=== PATIENT | male | born 1965 | race African-American/Black ===

== ENCOUNTER 2017-01-03 05:54 | Emergency (ER) | payer MEDICAID ==
[~2017-01-03] VITALS: Ht 175.3 cm; Wt 113.0 kg
[~2017-01-03 05:54] MED LIST: ALPR2TAB2 PO; AMIT10TA6 PO; ASPI81TA2 PO; ATOR20TA PO; CLOP75TA2 PO; HYDR-519 PO; Lisinopril PO; PHEN100C4 PO; QUET25TA PO
[2017-01-03] MEDS ORDERED: ACETAMINOPHEN 500MG TABLET PO ONE (08:00)
[2017-01-03] MEDS: FUROSEMIDE 40MG TABLET PO ONE ×2 (08:07→08:37)
[2017-01-03 08:16] LABS: BASOPHILS % 0.8 % (0.0-2.0); HEMATOCRIT. 40.6 % (42.0-52.0); HEMOGLOBIN. 13.4 g/dL (14.0-18.0); LYMPHOCYTES % 11.6 % (20.0-50.0); MEAN CORPUSCULAR HEMOGLOBIN 31.3 pg (28.0-32.0); MEAN CORPUSCULAR VOLUME 94.6 fL (80.0-94.0); MEAN PLATELET VOLUME 7.2 fl (7.4-10.4); MONOCYTES % 8.3 % (2.0-8.0); NEUTROPHILS % 78.3 % (40.0-76.0); PLATELET 422 x1000/uL (130-400); RED BLOOD CELL COUNT 4.29 mill/uL (4.7-6.1); RED CELL DISTRIBUTION WIDTH 14.9 % (11.6-14.6); WHITE BLOOD COUNT 15.5 x1000/uL (4.5-11.0)
[2017-01-03] MEDS ORDERED: ALBUTEROL (0.083%) 2.5MG/3ML NEB HHN STA (08:28)
[2017-01-03] MEDS ORDERED: IPRATROPIUM BROMIDE (0.02%) 0.5MG/2.5ML NEB HHN STA (08:28)
[2017-01-03 08:30] LABS: CLARITY URINE CLEAR (CLEAR); COLOR URINE DARK YELLOW (YELLOW); GLUCOSE URINE NEGATIVE (NEGATIVE); KETONES URINE NEGATIVE (NEGATIVE); LEUKOCYTE ESTERASE URINE NEGATIVE (NEGATIVE); NITRITE URINE NEGATIVE (NEGATIVE); OCCULT BLOOD URINE NEGATIVE (NEGATIVE); PROTEIN URINE NEGATIVE (NEGATIVE); SPECIFIC GRAVITY URINE 1.028 (1.005-1.030); UROBILINOGEN URINE 0.2 E.U./dL (0.2-1.0)
[2017-01-03 08:31] LABS: INR 1.2; PARTIAL THROMBOPLASTIN TIME 31.8 sec (24.0-34.0); PROTHROMBIN TIME 12.2 sec
[2017-01-03 08:36] LABS: ALANINE AMINOTRANSFERASE 84 IU/L (13-61); ALBUMIN 3.3 g/dL (3.4-5.0); ANION GAP 10; CALCIUM 8.8 mg/dL (8.5-10.1); CARBON DIOXIDE 31 mEq/L (21-32); CHLORIDE 103 mEq/L (98-107); ETHANOL BLOOD < 10 mg/dL; INDEX HEMOLYSI 1 (1-3); INDEX ICTERIC 1 (1-4); INDEX LIPEMIC 1 (1-3); NT PRO B-TYPE NATRIURETIC PEP 56 pg/mL (5-125); TROPONIN I < 0.02 ng/mL (0.00-0.04); UREA NITROGEN BLOOD 9 mg/dL (7-21); eGFR > 60 mL/min (>60)
[2017-01-03] MEDS ORDERED: ALBUTEROL (0.5%) 2.5MG/0.5ML NEB HHN ONE (08:46)
[2017-01-03 08:49] LABS: *AMPHETAMINES SCREEN URINE NEGATIVE (NEGATIVE); *BARBITURATES SCREEN URINE NEGATIVE (NEGATIVE); *BENZODIAZEPINES SCREEN URINE PRESUMTIVE POSITIVE (NEGATIVE); *COCAINE SCREEN URINE PRESUMTIVE POSITIVE (NEGATIVE); CANNABINOID URINE SCREEN PRESUMTIVE POSITIVE (NEGATIVE); ECSTASY MDMA SCREEN URINE NEGATIVE (NEGATIVE); METHADONE URINE SCREEN NEGATIVE (NEGATIVE); OPIATES URINE SCREEN PRESUMTIVE POSITIVE (NEGATIVE); PHENCYCLIDINE URINE SCREEN NEGATIVE (NEGATIVE)
[2017-01-03] MEDS ORDERED: KETOROLAC 60MG/2ML VIAL IM ONE (16:15)
[2017-01-04 11:30] VITALS: BP 112/68
== END 2017-01-04 12:45 | disposition home or self-care (01) ==
LOC: ER 07:05
DX: J44.1 Chronic obstructive pulmonary disease with (acute) exacerbation (principal); F32.9 Major depressive disorder, single episode, unspecified; R45.851 Suicidal ideations; R60.0 Localized edema; R10.31 Right lower quadrant pain; J44.9 Chronic obstructive pulmonary disease, unspecified; F17.210 Nicotine dependence, cigarettes, uncomplicated; F14.10 Cocaine abuse, uncomplicated; F12.10 Cannabis abuse, uncomplicated; F11.10 Opioid abuse, uncomplicated; F19.10 Other psychoactive substance abuse, uncomplicated; I50.9 Heart failure, unspecified; M19.90 Unspecified osteoarthritis, unspecified site; M79.605 Pain in left leg; M79.604 Pain in right leg; Z59.0 Homelessness
CPT/HCPCS: 29505; 36415; 71010; 73562; 74176; 80053; 80305; 81003; 83880; 84484; 85025; 85610; 85730; 93005; 93970; 94640; 99285; G0482; J7611; Z7610

== ENCOUNTER 2017-02-03 23:37 | Emergency (ER) | payer MEDICAID ==
[~2017-02-03] VITALS: Ht 175.3 cm; Wt 116.0 kg
[2017-02-04 00:25] LABS: BASOPHILS % 0.4 % (0.0-2.0); EOSINOPHILS % 2.5 % (0.0-5.0); HEMATOCRIT. 37.6 % (42.0-52.0); HEMOGLOBIN. 12.6 g/dL (14.0-18.0); LYMPHOCYTES % 26.9 % (20.0-50.0); MEAN CORPUSCULAR HEMOGLOBIN 31.2 pg (28.0-32.0); MEAN CORPUSCULAR HGB CONC 33.6 g/dL (31.0-37.0); MEAN CORPUSCULAR VOLUME 92.8 fL (80.0-94.0); MONOCYTES % 8.6 % (2.0-8.0); NEUTROPHILS % 61.6 % (40.0-76.0); PLATELET 476 x1000/uL (130-400); RED BLOOD CELL COUNT 4.05 mill/uL (4.7-6.1); RED CELL DISTRIBUTION WIDTH 14.1 % (11.6-14.6)
[2017-02-04 00:32] LABS: INR 1.2; PROTHROMBIN TIME 12.2 sec
[2017-02-04 00:40] LABS: ALANINE AMINOTRANSFERASE 27 IU/L (13-61); ALBUMIN 3.2 g/dL (3.4-5.0); ANION GAP 14; CALCIUM 8.5 mg/dL (8.5-10.1); CARBON DIOXIDE 26 mEq/L (21-32); CHLORIDE 109 mEq/L (98-107); ETHANOL BLOOD 107 mg/dL; INDEX HEMOLYSI 1 (1-3); INDEX ICTERIC 1 (1-4); INDEX LIPEMIC 1 (1-3); NT PRO B-TYPE NATRIURETIC PEP 218 pg/mL (5-125); TROPONIN I < 0.02 ng/mL (0.00-0.04); UREA NITROGEN BLOOD 6 mg/dL (7-21); eGFR > 60 mL/min (>60)
[2017-02-04 01:05] LABS: *AMPHETAMINES SCREEN URINE NEGATIVE (NEGATIVE); *BARBITURATES SCREEN URINE NEGATIVE (NEGATIVE); *BENZODIAZEPINES SCREEN URINE NEGATIVE (NEGATIVE); *COCAINE SCREEN URINE PRESUMTIVE POSITIVE (NEGATIVE); CANNABINOID URINE SCREEN PRESUMTIVE POSITIVE (NEGATIVE); ECSTASY MDMA SCREEN URINE NEGATIVE (NEGATIVE); METHADONE URINE SCREEN NEGATIVE (NEGATIVE); OPIATES URINE SCREEN NEGATIVE (NEGATIVE); PHENCYCLIDINE URINE SCREEN NEGATIVE (NEGATIVE)
[2017-02-04] MEDS ORDERED: ACETAMINOPHEN 325MG TABLET PO ONE (08:00)
[2017-02-04] MEDS ORDERED: QUETIAPINE FUMARATE 50MG TABLET PO SCH (18:30)
[2017-02-04 19:30] VITALS: BP 120/66
== END 2017-02-04 22:05 | disposition home or self-care (01) ==
LOC: ER 23:38
DX: T40.5X1A Poisoning by cocaine, accidental (unintentional), initial encounter (principal); R07.9 Chest pain, unspecified; F17.200 Nicotine dependence, unspecified, uncomplicated; I10 Essential (primary) hypertension; Z86.73 Personal history of transient ischemic attack (TIA), and cerebral infarction without residual deficits; Z79.82 Long term (current) use of aspirin; Y92.89 Other specified places as the place of occurrence of the external cause
CPT/HCPCS: 36415; 70450; 71010; 80053; 80305; 83880; 84484; 85025; 85610; 93005; 99285; G0482; Z7610

== ENCOUNTER 2017-07-16 06:12 | Inpatient (IN) | payer MEDICAID ==
[~2017-07-16] VITALS: Ht 170.2 cm; Wt 140.2 kg
[~2017-07-16 06:12] MED LIST changes: +ASPI-1160 PO; -ASPI81TA2 PO; +CLOP75TA16 PO; -CLOP75TA2 PO
[2017-07-16] MEDS ORDERED: FUROSEMIDE 40MG/4ML VIAL IVP ONE (07:00)
[2017-07-16] MEDS ORDERED: NITROGLYCERIN OINT 1GM/INCH UDPKT TD ONE (07:00)
[2017-07-16 07:28] LABS: BASOPHILS % 0.7 % (0.0-2.0); EOSINOPHILS % 1.7 % (0.0-5.0); HEMATOCRIT. 36.2 % (42.0-52.0); LYMPHOCYTES % 17.6 % (20.0-50.0); MEAN CORPUSCULAR HEMOGLOBIN 29.7 pg (28.0-32.0); MEAN CORPUSCULAR VOLUME 89.6 fL (80.0-94.0); MEAN PLATELET VOLUME 7.3 fl (7.4-10.4); MONOCYTES % 13.2 % (2.0-8.0); NEUTROPHILS % 66.8 % (40.0-76.0); PLATELET 453 x1000/uL (130-400); RED BLOOD CELL COUNT 4.03 mill/uL (4.7-6.1); RED CELL DISTRIBUTION WIDTH 14.9 % (11.6-14.6)
[2017-07-16 07:30] LABS: INR 1.3; PROTHROMBIN TIME 13.3 sec (9.4-11.6)
[2017-07-16] MEDS ORDERED: LORAZEPAM 1MG TABLET PO ONE (07:30)
[2017-07-16 07:40] LABS: CARBON DIOXIDE 24 mEq/L (21-32); CHLORIDE 107 mEq/L (98-107); ETHANOL BLOOD < 10 mg/dL; TROPONIN I < 0.02 ng/mL (0.00-0.04)
[2017-07-16] MEDS ORDERED: ONDANSETRON HCL 4MG/2ML VIAL IV ONE (08:15)
[2017-07-16] MEDS ORDERED: MORPHINE SULFATE 4 MG/ML CPJ (NOT FOR IM USE) IV ONE (08:15)
[2017-07-16 09:00] LABS: CLARITY URINE CLEAR (CLEAR); COLOR URINE YELLOW (YELLOW); GLUCOSE URINE NEGATIVE (NEGATIVE); KETONES URINE 1+ (NEGATIVE); LEUKOCYTE ESTERASE URINE NEGATIVE (NEGATIVE); NITRITE URINE NEGATIVE (NEGATIVE); OCCULT BLOOD URINE NEGATIVE (NEGATIVE); PROTEIN URINE TRACE (NEGATIVE); SPECIFIC GRAVITY URINE 1.029 (1.005-1.030); UROBILINOGEN URINE 0.2 E.U./dL (0.2-1.0)
[2017-07-16 09:25] LABS: *AMPHETAMINES SCREEN URINE NEGATIVE (NEGATIVE); *BARBITURATES SCREEN URINE NEGATIVE (NEGATIVE); *BENZODIAZEPINES SCREEN URINE NEGATIVE (NEGATIVE); *COCAINE SCREEN URINE PRESUMTIVE POSITIVE (NEGATIVE); CANNABINOID URINE SCREEN PRESUMTIVE POSITIVE (NEGATIVE); METHADONE URINE SCREEN NEGATIVE (NEGATIVE); OPIATES URINE SCREEN NEGATIVE (NEGATIVE); PHENCYCLIDINE URINE SCREEN NEGATIVE (NEGATIVE)
[2017-07-16] MEDS ORDERED: SODIUM CHLORIDE 0.9% 10ML VIAL ONE (11:08)
[2017-07-16] MEDS ORDERED: IOHEXOL-350 100 ML BOTTLE ONE (11:08)
[2017-07-16 11:15] VITALS: BP 122/92
[2017-07-16 11:51] VITALS: BP 122/92
[2017-07-16 12:30] VITALS: BP 122/72
[2017-07-16] MEDS ORDERED: IPRATROPIUM/ALBUTEROL 0.5-3(2.5)MG/3ML NEB INH PRN (13:00)
[2017-07-16] MEDS ORDERED: DIPHENHYDRAMINE 50MG/ML VIAL IV PRN (13:00)
[2017-07-16] MEDS ORDERED: ACETAMINOPHEN 325MG TABLET PO PRN (13:00)
[2017-07-16] MEDS ORDERED: DOCUSATE SODIUM 100MG CAPSULE PO PRN (13:00)
[2017-07-16] MEDS ORDERED: ONDANSETRON HCL 4MG/2ML VIAL IV PRN (13:00)
[2017-07-16] MEDS: ENOXAPARIN 40MG/0.4ML SYR SUBCUT SCH ×2 (13:00→21:00)
[2017-07-16] MEDS ORDERED: GUAIFENESIN 200MG/10ML SUGAR FREE UDC PO PRN (13:00)
[2017-07-16] MEDS ORDERED: ALPRAZOLAM 0.25 MG TABLET PO PRN (13:00)
[2017-07-16] MEDS: ASPIRIN 81MG EC TABLET PO SCH (13:17)
[2017-07-16] MEDS: HYDROCODONE/ACETAMINOPHEN 10/325MG TABLET PO PRN (13:24)
[2017-07-16 16:00] VITALS: BP 110/69
[2017-07-16 16:21] LABS: CREATINE KINASE 729 IU/L (39-308); TROPONIN I < 0.02 ng/mL (0.00-0.04)
[2017-07-16 20:00] VITALS: BP 131/87
[2017-07-16] MEDS ORDERED: ALPRAZOLAM 0.5 MG TABLET PO PRN (20:00)
[2017-07-16] MEDS: MORPHINE SULFATE 4 MG/ML CPJ (NOT FOR IM USE) IV PRN (20:09)
[2017-07-16] MEDS: ATORVASTATIN CALCIUM 40MG TABLET PO SCH (21:54)
[2017-07-16] MEDS: AMITRIPTYLINE 10MG TABLET PO SCH (21:54)
[2017-07-16 23:37] LABS: CREATINE KINASE 655 IU/L (39-308); TROPONIN I < 0.02 ng/mL (0.00-0.04)
[2017-07-17] VITALS: BP 123/66
[2017-07-17 04:00] VITALS: BP 111/46
[2017-07-17 08:00] VITALS: BP 103/49
[2017-07-17] MEDS: ENOXAPARIN 40MG/0.4ML SYR SUBCUT SCH ×2 (08:57→21:00)
[2017-07-17] MEDS: CLOPIDOGREL 75MG TABLET PO SCH (08:58)
[2017-07-17] MEDS: QUETIAPINE FUMARATE 50MG TABLET PO SCH (08:58)
[2017-07-17] MEDS: ASPIRIN 81MG EC TABLET PO SCH (08:58)
[2017-07-17] MEDS: MORPHINE SULFATE 4 MG/ML CPJ (NOT FOR IM USE) IV PRN (09:00)
[2017-07-17] MEDS ORDERED: ASPIRIN 81MG TABLET PO SCH (09:00)
[2017-07-17] MEDS: PHENYTOIN SODIUM EXTENDED 100MG CAPSULE PO SCH (09:00)
[2017-07-17 11:40] LABS: BASOPHILS % 0.9 % (0.0-2.0); EOSINOPHILS % 2.9 % (0.0-5.0); HEMATOCRIT. 35.3 % (42.0-52.0); HEMOGLOBIN. 11.8 g/dL (14.0-18.0); LYMPHOCYTES % 16.7 % (20.0-50.0); MEAN CORPUSCULAR VOLUME 89.8 fL (80.0-94.0); MONOCYTES % 10.6 % (2.0-8.0); NEUTROPHILS % 68.9 % (40.0-76.0); PLATELET 369 x1000/uL (130-400); RED BLOOD CELL COUNT 3.93 mill/uL (4.7-6.1); RED CELL DISTRIBUTION WIDTH 14.2 % (11.6-14.6)
[2017-07-17 12:02] LABS: CARBON DIOXIDE 30 mEq/L (21-32); CHLORIDE 103 mEq/L (98-107); HDL CHOLESTEROL 29 mg/dL (40-59); LDL CHOLESTEROL 91 mg/dL (5-100); T4 FREE 0.78 ng/dL (0.76-1.46)
[2017-07-17 16:00] VITALS: BP 128/80
[2017-07-17 20:00] VITALS: BP 145/63
[2017-07-17] MEDS: ATORVASTATIN CALCIUM 40MG TABLET PO SCH (21:00)
[2017-07-17] MEDS: AMITRIPTYLINE 10MG TABLET PO SCH (21:00)
[2017-07-18] VITALS: BP 149/83
[2017-07-18 04:00] VITALS: BP 126/88
[2017-07-18 08:00] VITALS: BP 104/79
[2017-07-18] MEDS: ENOXAPARIN 40MG/0.4ML SYR SUBCUT SCH ×2 (09:00→21:00)
[2017-07-18] MEDS: ASPIRIN 81MG EC TABLET PO SCH ×2 (09:00→09:11)
[2017-07-18] MEDS: QUETIAPINE FUMARATE 50MG TABLET PO SCH ×3 (09:00→21:25)
[2017-07-18] MEDS: PHENYTOIN SODIUM EXTENDED 100MG CAPSULE PO SCH (09:00)
[2017-07-18] MEDS: CLOPIDOGREL 75MG TABLET PO SCH ×2 (09:00→09:11)
[2017-07-18 12:00] VITALS: BP 141/94
[2017-07-18] MEDS: ALPRAZOLAM 0.5 MG TABLET PO PRN (14:18)
[2017-07-18] MEDS: HYDROCODONE/ACETAMINOPHEN 10/325MG TABLET PO PRN (14:19)
[2017-07-18 16:00] VITALS: BP 138/87
[2017-07-18] MEDS: MUPIROCIN 2% CREAM 15GM TOP SCH ×2 (16:00→21:25)
[2017-07-18 20:00] VITALS: BP 139/92
[2017-07-18] MEDS: AMITRIPTYLINE 10MG TABLET PO SCH (21:25)
[2017-07-18] MEDS: ATORVASTATIN CALCIUM 40MG TABLET PO SCH (21:25)
[2017-07-19] VITALS: BP 120/63
[2017-07-19 04:00] VITALS: BP 136/82
[2017-07-19] MEDS: MUPIROCIN 2% CREAM 15GM TOP SCH ×3 (06:00→20:45)
[2017-07-19 08:00] VITALS: BP 99/64
[2017-07-19] MEDS: ENOXAPARIN 40MG/0.4ML SYR SUBCUT SCH ×2 (09:00→20:42)
[2017-07-19] MEDS: PHENYTOIN SODIUM EXTENDED 100MG CAPSULE PO SCH (09:00)
[2017-07-19] MEDS: ASPIRIN 81MG EC TABLET PO SCH (09:16)
[2017-07-19] MEDS: CLOPIDOGREL 75MG TABLET PO SCH (09:16)
[2017-07-19] MEDS: ALPRAZOLAM 0.5 MG TABLET PO PRN (09:21)
[2017-07-19 12:00] VITALS: BP 101/68
[2017-07-19 16:00] VITALS: BP 124/80
[2017-07-19] MEDS: HYDROCODONE/ACETAMINOPHEN 10/325MG TABLET PO PRN (17:49)
[2017-07-19 20:00] VITALS: BP 131/75
[2017-07-19] MEDS: QUETIAPINE FUMARATE 50MG TABLET PO SCH (20:42)
[2017-07-19] MEDS: AMITRIPTYLINE 10MG TABLET PO SCH (20:42)
[2017-07-19] MEDS: ATORVASTATIN CALCIUM 40MG TABLET PO SCH (20:42)
[2017-07-20] VITALS: BP 116/77
[2017-07-20 04:00] VITALS: BP 124/69
[2017-07-20] MEDS: MUPIROCIN 2% CREAM 15GM TOP SCH ×3 (06:00→22:11)
[2017-07-20] MEDS: ENOXAPARIN 40MG/0.4ML SYR SUBCUT SCH ×2 (07:36→21:00)
[2017-07-20 08:00] VITALS: BP 128/73
[2017-07-20] MEDS: ASPIRIN 81MG EC TABLET PO SCH (08:43)
[2017-07-20] MEDS: CLOPIDOGREL 75MG TABLET PO SCH (08:43)
[2017-07-20] MEDS: PHENYTOIN SODIUM EXTENDED 100MG CAPSULE PO SCH (08:46)
[2017-07-20 12:00] VITALS: BP 134/84
[2017-07-20] MEDS: HYDROCODONE/ACETAMINOPHEN 10/325MG TABLET PO PRN ×2 (12:47→22:15)
[2017-07-20 16:00] VITALS: BP 120/71
[2017-07-20 20:00] VITALS: BP 130/88
[2017-07-20] MEDS: ATORVASTATIN CALCIUM 40MG TABLET PO SCH (22:11)
[2017-07-20] MEDS: AMITRIPTYLINE 10MG TABLET PO SCH (22:11)
[2017-07-20] MEDS: QUETIAPINE FUMARATE 50MG TABLET PO SCH (22:11)
[2017-07-21] VITALS: BP 111/74
[2017-07-21 04:00] VITALS: BP 103/60
[2017-07-21 06:03] LABS: HEMATOCRIT 35.5 % (42.0-52.0); HEMOGLOBIN 11.9 g/dL (14.0-18.0); MEAN CORPUSCULAR HEMOGLOBIN 29.9 pg (28.0-32.0); MEAN CORPUSCULAR VOLUME 89.2 fL (80.0-94.0); PLATELET 387 x1000/uL (130-400); RED BLOOD CELL COUNT 3.98 mill/uL (4.7-6.1); RED CELL DISTRIBUTION WIDTH 14.4 % (11.6-14.6)
[2017-07-21] MEDS: MUPIROCIN 2% CREAM 15GM TOP SCH ×3 (07:13→21:08)
[2017-07-21] MEDS: PHENYTOIN SODIUM EXTENDED 100MG CAPSULE PO SCH (08:09)
[2017-07-21 08:10] LABS: CARBON DIOXIDE 28 mEq/L (21-32); CHLORIDE 104 mEq/L (98-107)
[2017-07-21] MEDS: ASPIRIN 81MG EC TABLET PO SCH (08:24)
[2017-07-21] MEDS: CLOPIDOGREL 75MG TABLET PO SCH (08:24)
[2017-07-21] MEDS: ENOXAPARIN 40MG/0.4ML SYR SUBCUT SCH ×4 (08:24→21:09)
[2017-07-21 12:00] VITALS: BP 120/78
[2017-07-21 16:00] VITALS: BP 116/73
[2017-07-21 20:00] VITALS: BP 115/65
[2017-07-21] MEDS: AMITRIPTYLINE 10MG TABLET PO SCH (21:09)
[2017-07-21] MEDS: QUETIAPINE FUMARATE 50MG TABLET PO SCH (21:09)
[2017-07-21] MEDS: ATORVASTATIN CALCIUM 40MG TABLET PO SCH (21:09)
[2017-07-22] VITALS: BP 119/63
[2017-07-22 04:00] VITALS: BP 118/68
[2017-07-22] MEDS: MUPIROCIN 2% CREAM 15GM TOP SCH ×3 (06:00→20:52)
[2017-07-22 08:00] VITALS: BP 91/52
[2017-07-22] MEDS: PHENYTOIN SODIUM EXTENDED 100MG CAPSULE PO SCH (08:46)
[2017-07-22] MEDS: CLOPIDOGREL 75MG TABLET PO SCH (08:47)
[2017-07-22] MEDS: ASPIRIN 81MG EC TABLET PO SCH (08:47)
[2017-07-22 12:00] VITALS: BP 106/58
[2017-07-22 16:00] VITALS: BP 104/72
[2017-07-22 20:00] VITALS: BP 122/65
[2017-07-22] MEDS: AMITRIPTYLINE 10MG TABLET PO SCH (20:50)
[2017-07-22] MEDS: ATORVASTATIN CALCIUM 40MG TABLET PO SCH (20:50)
[2017-07-22] MEDS: QUETIAPINE FUMARATE 50MG TABLET PO SCH (20:50)
[2017-07-22] MEDS: ENOXAPARIN 40MG/0.4ML SYR SUBCUT SCH (20:53)
[2017-07-23] VITALS: BP 146/118
[2017-07-23 04:00] VITALS: BP 141/71
[2017-07-23] MEDS: MUPIROCIN 2% CREAM 15GM TOP SCH ×3 (05:31→20:27)
[2017-07-23 08:00] VITALS: BP 118/70
[2017-07-23] MEDS: PHENYTOIN SODIUM EXTENDED 100MG CAPSULE PO SCH (09:00)
[2017-07-23] MEDS: ENOXAPARIN 40MG/0.4ML SYR SUBCUT SCH ×2 (09:00→20:31)
[2017-07-23] MEDS: CLOPIDOGREL 75MG TABLET PO SCH (09:50)
[2017-07-23] MEDS: ASPIRIN 81MG EC TABLET PO SCH (09:50)
[2017-07-23] MEDS: HYDROCODONE/ACETAMINOPHEN 10/325MG TABLET PO PRN (09:52)
[2017-07-23 12:00] VITALS: BP 117/73
[2017-07-23 16:00] VITALS: BP 115/73
[2017-07-23 20:00] VITALS: BP 149/82
[2017-07-23] MEDS: QUETIAPINE FUMARATE 50MG TABLET PO SCH (20:25)
[2017-07-23] MEDS: ATORVASTATIN CALCIUM 40MG TABLET PO SCH (20:25)
[2017-07-23] MEDS: AMITRIPTYLINE 10MG TABLET PO SCH (20:25)
[2017-07-24] VITALS: BP 109/66
[2017-07-24 04:00] VITALS: BP 111/68
[2017-07-24 06:15] LABS: HEMATOCRIT 35.8 % (42.0-52.0); HEMOGLOBIN 11.8 g/dL (14.0-18.0); MEAN CORPUSCULAR HEMOGLOBIN 29.5 pg (28.0-32.0); MEAN CORPUSCULAR VOLUME 89.6 fL (80.0-94.0); PLATELET 387 x1000/uL (130-400); RED CELL DISTRIBUTION WIDTH 14.1 % (11.6-14.6)
[2017-07-24 06:33] LABS: CARBON DIOXIDE 28 mEq/L (21-32); CHLORIDE 105 mEq/L (98-107)
[2017-07-24] MEDS: MUPIROCIN 2% CREAM 15GM TOP SCH (06:57)
[2017-07-24] MEDS: HYDROCODONE/ACETAMINOPHEN 10/325MG TABLET PO PRN (07:01)
[2017-07-24 08:00] VITALS: BP 106/58
[2017-07-24] MEDS: ENOXAPARIN 40MG/0.4ML SYR SUBCUT SCH (08:27)
[2017-07-24] MEDS: CLOPIDOGREL 75MG TABLET PO SCH (08:27)
[2017-07-24] MEDS: ASPIRIN 81MG EC TABLET PO SCH (08:27)
[2017-07-24] MEDS: PHENYTOIN SODIUM EXTENDED 100MG CAPSULE PO SCH (08:27)
[2017-07-24 10:23] VITALS: BP 106/58
== END 2017-07-24 13:03 | disposition home or self-care (01) | DRG 194 ==
LOC: ER 06:12 → EDBEDREQ 07:41 → EDBEDREQSVC 07:52 → EDBEDREQ 09:31 → ENRESERV 10:09 → 7WST 11:31
PROVIDERS: ADMIT Internal Medicine; ATTEND Internal Medicine
PROC: 02HV33Z Insertion of Infusion Device into Superior Vena Cava, Percutaneous Approach (ICD-10-PCS; principal; 2017-07-16)
PROC: B548ZZA Ultrasonography of Superior Vena Cava, Guidance (ICD-10-PCS; 2017-07-16)
PROC: 5A09357 Assistance with Respiratory Ventilation, Less than 24 Consecutive Hours, Continuous Positive Airway Pressure (ICD-10-PCS; 2017-07-18)
DX: I11.0 Hypertensive heart disease with heart failure (principal); I63.9 Cerebral infarction, unspecified; J96.00 Acute respiratory failure, unspecified whether with hypoxia or hypercapnia; I49.5 Sick sinus syndrome; Z68.42 Body mass index [BMI] 45.0-49.9, adult; I69.354 Hemiplegia and hemiparesis following cerebral infarction affecting left non-dominant side; R65.10 Systemic inflammatory response syndrome (SIRS) of non-infectious origin without acute organ dysfunction; I50.43 Acute on chronic combined systolic (congestive) and diastolic (congestive) heart failure; M48.02 Spinal stenosis, cervical region; G83.24 Monoplegia of upper limb affecting left nondominant side; R07.89 Other chest pain; E66.9 Obesity, unspecified; F14.10 Cocaine abuse, uncomplicated; E78.00 Pure hypercholesterolemia, unspecified; F40.240 Claustrophobia; I44.30 Unspecified atrioventricular block; F31.9 Bipolar disorder, unspecified; G40.909 Epilepsy, unspecified, not intractable, without status epilepticus; G47.33 Obstructive sleep apnea (adult) (pediatric); E78.5 Hyperlipidemia, unspecified; F17.200 Nicotine dependence, unspecified, uncomplicated; F12.10 Cannabis abuse, uncomplicated; F41.9 Anxiety disorder, unspecified; F43.10 Post-traumatic stress disorder, unspecified; Z90.49 Acquired absence of other specified parts of digestive tract; Z79.02 Long term (current) use of antithrombotics/antiplatelets; Z79.899 Other long term (current) drug therapy; Z82.49 Family history of ischemic heart disease and other diseases of the circulatory system; Z91.19 Patient's noncompliance with other medical treatment and regimen; Z71.51 Drug abuse counseling and surveillance of drug abuser; Z71.41 Alcohol abuse counseling and surveillance of alcoholic
CPT/HCPCS: 36415; 36569; 70450; 70496; 71010; 76937; 80048; 80053; 80061; 80305; 81001; 82550; 83880; 84439; 84443; 84484; 85025; 85027; 85610; 93005; 93970; 94640; 94660; 96374; 96375; 97112; 97116; 97163; 97167; 97530; 97535; 99291; A4216; C1725; G0482; J1650; J1940; J2270; J2405; J7030; J7620; L1830; Q9967

== ENCOUNTER 2018-11-19 00:56 | Inpatient (IN) | payer MEDICAID ==
[~2018-11-19] VITALS: Ht 175.3 cm; Wt 115.7 kg
[~2018-11-19 00:56] MED LIST changes: -AMIT10TA6 PO; -ATOR20TA PO; -CLOP75TA16 PO; +FLUO40CA49 PO; -HYDR-519 PO; -Lisinopril PO; -PHEN100C4 PO
[2018-11-19] MEDS ORDERED: ONDANSETRON HCL 4MG/2ML INJ IV STA (03:02)
[2018-11-19] MEDS ORDERED: MORPHINE SULFATE 10 MG/ML CPJ IV ONE (03:15)
[2018-11-19] MEDS ORDERED: MIDAZOLAM HCL 2 MG/2 ML VIAL IV ONE (03:30)
[2018-11-19 04:31] LABS: BASOPHILS % 0.5 % (0.0-2.0); EOSINOPHILS % 3.1 % (0.0-5.0); HEMATOCRIT. 36.5 % (42.0-52.0); HEMOGLOBIN. 11.8 g/dL (14.0-18.0); LYMPHOCYTES % 21.9 % (20.0-50.0); MEAN CORPUSCULAR HEMOGLOBIN 28.7 pg (28.0-32.0); MEAN CORPUSCULAR VOLUME 88.3 fL (80.0-94.0); MEAN PLATELET VOLUME 7.3 fl (7.4-10.4); MONOCYTES % 14.2 % (2.0-8.0); NEUTROPHILS % 60.3 % (40.0-76.0); PLATELET 461 x1000/uL (130-400); RED BLOOD CELL COUNT 4.14 mill/uL (4.7-6.1)
[2018-11-19 04:43] LABS: CHLORIDE 105 mEq/L (98-107)
[2018-11-19] MEDS ORDERED: DOCUSATE SODIUM 100MG CAPSULE PO PRN (07:30)
[2018-11-19] MEDS ORDERED: CLONIDINE 0.1MG TABLET PO PRN (07:30)
[2018-11-19] MEDS ORDERED: MAGNESIUM/ALUMINUM HYDROXIDE/SIMETHICONE 30ML UDC PO PRN (07:30)
[2018-11-19] MEDS ORDERED: HYDRALAZINE 20MG/ML VIAL IV PRN (07:30)
[2018-11-19] MEDS ORDERED: GUAIFENESIN 200MG/10ML SUGAR FREE UDC PO PRN (07:30)
[2018-11-19] MEDS ORDERED: DIPHENHYDRAMINE 50MG/ML VIAL IV PRN (07:30)
[2018-11-19] MEDS ORDERED: IPRATROPIUM/ALBUTEROL 0.5-3(2.5)MG/3ML NEB INH PRN (07:30)
[2018-11-19] MEDS: LORAZEPAM 2MG/ML CPJ IV PRN ×2 (08:37→21:37)
[2018-11-19] MEDS: MORPHINE SULFATE 4 MG/ML CPJ (NOT FOR IM USE) IV PRN ×3 (13:07→23:19)
[2018-11-19] MEDS: ONDANSETRON HCL 4MG/2ML INJ IV PRN ×2 (13:08→18:48)
[2018-11-19 20:00] VITALS: BP 128/69
[2018-11-19 21:47] VITALS: BP 130/91
[2018-11-19] MEDS: SODIUM CHLORIDE 0.9% INJ 3ML FLUSH IVF SCH (22:00)
[2018-11-19 22:06] LABS: CREATINE KINASE 340 IU/L (39-308)
[2018-11-19 22:07] LABS: CREATINE KINASE MB FRACTION 2.9 ng/mL (0.5-3.6)
[2018-11-19] MEDS: ENOXAPARIN 30MG/0.3ML SYR SUBCUT SCH (22:30)
[2018-11-19] MEDS: AMLODIPINE 2.5MG TABLET PO SCH (23:11)
[2018-11-19] MEDS: POTASSIUM CHLORIDE 20MEQ TABLET SR PO SCH (23:11)
[2018-11-19] MEDS: ASPIRIN 81MG EC TABLET PO SCH (23:12)
[2018-11-20] MEDS: MORPHINE SULFATE 4 MG/ML CPJ (NOT FOR IM USE) IV PRN ×6 (02:37→23:06)
[2018-11-20 04:00] VITALS: BP 130/57
[2018-11-20] MEDS: SODIUM CHLORIDE 0.9% INJ 3ML FLUSH IVF SCH ×3 (06:07→20:52)
[2018-11-20 08:00] VITALS: BP 116/62
[2018-11-20] MEDS: ASPIRIN 81MG EC TABLET PO SCH (09:04)
[2018-11-20] MEDS: POTASSIUM CHLORIDE 20MEQ TABLET SR PO SCH ×2 (09:04→17:21)
[2018-11-20] MEDS: AMLODIPINE 2.5MG TABLET PO SCH ×2 (09:05→20:46)
[2018-11-20] MEDS: ENOXAPARIN 30MG/0.3ML SYR SUBCUT SCH ×2 (09:06→20:47)
[2018-11-20 10:06] LABS: BASOPHILS % 0.4 % (0.0-2.0); CHLORIDE 110 mEq/L (98-107); EOSINOPHILS % 4.7 % (0.0-5.0); HEMATOCRIT. 36.3 % (42.0-52.0); HEMOGLOBIN. 11.7 g/dL (14.0-18.0); LYMPHOCYTES % 21.8 % (20.0-50.0); MEAN CORPUSCULAR HEMOGLOBIN 28.7 pg (28.0-32.0); MEAN CORPUSCULAR VOLUME 89.3 fL (80.0-94.0); MEAN PLATELET VOLUME 7.5 fl (7.4-10.4); MONOCYTES % 11.3 % (2.0-8.0); NEUTROPHILS % 61.8 % (40.0-76.0); PLATELET 409 x1000/uL (130-400); RED BLOOD CELL COUNT 4.07 mill/uL (4.7-6.1); RED CELL DISTRIBUTION WIDTH 16.4 % (11.6-14.6)
[2018-11-20 10:19] LABS: T4 FREE 0.97 ng/dL (0.76-1.46)
[2018-11-20 10:20] LABS: LDL CHOLESTEROL 126 mg/dL (5-100)
[2018-11-20 10:21] LABS: CREATINE KINASE 270 IU/L (39-308); CREATINE KINASE MB FRACTION 2.7 ng/mL (0.5-3.6)
[2018-11-20 10:22] LABS: HDL CHOLESTEROL 27 mg/dL (40-59)
[2018-11-20 12:00] VITALS: BP 111/79
[2018-11-20 20:00] VITALS: BP_SYST 124; BP_SYST 130; BP_DIAS 62; BP_DIAS 85
[2018-11-20 20:16] LABS: CLARITY URINE CLEAR (CLEAR); COLOR URINE YELLOW (YELLOW); KETONES URINE NEGATIVE (NEGATIVE); LEUKOCYTE ESTERASE URINE NEGATIVE (NEGATIVE); NITRITE URINE NEGATIVE (NEGATIVE); OCCULT BLOOD URINE NEGATIVE (NEGATIVE); PROTEIN URINE NEGATIVE (NEGATIVE); UROBILINOGEN URINE 0.2 E.U./dL (0.2-1.0)
[2018-11-20 20:47] LABS: OPIATES URINE SCREEN PRESUMTIVE POSITIVE (NEGATIVE)
[2018-11-20 20:48] LABS: *AMPHETAMINES SCREEN URINE NEGATIVE (NEGATIVE); *BARBITURATES SCREEN URINE NEGATIVE (NEGATIVE); *BENZODIAZEPINES SCREEN URINE PRESUMTIVE POSITIVE (NEGATIVE); *COCAINE SCREEN URINE PRESUMTIVE POSITIVE (NEGATIVE); CANNABINOID URINE SCREEN NEGATIVE (NEGATIVE); PHENCYCLIDINE URINE SCREEN NEGATIVE (NEGATIVE)
[2018-11-20 20:50] LABS: METHADONE URINE SCREEN NEGATIVE (NEGATIVE)
[2018-11-20] MEDS: LORAZEPAM 2MG/ML CPJ IV PRN (20:51)
[2018-11-21] VITALS: BP 147/73
[2018-11-21] MEDS: MORPHINE SULFATE 4 MG/ML CPJ (NOT FOR IM USE) IV PRN ×4 (03:33→20:05)
[2018-11-21 04:00] VITALS: BP 143/73
[2018-11-21] MEDS: SODIUM CHLORIDE 0.9% INJ 3ML FLUSH IVF SCH ×3 (05:51→21:24)
[2018-11-21 06:36] LABS: BASOPHILS % 0.6 % (0.0-2.0); HEMOGLOBIN. 11.7 g/dL (14.0-18.0); LYMPHOCYTES % 26.5 % (20.0-50.0); MEAN CORPUSCULAR HEMOGLOBIN 28.8 pg (28.0-32.0); MEAN CORPUSCULAR VOLUME 88.8 fL (80.0-94.0); MEAN PLATELET VOLUME 7.5 fl (7.4-10.4); NEUTROPHILS % 54.9 % (40.0-76.0); PLATELET 419 x1000/uL (130-400); RED BLOOD CELL COUNT 4.05 mill/uL (4.7-6.1); RED CELL DISTRIBUTION WIDTH 15.9 % (11.6-14.6)
[2018-11-21 07:08] LABS: CHLORIDE 108 mEq/L (98-107)
[2018-11-21 08:00] VITALS: BP 132/73
[2018-11-21] MEDS: POTASSIUM CHLORIDE 20MEQ TABLET SR PO SCH ×2 (08:45→19:08)
[2018-11-21] MEDS: ASPIRIN 81MG EC TABLET PO SCH (08:45)
[2018-11-21] MEDS: AMLODIPINE 2.5MG TABLET PO SCH (08:46)
[2018-11-21] MEDS: ENOXAPARIN 30MG/0.3ML SYR SUBCUT SCH ×3 (09:00→21:24)
[2018-11-21 12:00] VITALS: BP 138/97
[2018-11-21 16:00] VITALS: BP 143/72
[2018-11-21 20:00] VITALS: BP_SYST 116; BP_SYST 125; BP_DIAS 77; BP_DIAS 83
[2018-11-21] MEDS: AMLODIPINE 5MG TABLET PO SCH ×2 (20:06→21:00)
[2018-11-21] MEDS: LORAZEPAM 2MG/ML CPJ IV PRN (21:23)
[2018-11-22] VITALS: BP 137/68
[2018-11-22] MEDS: MORPHINE SULFATE 4 MG/ML CPJ (NOT FOR IM USE) IV PRN ×4 (00:48→19:53)
[2018-11-22 04:00] VITALS: BP 129/73
[2018-11-22] MEDS: SODIUM CHLORIDE 0.9% INJ 3ML FLUSH IVF SCH ×3 (07:07→21:21)
[2018-11-22 08:00] VITALS: BP 132/78
[2018-11-22] MEDS: POTASSIUM CHLORIDE 20MEQ TABLET SR PO SCH ×2 (09:19→19:51)
[2018-11-22] MEDS: ASPIRIN 81MG EC TABLET PO SCH (09:19)
[2018-11-22] MEDS: AMLODIPINE 5MG TABLET PO SCH ×2 (09:20→21:21)
[2018-11-22] MEDS: ENOXAPARIN 30MG/0.3ML SYR SUBCUT SCH ×3 (09:22→21:21)
[2018-11-22 12:00] VITALS: BP 127/73
[2018-11-22] MEDS: LORAZEPAM 2MG/ML CPJ IV PRN ×2 (12:46→21:32)
[2018-11-22 16:00] VITALS: BP 148/78
[2018-11-22 20:00] VITALS: BP_SYST 139; BP_SYST 162; BP_DIAS 81; BP_DIAS 93
[2018-11-23] VITALS: BP 148/82
[2018-11-23] MEDS: MORPHINE SULFATE 4 MG/ML CPJ (NOT FOR IM USE) IV PRN ×6 (00:12→21:09)
[2018-11-23 04:00] VITALS: BP 124/73
[2018-11-23] MEDS: SODIUM CHLORIDE 0.9% INJ 3ML FLUSH IVF SCH ×3 (06:57→21:17)
[2018-11-23] MEDS: POTASSIUM CHLORIDE 20MEQ TABLET SR PO SCH ×2 (08:29→16:55)
[2018-11-23] MEDS: ASPIRIN 81MG EC TABLET PO SCH (08:29)
[2018-11-23 08:30] VITALS: BP 138/82
[2018-11-23] MEDS: AMLODIPINE 5MG TABLET PO SCH ×2 (08:30→21:08)
[2018-11-23] MEDS: ENOXAPARIN 30MG/0.3ML SYR SUBCUT SCH ×3 (08:31→21:08)
[2018-11-23 12:00] VITALS: BP 110/60
[2018-11-23 16:00] VITALS: BP 117/73
[2018-11-23 20:00] VITALS: BP_SYST 112; BP_SYST 125; BP_DIAS 51; BP_DIAS 64
[2018-11-23] MEDS: LORAZEPAM 2MG/ML CPJ IV PRN (23:13)
[2018-11-24] VITALS: BP 119/60
[2018-11-24] MEDS: MORPHINE SULFATE 4 MG/ML CPJ (NOT FOR IM USE) IV PRN ×2 (01:22→05:33)
[2018-11-24 04:00] VITALS: BP 106/68
[2018-11-24] MEDS: SODIUM CHLORIDE 0.9% INJ 3ML FLUSH IVF SCH ×3 (06:02→21:48)
[2018-11-24 08:00] VITALS: BP 130/60
[2018-11-24] MEDS: ENOXAPARIN 30MG/0.3ML SYR SUBCUT SCH ×3 (09:00→20:56)
[2018-11-24] MEDS: AMLODIPINE 5MG TABLET PO SCH ×2 (09:02→20:52)
[2018-11-24] MEDS: POTASSIUM CHLORIDE 20MEQ TABLET SR PO SCH ×2 (09:02→17:00)
[2018-11-24] MEDS: ASPIRIN 81MG EC TABLET PO SCH (09:02)
[2018-11-24 12:00] VITALS: BP 127/70
[2018-11-24] MEDS ORDERED: IBUPROFEN 600MG TABLET PO PRN (12:15)
[2018-11-24 16:34] VITALS: BP 120/75
[2018-11-24 20:30] VITALS: BP 124/76
[2018-11-25] VITALS: BP 117/76
[2018-11-25 04:00] VITALS: BP 110/74
[2018-11-25] MEDS: SODIUM CHLORIDE 0.9% INJ 3ML FLUSH IVF SCH ×3 (06:26→21:18)
[2018-11-25 08:00] VITALS: BP 139/70
[2018-11-25] MEDS: ASPIRIN 81MG EC TABLET PO SCH (08:42)
[2018-11-25] MEDS: AMLODIPINE 5MG TABLET PO SCH ×2 (08:42→21:23)
[2018-11-25] MEDS: POTASSIUM CHLORIDE 20MEQ TABLET SR PO SCH ×2 (08:45→17:00)
[2018-11-25] MEDS: ENOXAPARIN 30MG/0.3ML SYR SUBCUT SCH ×3 (08:45→21:19)
[2018-11-25 12:00] VITALS: BP 115/75
[2018-11-25 16:00] VITALS: BP 115/81
[2018-11-25 20:00] VITALS: BP_SYST 116; BP_SYST 123; BP_DIAS 60; BP_DIAS 67
[2018-11-25] MEDS: CLONAZEPAM 0.5MG TABLET PO SCH (21:19)
[2018-11-26] VITALS: BP 106/65
[2018-11-26 04:00] VITALS: BP 124/70
[2018-11-26] MEDS: TRAMADOL 50MG TABLET PO PRN ×2 (04:54→09:53)
[2018-11-26] MEDS: SODIUM CHLORIDE 0.9% INJ 3ML FLUSH IVF SCH ×2 (04:56→21:00)
[2018-11-26] MEDS: CLONAZEPAM 0.5MG TABLET PO SCH ×3 (05:01→21:00)
[2018-11-26 08:00] VITALS: BP_SYST 106; BP_SYST 133; BP_SYST 141; BP_DIAS 58; BP_DIAS 64
[2018-11-26] MEDS: ENOXAPARIN 30MG/0.3ML SYR SUBCUT SCH ×2 (09:00→21:00)
[2018-11-26] MEDS: POTASSIUM CHLORIDE 20MEQ TABLET SR PO SCH ×3 (09:00→16:13)
[2018-11-26] MEDS: AMLODIPINE 5MG TABLET PO SCH ×2 (09:00→20:56)
[2018-11-26] MEDS: ASPIRIN 81MG EC TABLET PO SCH (09:52)
[2018-11-26 12:00] VITALS: BP 136/61
[2018-11-26 16:00] VITALS: BP 134/57
[2018-11-26 20:00] VITALS: BP_SYST 124; BP_SYST 129; BP_DIAS 60; BP_DIAS 63
[2018-11-27] VITALS: BP 126/68
[2018-11-27 04:00] VITALS: BP 120/70
[2018-11-27] MEDS: SODIUM CHLORIDE 0.9% INJ 3ML FLUSH IVF SCH ×2 (05:31→22:27)
[2018-11-27] MEDS: CLONAZEPAM 0.5MG TABLET PO SCH ×3 (06:00→22:27)
[2018-11-27] MEDS ORDERED: MORPHINE SULFATE 4 MG/ML CPJ (NOT FOR IM USE) IV NR ×2 (06:08→19:00)
[2018-11-27 08:00] VITALS: BP_SYST 102; BP_SYST 103; BP_DIAS 67; BP_DIAS 73
[2018-11-27] MEDS: ENOXAPARIN 30MG/0.3ML SYR SUBCUT SCH ×2 (09:00→20:53)
[2018-11-27] MEDS: ASPIRIN 81MG EC TABLET PO SCH (09:00)
[2018-11-27] MEDS: POTASSIUM CHLORIDE 20MEQ TABLET SR PO SCH ×2 (09:00→17:00)
[2018-11-27] MEDS: AMLODIPINE 5MG TABLET PO SCH ×2 (09:00→20:53)
[2018-11-27 12:00] VITALS: BP 130/73
[2018-11-27 16:00] VITALS: BP 113/73
[2018-11-27 20:00] VITALS: BP_SYST 130; BP_SYST 132; BP_DIAS 62; BP_DIAS 63
[2018-11-28] VITALS: BP 129/76
[2018-11-28 04:00] VITALS: BP 113/41
[2018-11-28] MEDS: SODIUM CHLORIDE 0.9% INJ 3ML FLUSH IVF SCH ×2 (06:00→14:00)
[2018-11-28] MEDS: CLONAZEPAM 0.5MG TABLET PO SCH ×2 (06:48→14:14)
[2018-11-28 08:00] VITALS: BP 105/76
[2018-11-28] MEDS: ENOXAPARIN 30MG/0.3ML SYR SUBCUT SCH (09:00)
[2018-11-28] MEDS: POTASSIUM CHLORIDE 20MEQ TABLET SR PO SCH ×2 (09:00→17:00)
[2018-11-28] MEDS: AMLODIPINE 5MG TABLET PO SCH (10:08)
[2018-11-28] MEDS: ASPIRIN 81MG EC TABLET PO SCH (10:08)
[2018-11-28 12:00] VITALS: BP 122/98
[2018-11-28] MEDS: TRAMADOL 50MG TABLET PO PRN (14:21)
[2018-11-28 16:00] VITALS: BP 128/77
[2018-11-28 17:48] VITALS: BP 128/77
== END 2018-11-28 18:55 | DRG 48 ==
LOC: ER 00:56 → 5WST 05:21 → EDBEDREQ 05:42 → ENRESERV 19:35
PROVIDERS: ADMIT Internal Medicine; ATTEND Internal Medicine
PROC: 4B09XSZ Measurement of Respiratory Pacemaker, External Approach (ICD-10-PCS; principal; 2018-11-19)
DX: G90.8 Other disorders of autonomic nervous system (principal); E66.01 Morbid (severe) obesity due to excess calories; F20.9 Schizophrenia, unspecified; I48.91 Unspecified atrial fibrillation; I49.5 Sick sinus syndrome; D72.829 Elevated white blood cell count, unspecified; E11.9 Type 2 diabetes mellitus without complications; G40.909 Epilepsy, unspecified, not intractable, without status epilepticus; I69.354 Hemiplegia and hemiparesis following cerebral infarction affecting left non-dominant side; E78.00 Pure hypercholesterolemia, unspecified; E78.5 Hyperlipidemia, unspecified; I10 Essential (primary) hypertension; E87.6 Hypokalemia; F31.9 Bipolar disorder, unspecified; G47.33 Obstructive sleep apnea (adult) (pediatric); J45.909 Unspecified asthma, uncomplicated; F14.10 Cocaine abuse, uncomplicated; F41.9 Anxiety disorder, unspecified; F17.210 Nicotine dependence, cigarettes, uncomplicated; H54.62 Unqualified visual loss, left eye, normal vision right eye; Z53.20 Procedure and treatment not carried out because of patient's decision for unspecified reasons; Z68.37 Body mass index [BMI] 37.0-37.9, adult; Z79.82 Long term (current) use of aspirin; Z79.899 Other long term (current) drug therapy; Z88.6 Allergy status to analgesic agent; Z91.19 Patient's noncompliance with other medical treatment and regimen; Z95.0 Presence of cardiac pacemaker; Z88.9 Allergy status to unspecified drugs, medicaments and biological substances; Z59.0 Homelessness; Z79.4 Long term (current) use of insulin
CPT/HCPCS: 36415; 71045; 80061; 80305; 82550; 82553; 83735; 83880; 84439; 84443; 84484; 85379; 93005; 93306; 93970; 94640; 96374; 96375; 96376; 97112; 97163; 97530; 99285; J0360; J1200; J1650; J2060; J2250; J2270; J2405; J7620

== ENCOUNTER 2019-01-25 10:48 | Inpatient (IN) | payer MEDICAID ==
[~2019-01-25] VITALS: Ht 175.3 cm; Wt 111.1 kg
[2019-01-25] MEDS ORDERED: MORPHINE SULFATE 4 MG/ML CPJ (NOT FOR IM USE) IV STA (11:14)
[2019-01-25] MEDS ORDERED: ONDANSETRON HCL 4MG/2ML INJ IV STA (11:14)
[2019-01-25] MEDS ORDERED: SODIUM CHLORIDE 0.9% 1,000 ML IV ONE (11:14)
[2019-01-25 11:37] LABS: BASOPHILS % 0.8 % (0.0-2.0); HEMATOCRIT. 36.2 % (42.0-52.0); HEMOGLOBIN. 11.9 g/dL (14.0-18.0); LYMPHOCYTES % 27.6 % (20.0-50.0); MEAN CORPUSCULAR HEMOGLOBIN 28.9 pg (28.0-32.0); MEAN CORPUSCULAR VOLUME 88.2 fL (80.0-94.0); NEUTROPHILS % 56.6 % (40.0-76.0); PLATELET 457 x1000/uL (130-400); RED BLOOD CELL COUNT 4.11 mill/uL (4.7-6.1); RED CELL DISTRIBUTION WIDTH 15.8 % (11.6-14.6)
[2019-01-25 11:43] LABS: CHLORIDE 109 mEq/L (98-107)
[2019-01-25 11:44] LABS: INR 1.1; PROTHROMBIN TIME 11.6 sec (9.6-11.0)
[2019-01-25] MEDS ORDERED: HYDROCODONE/ACETAMINOPHEN 5/325MG TABLET PO ONE (12:45)
[2019-01-25] MEDS ORDERED: CEFTRIAXONE 1 G PREMIX 50 ML IV ONE (14:00)
[2019-01-25] MEDS ORDERED: SULFAMETHOXAZOLE/TRIMETHOPRIM 800/160MG TABLET PO ONE (14:00)
[2019-01-25] MEDS ORDERED: LIDOCAINE HCL 1% 20ML VIAL (Pyxis) INJ ONE (14:25)
[2019-01-25] MEDS ORDERED: SODIUM BICARBONATE 4% (2.4MEQ) 5ML VIAL IV ONE (14:25)
[2019-01-25] MEDS ORDERED: ACETAMINOPHEN 325MG TABLET PO PRN (14:45)
[2019-01-25] MEDS ORDERED: MORPHINE SULFATE 4 MG/ML CPJ (NOT FOR IM USE) IV NR (15:45)
[2019-01-25] MEDS ORDERED: MORPHINE SULFATE 4 MG/ML CPJ (NOT FOR IM USE) IV ONE (15:45)
[2019-01-25 16:00] VITALS: BP 140/87
[2019-01-25 16:54] VITALS: BP 125/80
[2019-01-25 20:00] VITALS: BP 121/66
[2019-01-25] MEDS: QUETIAPINE FUMARATE 50MG TABLET PO SCH (20:30)
[2019-01-25] MEDS ORDERED: CLONIDINE 0.1MG TABLET PO PRN (21:15)
[2019-01-25] MEDS ORDERED: IPRATROPIUM/ALBUTEROL 0.5-3(2.5)MG/3ML NEB INH PRN (21:15)
[2019-01-25] MEDS ORDERED: TRAMADOL 50MG TABLET PO PRN ×2 (21:15→22:00)
[2019-01-25] MEDS ORDERED: ONDANSETRON HCL 4MG/2ML INJ IV PRN (21:15)
[2019-01-25] MEDS ORDERED: DOCUSATE SODIUM 100MG CAPSULE PO PRN (21:15)
[2019-01-25] MEDS ORDERED: LORAZEPAM 0.5MG TABLET PO PRN (21:15)
[2019-01-25] MEDS ORDERED: ZOLPIDEM TARTRATE 5MG TABLET PO PRN (22:00)
[2019-01-26] VITALS: BP 122/74
[2019-01-26 04:00] VITALS: BP 125/74
[2019-01-26 06:17] LABS: BASOPHILS % 0.9 % (0.0-2.0); EOSINOPHILS % 4.5 % (0.0-5.0); HEMOGLOBIN. 11.3 g/dL (14.0-18.0); LYMPHOCYTES % 27.2 % (20.0-50.0); MEAN CORPUSCULAR HEMOGLOBIN 29.1 pg (28.0-32.0); MEAN CORPUSCULAR VOLUME 87.6 fL (80.0-94.0); MEAN PLATELET VOLUME 7.2 fl (7.4-10.4); MONOCYTES % 10.8 % (2.0-8.0); NEUTROPHILS % 56.6 % (40.0-76.0); PLATELET 433 x1000/uL (130-400); RED BLOOD CELL COUNT 3.88 mill/uL (4.7-6.1)
[2019-01-26 06:44] LABS: CHLORIDE 106 mEq/L (98-107)
[2019-01-26] MEDS: MORPHINE SULFATE 4 MG/ML CPJ (NOT FOR IM USE) IV PRN ×4 (07:54→21:12)
[2019-01-26 08:00] VITALS: BP 120/75
[2019-01-26] MEDS: FLUOXETINE HCL 20MG CAPSULE PO SCH (08:54)
[2019-01-26] MEDS: ASPIRIN 81MG EC TABLET PO SCH (08:54)
[2019-01-26] MEDS: QUETIAPINE FUMARATE 50MG TABLET PO SCH (08:58)
[2019-01-26 12:00] VITALS: BP 105/63
[2019-01-26 16:00] VITALS: BP 113/51
[2019-01-26 20:00] VITALS: BP 132/75
[2019-01-27] VITALS: BP 103/61
[2019-01-27] MEDS: MORPHINE SULFATE 4 MG/ML CPJ (NOT FOR IM USE) IV PRN ×5 (00:37→20:47)
[2019-01-27 04:00] VITALS: BP 113/56
[2019-01-27 08:00] VITALS: BP 98/57
[2019-01-27] MEDS: FLUOXETINE HCL 20MG CAPSULE PO SCH (08:51)
[2019-01-27] MEDS: QUETIAPINE FUMARATE 50MG TABLET PO SCH (08:51)
[2019-01-27] MEDS: ASPIRIN 81MG EC TABLET PO SCH (08:51)
[2019-01-27] MEDS: LEVOFLOXACIN 500MG PREMIX 100 ML IV SCH (09:10)
[2019-01-27 12:00] VITALS: BP 115/74
[2019-01-27 15:09] LABS: BASOPHILS % 0.7 % (0.0-2.0); EOSINOPHILS % 4.7 % (0.0-5.0); HEMATOCRIT. 34.5 % (42.0-52.0); HEMOGLOBIN. 11.6 g/dL (14.0-18.0); LYMPHOCYTES % 23.8 % (20.0-50.0); MEAN CORPUSCULAR HEMOGLOBIN 29.3 pg (28.0-32.0); MEAN CORPUSCULAR VOLUME 87.2 fL (80.0-94.0); MEAN PLATELET VOLUME 7.2 fl (7.4-10.4); MONOCYTES % 9.9 % (2.0-8.0); NEUTROPHILS % 60.9 % (40.0-76.0); PLATELET 412 x1000/uL (130-400); RED BLOOD CELL COUNT 3.95 mill/uL (4.7-6.1)
[2019-01-27 15:14] LABS: CHLORIDE 108 mEq/L (98-107)
[2019-01-27 16:00] VITALS: BP 121/58
[2019-01-27 20:00] VITALS: BP 126/60
[2019-01-28] VITALS: BP 108/72
[2019-01-28] MEDS: MORPHINE SULFATE 4 MG/ML CPJ (NOT FOR IM USE) IV PRN ×5 (00:58→19:54)
[2019-01-28 04:00] VITALS: BP 135/75
[2019-01-28 07:26] LABS: CHLORIDE 108 mEq/L (98-107)
[2019-01-28 08:00] VITALS: BP 119/74
[2019-01-28 08:06] LABS: BASOPHILS % 0.4 % (0.0-2.0); EOSINOPHILS % 5.9 % (0.0-5.0); HEMOGLOBIN. 12.2 g/dL (14.0-18.0); LYMPHOCYTES % 26.7 % (20.0-50.0); MEAN CORPUSCULAR HEMOGLOBIN 28.8 pg (28.0-32.0); MEAN CORPUSCULAR VOLUME 87.3 fL (80.0-94.0); MEAN PLATELET VOLUME 7.2 fl (7.4-10.4); MONOCYTES % 10.4 % (2.0-8.0); NEUTROPHILS % 56.6 % (40.0-76.0); PLATELET 417 x1000/uL (130-400); RED BLOOD CELL COUNT 4.24 mill/uL (4.7-6.1); RED CELL DISTRIBUTION WIDTH 16.2 % (11.6-14.6)
[2019-01-28] MEDS: QUETIAPINE FUMARATE 50MG TABLET PO SCH (08:26)
[2019-01-28] MEDS: FLUOXETINE HCL 20MG CAPSULE PO SCH (08:26)
[2019-01-28] MEDS: ASPIRIN 81MG EC TABLET PO SCH (08:26)
[2019-01-28] MEDS: LEVOFLOXACIN 500MG PREMIX 100 ML IV SCH (08:27)
[2019-01-28 12:00] VITALS: BP 100/37
[2019-01-28 16:00] VITALS: BP 129/80
[2019-01-28 20:00] VITALS: BP 105/68
[2019-01-29] VITALS: BP 121/73
[2019-01-29] MEDS: MORPHINE SULFATE 4 MG/ML CPJ (NOT FOR IM USE) IV PRN ×4 (02:04→21:12)
[2019-01-29 04:00] VITALS: BP 118/78
[2019-01-29 06:05] LABS: BASOPHILS % 0.9 % (0.0-2.0); HEMATOCRIT. 36.3 % (42.0-52.0); LYMPHOCYTES % 24.8 % (20.0-50.0); MEAN CORPUSCULAR HEMOGLOBIN 29.1 pg (28.0-32.0); MEAN CORPUSCULAR VOLUME 87.9 fL (80.0-94.0); MEAN PLATELET VOLUME 7.4 fl (7.4-10.4); MONOCYTES % 10.2 % (2.0-8.0); NEUTROPHILS % 58.1 % (40.0-76.0); PLATELET 353 x1000/uL (130-400); RED BLOOD CELL COUNT 4.13 mill/uL (4.7-6.1); RED CELL DISTRIBUTION WIDTH 15.5 % (11.6-14.6)
[2019-01-29 07:23] LABS: CHLORIDE 104 mEq/L (98-107)
[2019-01-29] MEDS: FLUOXETINE HCL 20MG CAPSULE PO SCH (08:00)
[2019-01-29] MEDS: ASPIRIN 81MG EC TABLET PO SCH (08:00)
[2019-01-29] MEDS: QUETIAPINE FUMARATE 50MG TABLET PO SCH (08:00)
[2019-01-29] MEDS: LEVOFLOXACIN 500MG PREMIX 100 ML IV SCH (08:01)
[2019-01-29 08:25] VITALS: BP 114/71
[2019-01-29 11:40] VITALS: BP 98/57
[2019-01-29 16:04] VITALS: BP 113/72
[2019-01-29 20:00] VITALS: BP 132/67
[2019-01-30] VITALS: BP 112/71
[2019-01-30] MEDS: MORPHINE SULFATE 4 MG/ML CPJ (NOT FOR IM USE) IV PRN ×4 (02:43→20:03)
[2019-01-30 04:00] VITALS: BP 116/73
[2019-01-30 07:56] VITALS: BP 132/78
[2019-01-30] MEDS: ASPIRIN 81MG EC TABLET PO SCH (08:13)
[2019-01-30] MEDS: QUETIAPINE FUMARATE 50MG TABLET PO SCH (08:13)
[2019-01-30] MEDS: FLUOXETINE HCL 20MG CAPSULE PO SCH (08:13)
[2019-01-30] MEDS: LEVOFLOXACIN 500MG TABLET PO SCH (11:08)
[2019-01-30 11:50] VITALS: BP 105/75
[2019-01-30 15:47] VITALS: BP 107/70
[2019-01-30 20:00] VITALS: BP 104/72
[2019-01-31] VITALS: BP 108/53
[2019-01-31] MEDS: MORPHINE SULFATE 4 MG/ML CPJ (NOT FOR IM USE) IV PRN ×4 (00:35→14:45)
[2019-01-31 04:00] VITALS: BP 134/71
[2019-01-31 08:00] VITALS: BP 120/71
[2019-01-31] MEDS ORDERED: TRAMADOL 50MG TABLET PO PRN (10:15)
[2019-01-31 10:29] LABS: BASOPHILS % 1.1 % (0.0-2.0); HEMOGLOBIN. 13.2 g/dL (14.0-18.0); LYMPHOCYTES % 21.1 % (20.0-50.0); MEAN CORPUSCULAR VOLUME 88.1 fL (80.0-94.0); MEAN PLATELET VOLUME 7.5 fl (7.4-10.4); MONOCYTES % 8.6 % (2.0-8.0); NEUTROPHILS % 63.2 % (40.0-76.0); PLATELET 414 x1000/uL (130-400); RED BLOOD CELL COUNT 4.54 mill/uL (4.7-6.1); RED CELL DISTRIBUTION WIDTH 15.9 % (11.6-14.6)
[2019-01-31] MEDS: LEVOFLOXACIN 500MG TABLET PO SCH (10:35)
[2019-01-31] MEDS: QUETIAPINE FUMARATE 50MG TABLET PO SCH (10:36)
[2019-01-31] MEDS: FLUOXETINE HCL 20MG CAPSULE PO SCH (10:36)
[2019-01-31] MEDS: ASPIRIN 81MG EC TABLET PO SCH (10:36)
[2019-01-31 10:41] LABS: CHLORIDE 105 mEq/L (98-107)
[2019-01-31 11:56] VITALS: BP 110/70
[2019-01-31 12:00] VITALS: BP 106/67
[2019-01-31 16:00] VITALS: BP 115/74
[2019-01-31] MEDS ORDERED: ATORVASTATIN CALCIUM 20MG TABLET PO SCH (21:00)
== END 2019-01-31 19:10 | DRG 383 ==
LOC: ER 10:48 → 6EST 14:04 → ENRESERV 14:20
PROVIDERS: ADMIT Internal Medicine; ATTEND Internal Medicine
PROC: 02HV33Z Insertion of Infusion Device into Superior Vena Cava, Percutaneous Approach (ICD-10-PCS; principal; 2019-01-25)
PROC: B5181ZA Fluoroscopy of Superior Vena Cava using Low Osmolar Contrast, Guidance (ICD-10-PCS; 2019-01-25)
PROC: B548ZZA Ultrasonography of Superior Vena Cava, Guidance (ICD-10-PCS; 2019-01-25)
DX: L05.01 Pilonidal cyst with abscess (principal); F20.9 Schizophrenia, unspecified; I11.9 Hypertensive heart disease without heart failure; I69.354 Hemiplegia and hemiparesis following cerebral infarction affecting left non-dominant side; E66.09 Other obesity due to excess calories; G47.33 Obstructive sleep apnea (adult) (pediatric); D64.9 Anemia, unspecified; F32.9 Major depressive disorder, single episode, unspecified; F41.9 Anxiety disorder, unspecified; E87.6 Hypokalemia; F19.10 Other psychoactive substance abuse, uncomplicated; D47.3 Essential (hemorrhagic) thrombocythemia; R74.8 Abnormal levels of other serum enzymes; I25.10 Atherosclerotic heart disease of native coronary artery without angina pectoris; J45.909 Unspecified asthma, uncomplicated; Z68.36 Body mass index [BMI] 36.0-36.9, adult; Z95.0 Presence of cardiac pacemaker; Z59.0 Homelessness; Z91.19 Patient's noncompliance with other medical treatment and regimen; Z79.82 Long term (current) use of aspirin; Z79.899 Other long term (current) drug therapy; Z88.8 Allergy status to other drugs, medicaments and biological substances
CPT/HCPCS: 36415; 36569; 36573; 80048; 84134; 84484; 93005; 96365; 96375; 97116; 97162; 97530; 99285; C1725; J1956; J2270; J3490; J7030

== ENCOUNTER 2019-02-18 11:53 | Inpatient (IN) | payer MEDICAID ==
[~2019-02-18] VITALS: Ht 175.3 cm; Wt 145.6 kg
[2019-02-18] MEDS ORDERED: ONDANSETRON HCL 4MG/2ML INJ IV STA (12:46)
[2019-02-18] MEDS ORDERED: MORPHINE SULFATE 4 MG/ML CPJ (NOT FOR IM USE) IV STA (12:46)
[2019-02-18 12:57] LABS: BASOPHILS % 0.8 % (0.0-2.0); CHLORIDE 109 mEq/L (98-107); EOSINOPHILS % 3.8 % (0.0-5.0); HEMATOCRIT. 40.3 % (42.0-52.0); HEMOGLOBIN. 13.4 g/dL (14.0-18.0); LYMPHOCYTES % 21.1 % (20.0-50.0); MEAN CORPUSCULAR HEMOGLOBIN 29.3 pg (28.0-32.0); MEAN CORPUSCULAR VOLUME 88.2 fL (80.0-94.0); MEAN PLATELET VOLUME 7.2 fl (7.4-10.4); MONOCYTES % 10.4 % (2.0-8.0); NEUTROPHILS % 63.9 % (40.0-76.0); PLATELET 524 x1000/uL (130-400); RED BLOOD CELL COUNT 4.57 mill/uL (4.7-6.1); RED CELL DISTRIBUTION WIDTH 15.8 % (11.6-14.6)
[2019-02-18 12:58] LABS: INR 1.1; PROTHROMBIN TIME 11.2 sec (9.6-11.0)
[2019-02-18 13:02] LABS: ETHANOL BLOOD < 10 mg/dL
[2019-02-18 13:05] LABS: LDL CHOLESTEROL 83 mg/dL (5-100)
[2019-02-18] MEDS ORDERED: ASPIRIN 325MG TABLET PO ONE (13:15)
[2019-02-18] MEDS ORDERED: FUROSEMIDE 40MG/4ML VIAL IVP NR (14:45)
[2019-02-18] MEDS ORDERED: ACETAMINOPHEN 325MG TABLET PO PRN (14:45)
[2019-02-18] MEDS ORDERED: CLONIDINE 0.1MG TABLET PO PRN (14:45)
[2019-02-18 14:56] LABS: CLARITY URINE CLEAR (CLEAR); COLOR URINE YELLOW (YELLOW); KETONES URINE TRACE (NEGATIVE); LEUKOCYTE ESTERASE URINE NEGATIVE (NEGATIVE); NITRITE URINE NEGATIVE (NEGATIVE); OCCULT BLOOD URINE NEGATIVE (NEGATIVE); PROTEIN URINE NEGATIVE (NEGATIVE); SPECIFIC GRAVITY URINE 1.022 (1.005-1.030); UROBILINOGEN URINE 0.2 E.U./dL (0.2-1.0)
[2019-02-18 15:11] LABS: *BENZODIAZEPINES SCREEN URINE NEGATIVE (NEGATIVE)
[2019-02-18 15:12] LABS: *AMPHETAMINES SCREEN URINE NEGATIVE (NEGATIVE); *COCAINE SCREEN URINE NEGATIVE (NEGATIVE); CANNABINOID URINE SCREEN NEGATIVE (NEGATIVE); METHADONE URINE SCREEN NEGATIVE (NEGATIVE); OPIATES URINE SCREEN PRESUMTIVE POSITIVE (NEGATIVE); PHENCYCLIDINE URINE SCREEN NEGATIVE (NEGATIVE)
[2019-02-18 15:13] LABS: *BARBITURATES SCREEN URINE NEGATIVE (NEGATIVE)
[2019-02-18] MEDS: MORPHINE SULFATE 4 MG/ML CPJ (NOT FOR IM USE) IV PRN ×2 (15:25→20:35)
[2019-02-18 18:38] VITALS: BP 115/72
[2019-02-18 19:00] VITALS: BP 120/60
[2019-02-18 20:02] VITALS: BP 121/61
[2019-02-18] MEDS: ONDANSETRON HCL 4MG/2ML INJ IV PRN (20:35)
[2019-02-18] MEDS: ATORVASTATIN CALCIUM 40MG TABLET PO SCH (20:36)
[2019-02-18] MEDS: ENOXAPARIN 40MG/0.4ML SYR SUBCUT SCH (21:00)
[2019-02-18] MEDS: QUETIAPINE FUMARATE 50MG TABLET PO SCH (22:55)
[2019-02-19 00:08] VITALS: BP 123/54
[2019-02-19] MEDS: MORPHINE SULFATE 4 MG/ML CPJ (NOT FOR IM USE) IV PRN ×5 (00:25→20:17)
[2019-02-19 04:00] VITALS: BP 111/45
[2019-02-19] MEDS: ONDANSETRON HCL 4MG/2ML INJ IV PRN (04:35)
[2019-02-19 07:49] LABS: BASOPHILS % 0.4 % (0.0-2.0); EOSINOPHILS % 4.1 % (0.0-5.0); HEMATOCRIT. 36.2 % (42.0-52.0); HEMOGLOBIN. 11.8 g/dL (14.0-18.0); MEAN CORPUSCULAR HEMOGLOBIN 28.6 pg (28.0-32.0); MEAN PLATELET VOLUME 7.2 fl (7.4-10.4); MONOCYTES % 8.5 % (2.0-8.0); PLATELET 434 x1000/uL (130-400); RED BLOOD CELL COUNT 4.12 mill/uL (4.7-6.1); RED CELL DISTRIBUTION WIDTH 15.9 % (11.6-14.6)
[2019-02-19 07:55] LABS: CHLORIDE 105 mEq/L (98-107)
[2019-02-19] MEDS: ENOXAPARIN 40MG/0.4ML SYR SUBCUT SCH ×2 (09:00→20:17)
[2019-02-19 09:17] LABS: T4 FREE 0.92 ng/dL (0.76-1.46)
[2019-02-19] MEDS: CLOPIDOGREL 75MG TABLET PO SCH (09:24)
[2019-02-19 09:40] LABS: FOLIC ACID (FOLATE) SERUM 12.2 ng/mL (>5.38)
[2019-02-19 12:00] VITALS: BP 95/45
[2019-02-19] MEDS ORDERED: MORPHINE SULFATE 4 MG/ML CPJ (NOT FOR IM USE) IV NR (12:45)
[2019-02-19] MEDS: DIPHENHYDRAMINE 50MG/ML VIAL IV PRN (13:08)
[2019-02-19 16:00] VITALS: BP 107/60
[2019-02-19 20:00] VITALS: BP 104/51
[2019-02-19] MEDS: ATORVASTATIN CALCIUM 40MG TABLET PO SCH (20:17)
[2019-02-19] MEDS: QUETIAPINE FUMARATE 50MG TABLET PO SCH (21:13)
[2019-02-19] MEDS: HYDROCODONE/ACETAMINOPHEN 5/325MG TABLET PO PRN (22:13)
[2019-02-20] VITALS (9 sets, daily range): BP systolic 87–115; BP diastolic 35–72
[2019-02-20] MEDS: MORPHINE SULFATE 4 MG/ML CPJ (NOT FOR IM USE) IV PRN ×6 (02:04→23:22)
[2019-02-20] MEDS: HYDROCODONE/ACETAMINOPHEN 5/325MG TABLET PO PRN (05:00)
[2019-02-20] MEDS: CLOPIDOGREL 75MG TABLET PO SCH (08:48)
[2019-02-20] MEDS: ENOXAPARIN 40MG/0.4ML SYR SUBCUT SCH ×3 (08:49→20:36)
[2019-02-20] MEDS ORDERED: IOHEXOL-350 100 ML BOTTLE ONE (11:45)
[2019-02-20] MEDS ORDERED: DIPHENHYDRAMINE 50MG/ML VIAL IV PRN (11:45)
[2019-02-20] MEDS: DIPHENHYDRAMINE 50MG/ML VIAL IV PRN (12:00)
[2019-02-20] MEDS ORDERED: SUMATRIPTAN SUCCINATE 6MG/0.5ML VIAL SUBCUT NR (14:00)
[2019-02-20] MEDS: QUETIAPINE FUMARATE 50MG TABLET PO SCH (20:36)
[2019-02-20] MEDS: ATORVASTATIN CALCIUM 40MG TABLET PO SCH (20:36)
[2019-02-21] VITALS: BP 118/61
[2019-02-21] MEDS: MORPHINE SULFATE 4 MG/ML CPJ (NOT FOR IM USE) IV PRN ×3 (03:47→22:32)
[2019-02-21 04:00] VITALS: BP 114/49
[2019-02-21] MEDS: METHYLPREDNISOLONE SOD SUCC 125 MG/2 ML VIAL IV SCH ×3 (05:50→21:35)
[2019-02-21 08:00] VITALS: BP 130/70
[2019-02-21] MEDS: CLOPIDOGREL 75MG TABLET PO SCH (08:29)
[2019-02-21] MEDS: ENOXAPARIN 40MG/0.4ML SYR SUBCUT SCH ×2 (08:30→20:50)
[2019-02-21 12:00] VITALS: BP 108/64
[2019-02-21 16:00] VITALS: BP 177/79
[2019-02-21 20:00] VITALS: BP 121/50
[2019-02-21] MEDS: ATORVASTATIN CALCIUM 40MG TABLET PO SCH (20:50)
[2019-02-21] MEDS: QUETIAPINE FUMARATE 50MG TABLET PO SCH (20:50)
[2019-02-22] MEDS: MORPHINE SULFATE 4 MG/ML CPJ (NOT FOR IM USE) IV PRN ×6 (02:49→23:11)
[2019-02-22] MEDS: METHYLPREDNISOLONE SOD SUCC 125 MG/2 ML VIAL IV SCH ×3 (06:25→21:01)
[2019-02-22 08:00] VITALS: BP 98/65
[2019-02-22] MEDS: CLOPIDOGREL 75MG TABLET PO SCH (08:56)
[2019-02-22] MEDS: ENOXAPARIN 40MG/0.4ML SYR SUBCUT SCH ×2 (09:39→21:00)
[2019-02-22 10:11] LABS: MEAN CORPUSCULAR HEMOGLOBIN 28.8 pg (28.0-32.0); MEAN CORPUSCULAR VOLUME 88.6 fL (80.0-94.0); MEAN PLATELET VOLUME 7.5 fl (7.4-10.4); PLATELET 583 x1000/uL (130-400); RED BLOOD CELL COUNT 4.52 mill/uL (4.7-6.1); RED CELL DISTRIBUTION WIDTH 15.3 % (11.6-14.6)
[2019-02-22 10:23] LABS: CHLORIDE 104 mEq/L (98-107)
[2019-02-22 12:00] VITALS: BP 109/54
[2019-02-22 12:53] LABS: PLATELET ESTIMATE INCREASED
[2019-02-22 16:00] VITALS: BP 129/68
[2019-02-22 20:09] VITALS: BP 128/84
[2019-02-22] MEDS: ATORVASTATIN CALCIUM 40MG TABLET PO SCH (20:59)
[2019-02-22] MEDS: QUETIAPINE FUMARATE 50MG TABLET PO SCH (20:59)
[2019-02-23] VITALS (7 sets, daily range): BP systolic 101–138; BP diastolic 61–81
[2019-02-23] MEDS: MORPHINE SULFATE 4 MG/ML CPJ (NOT FOR IM USE) IV PRN ×4 (03:15→18:23)
[2019-02-23] MEDS ORDERED: METHYLPREDNISOLONE SOD SUCC 125 MG/2 ML VIAL IV SCH (09:00)
[2019-02-23] MEDS: ENOXAPARIN 40MG/0.4ML SYR SUBCUT SCH ×3 (09:00→21:00)
[2019-02-23] MEDS: CLOPIDOGREL 75MG TABLET PO SCH (09:28)
[2019-02-23] MEDS: DIAZEPAM 5 MG TABLET PO SCH ×2 (11:16→17:42)
[2019-02-23] MEDS: METHYLPREDNISOLONE SOD SUCC 40 MG/ML VIAL IV SCH (17:42)
[2019-02-23] MEDS: QUETIAPINE FUMARATE 50MG TABLET PO SCH (21:46)
[2019-02-23] MEDS: ATORVASTATIN CALCIUM 40MG TABLET PO SCH (21:46)
[2019-02-24 00:06] VITALS: BP 127/72
[2019-02-24] MEDS: MORPHINE SULFATE 4 MG/ML CPJ (NOT FOR IM USE) IV PRN ×5 (00:45→21:27)
[2019-02-24 08:00] VITALS: BP 120/73
[2019-02-24] MEDS: CLOPIDOGREL 75MG TABLET PO SCH (09:04)
[2019-02-24] MEDS: ENOXAPARIN 40MG/0.4ML SYR SUBCUT SCH ×2 (09:04→20:50)
[2019-02-24] MEDS: DIAZEPAM 5 MG TABLET PO SCH ×2 (09:04→15:52)
[2019-02-24] MEDS: METHYLPREDNISOLONE SOD SUCC 40 MG/ML VIAL IV SCH (09:04)
[2019-02-24] MEDS: LACTULOSE 20G/30ML UDC PO SCH ×3 (10:33→15:51)
[2019-02-24 12:00] VITALS: BP 154/84
[2019-02-24 13:50] VITALS: BP 143/69
[2019-02-24] MEDS: DOCUSATE SODIUM 100MG CAPSULE PO SCH (15:52)
[2019-02-24 16:00] VITALS: BP 119/69
[2019-02-24] MEDS ORDERED: MORPHINE SULFATE 2 MG/ML CPJ (NOT FOR IM USE) IV PRN (16:15)
[2019-02-24 20:00] VITALS: BP 144/81
[2019-02-24] MEDS: QUETIAPINE FUMARATE 50MG TABLET PO SCH (20:46)
[2019-02-24] MEDS: ATORVASTATIN CALCIUM 40MG TABLET PO SCH (20:46)
[2019-02-24] MEDS ORDERED: POLYETHYLENE GLYCOL 3350 (17GM) 1 DOSE PACK PO SCH (21:00)
[2019-02-25] VITALS: BP 110/66
[2019-02-25] MEDS: MORPHINE SULFATE 4 MG/ML CPJ (NOT FOR IM USE) IV PRN ×4 (02:51→17:33)
[2019-02-25 04:00] VITALS: BP 118/65
[2019-02-25 08:00] VITALS: BP 109/67
[2019-02-25] MEDS: ENOXAPARIN 40MG/0.4ML SYR SUBCUT SCH (09:00)
[2019-02-25] MEDS: CLOPIDOGREL 75MG TABLET PO SCH (09:15)
[2019-02-25] MEDS: DOCUSATE SODIUM 100MG CAPSULE PO SCH ×2 (09:16→16:54)
[2019-02-25] MEDS: DIAZEPAM 5 MG TABLET PO SCH ×2 (09:16→16:54)
[2019-02-25 12:00] VITALS: BP 142/70
[2019-02-25 12:29] LABS: CHLORIDE 109 mEq/L (98-107)
[2019-02-25 12:36] LABS: PHOSPHORUS 2.8 mg/dL (2.5-4.9)
[2019-02-25 12:46] LABS: BASOPHILS % 0.2 % (0.0-2.0); EOSINOPHILS % 0.9 % (0.0-5.0); HEMATOCRIT. 41.6 % (42.0-52.0); HEMOGLOBIN. 13.8 g/dL (14.0-18.0); LYMPHOCYTES % 24.2 % (20.0-50.0); MEAN CORPUSCULAR HEMOGLOBIN 29.3 pg (28.0-32.0); MEAN CORPUSCULAR VOLUME 88.7 fL (80.0-94.0); MEAN PLATELET VOLUME 7.6 fl (7.4-10.4); MONOCYTES % 11.1 % (2.0-8.0); NEUTROPHILS % 63.6 % (40.0-76.0); PLATELET 484 x1000/uL (130-400); RED BLOOD CELL COUNT 4.69 mill/uL (4.7-6.1); RED CELL DISTRIBUTION WIDTH 15.6 % (11.6-14.6)
[2019-02-25 16:00] VITALS: BP 101/74
[2019-02-25 17:42] VITALS: BP 107/74
== END 2019-02-25 18:50 | DRG 45 ==
LOC: ER 12:17 → 6WST 13:56 → EDBEDREQSVC 14:05 → EDBEDREQ 14:05 → ENRESERV 15:41 → 6EST 02-24 13:32
PROVIDERS: ADMIT Internal Medicine Nephrology; ATTEND Internal Medicine Nephrology
DX: I63.9 Cerebral infarction, unspecified (principal); E87.8 Other disorders of electrolyte and fluid balance, not elsewhere classified; E44.1 Mild protein-calorie malnutrition; M48.02 Spinal stenosis, cervical region; E66.01 Morbid (severe) obesity due to excess calories; I49.5 Sick sinus syndrome; I65.21 Occlusion and stenosis of right carotid artery; I11.0 Hypertensive heart disease with heart failure; I50.9 Heart failure, unspecified; E78.00 Pure hypercholesterolemia, unspecified; F31.9 Bipolar disorder, unspecified; F41.9 Anxiety disorder, unspecified; G40.909 Epilepsy, unspecified, not intractable, without status epilepticus; G47.33 Obstructive sleep apnea (adult) (pediatric); I25.10 Atherosclerotic heart disease of native coronary artery without angina pectoris; I69.354 Hemiplegia and hemiparesis following cerebral infarction affecting left non-dominant side; Z95.0 Presence of cardiac pacemaker; M48.061 Spinal stenosis, lumbar region without neurogenic claudication; M48.07 Spinal stenosis, lumbosacral region; J44.1 Chronic obstructive pulmonary disease with (acute) exacerbation; M47.816 Spondylosis without myelopathy or radiculopathy, lumbar region; L05.91 Pilonidal cyst without abscess; M51.36 Other intervertebral disc degeneration, lumbar region; Z82.49 Family history of ischemic heart disease and other diseases of the circulatory system; Z88.5 Allergy status to narcotic agent; Z68.42 Body mass index [BMI] 45.0-49.9, adult
CPT/HCPCS: 36415; 70498; 71045; 72131; 80048; 80061; 80305; 80320; 82465; 82607; 82746; 82962; 83036; 83721; 83735; 84100; 84134; 84439; 84443; 84481; 84484; 92610; 93005; 93880; 96365; 96375; 97116; 97162; 97166; 97530; 99285; J1200; J1650; J1940; J2270; J2405; J2920; J2930; J3030; Q9967; G0480

== ENCOUNTER 2019-03-16 05:51 | Inpatient (IN) | payer MEDICAID ==
[~2019-03-16] VITALS: Ht 175.3 cm; Wt 148.8 kg
[2019-03-16] MEDS ORDERED: ONDANSETRON HCL 4MG/2ML INJ IV STA (06:46)
[2019-03-16] MEDS ORDERED: MORPHINE SULFATE 4 MG/ML CPJ (NOT FOR IM USE) IV STA (06:46)
[2019-03-16] MEDS ORDERED: ASPIRIN 81MG TABLET PO ONE (07:00)
[2019-03-16] MEDS ORDERED: NITROGLYCERIN OINT 1GM/INCH UDPKT TD ONE (07:00)
[2019-03-16 07:28] LABS: BASOPHILS % 0.3 % (0.0-2.0); CHLORIDE 106 mEq/L (98-107); EOSINOPHILS % 3.5 % (0.0-5.0); HEMATOCRIT. 37.4 % (42.0-52.0); HEMOGLOBIN. 12.4 g/dL (14.0-18.0); LYMPHOCYTES % 16.3 % (20.0-50.0); MEAN CORPUSCULAR HEMOGLOBIN 29.6 pg (28.0-32.0); MEAN CORPUSCULAR VOLUME 88.9 fL (80.0-94.0); MEAN PLATELET VOLUME 7.5 fl (7.4-10.4); MONOCYTES % 11.3 % (2.0-8.0); NEUTROPHILS % 68.6 % (40.0-76.0); PLATELET 448 x1000/uL (130-400); RED CELL DISTRIBUTION WIDTH 15.5 % (11.6-14.6)
[2019-03-16 08:17] LABS: *AMPHETAMINES SCREEN URINE NEGATIVE (NEGATIVE); *BARBITURATES SCREEN URINE NEGATIVE (NEGATIVE)
[2019-03-16 08:18] LABS: *BENZODIAZEPINES SCREEN URINE PRESUMTIVE POSITIVE (NEGATIVE); *COCAINE SCREEN URINE PRESUMTIVE POSITIVE (NEGATIVE); METHADONE URINE SCREEN NEGATIVE (NEGATIVE); OPIATES URINE SCREEN PRESUMTIVE POSITIVE (NEGATIVE); PHENCYCLIDINE URINE SCREEN NEGATIVE (NEGATIVE)
[2019-03-16 08:25] LABS: CANNABINOID URINE SCREEN PRESUMTIVE POSITIVE (NEGATIVE)
[2019-03-16 08:56] LABS: INR 1.1; PARTIAL THROMBOPLASTIN TIME 35.8 sec (23.4-31.0); PROTHROMBIN TIME 11.8 sec (9.6-11.0)
[2019-03-16] MEDS ORDERED: ACETAMINOPHEN 325MG TABLET PO PRN (09:30)
[2019-03-16] MEDS ORDERED: ONDANSETRON HCL 4MG/2ML INJ IV PRN (09:30)
[2019-03-16] MEDS: MORPHINE SULFATE 2 MG/ML CPJ (NOT FOR IM USE) IV PRN ×4 (09:50→22:58)
[2019-03-16 11:00] VITALS: BP 114/76
[2019-03-16 11:40] VITALS: BP 114/76
[2019-03-16 12:00] VITALS: BP 114/76
[2019-03-16] MEDS: METOPROLOL TARTRATE 25MG TABLET PO SCH ×3 (13:00→21:21)
[2019-03-16 16:00] VITALS: BP 98/49
[2019-03-16 16:16] VITALS: BP 98/49
[2019-03-16] MEDS: METFORMIN HCL 500MG TABLET PO SCH (16:44)
[2019-03-16 20:00] VITALS: BP 133/82
[2019-03-16] MEDS ORDERED: ZOLPIDEM TARTRATE 5MG TABLET PO PRN (21:00)
[2019-03-17] VITALS: BP 111/51
[2019-03-17] MEDS ORDERED: IPRATROPIUM/ALBUTEROL 0.5-3(2.5)MG/3ML NEB HHN PRN
[2019-03-17 04:00] VITALS: BP 107/68
[2019-03-17] MEDS: METFORMIN HCL 500MG TABLET PO SCH ×2 (07:15→17:15)
[2019-03-17 08:00] VITALS: BP 112/36
[2019-03-17] MEDS: MORPHINE SULFATE 2 MG/ML CPJ (NOT FOR IM USE) IV PRN ×3 (08:38→20:42)
[2019-03-17] MEDS: FLUOXETINE HCL 20MG CAPSULE PO SCH ×2 (08:44→10:48)
[2019-03-17] MEDS: ASPIRIN 81MG TABLET PO SCH ×2 (08:44→10:47)
[2019-03-17] MEDS: METOPROLOL TARTRATE 25MG TABLET PO SCH ×2 (08:44→20:41)
[2019-03-17] MEDS: ALPRAZOLAM 0.5 MG TABLET PO SCH ×3 (08:44→21:00)
[2019-03-17] MEDS: QUETIAPINE FUMARATE 50MG TABLET PO SCH (08:44)
[2019-03-17] MEDS: ENOXAPARIN 30MG/0.3ML SYR SUBCUT SCH ×2 (08:45→21:00)
[2019-03-17] MEDS: GUAIFENESIN-DM 200MG-20MG/10ML UDC PO PRN ×2 (10:41→17:40)
[2019-03-17 12:00] VITALS: BP 142/82
[2019-03-17 16:00] VITALS: BP_SYST 126; BP_SYST 138; BP_DIAS 63; BP_DIAS 85
[2019-03-17 20:00] VITALS: BP 122/60
[2019-03-17 22:01] LABS: BASOPHILS % 0.4 % (0.0-2.0); EOSINOPHILS % 4.7 % (0.0-5.0); HEMATOCRIT. 33.9 % (42.0-52.0); HEMOGLOBIN. 11.5 g/dL (14.0-18.0); LYMPHOCYTES % 13.5 % (20.0-50.0); MEAN CORPUSCULAR HEMOGLOBIN 30.2 pg (28.0-32.0); MEAN CORPUSCULAR VOLUME 89.5 fL (80.0-94.0); MEAN PLATELET VOLUME 7.8 fl (7.4-10.4); MONOCYTES % 8.9 % (2.0-8.0); NEUTROPHILS % 72.5 % (40.0-76.0); PLATELET 419 x1000/uL (130-400); RED BLOOD CELL COUNT 3.79 mill/uL (4.7-6.1); RED CELL DISTRIBUTION WIDTH 15.5 % (11.6-14.6)
[2019-03-17 22:02] LABS: CHLORIDE 110 mEq/L (98-107)
[2019-03-18] VITALS (7 sets, daily range): BP systolic 102–140; BP diastolic 50–79
[2019-03-18] MEDS: MORPHINE SULFATE 2 MG/ML CPJ (NOT FOR IM USE) IV PRN ×3 (02:50→19:09)
[2019-03-18] MEDS: GUAIFENESIN-DM 200MG-20MG/10ML UDC PO PRN ×2 (06:17→08:34)
[2019-03-18] MEDS: METFORMIN HCL 500MG TABLET PO SCH ×2 (07:15→17:15)
[2019-03-18] MEDS: ASPIRIN 81MG TABLET PO SCH (08:39)
[2019-03-18] MEDS: FLUOXETINE HCL 20MG CAPSULE PO SCH (08:40)
[2019-03-18] MEDS: METOPROLOL TARTRATE 25MG TABLET PO SCH ×2 (08:40→20:32)
[2019-03-18] MEDS: ENOXAPARIN 30MG/0.3ML SYR SUBCUT SCH (08:41)
[2019-03-18] MEDS: ALPRAZOLAM 0.5 MG TABLET PO SCH ×2 (09:00→20:32)
[2019-03-18] MEDS: QUETIAPINE FUMARATE 50MG TABLET PO SCH (09:00)
[2019-03-18] MEDS ORDERED: BUPIVACAINE HCL/PF 0.5% (5MG/ML) 10ML ONE (13:30)
[2019-03-18] MEDS ORDERED: LIDOCAINE HCL 1% 20ML VIAL (Pyxis) INJ ONE (13:30)
[2019-03-18] MEDS: ENOXAPARIN 40MG/0.4ML SYR SUBCUT SCH (20:49)
[2019-03-19] VITALS: BP 124/73
[2019-03-19] MEDS: MORPHINE SULFATE 2 MG/ML CPJ (NOT FOR IM USE) IV PRN ×3 (01:13→20:31)
[2019-03-19] MEDS: GUAIFENESIN-DM 200MG-20MG/10ML UDC PO PRN (02:43)
[2019-03-19 04:00] VITALS: BP 113/63
[2019-03-19 06:52] LABS: BASOPHILS % 0.4 % (0.0-2.0); EOSINOPHILS % 8.3 % (0.0-5.0); HEMATOCRIT. 35.4 % (42.0-52.0); HEMOGLOBIN. 11.6 g/dL (14.0-18.0); LYMPHOCYTES % 22.7 % (20.0-50.0); MEAN CORPUSCULAR HEMOGLOBIN 29.4 pg (28.0-32.0); MEAN CORPUSCULAR VOLUME 89.8 fL (80.0-94.0); MEAN PLATELET VOLUME 7.7 fl (7.4-10.4); MONOCYTES % 11.9 % (2.0-8.0); NEUTROPHILS % 56.7 % (40.0-76.0); PLATELET 433 x1000/uL (130-400); RED BLOOD CELL COUNT 3.94 mill/uL (4.7-6.1); RED CELL DISTRIBUTION WIDTH 15.5 % (11.6-14.6)
[2019-03-19 06:54] LABS: CHLORIDE 110 mEq/L (98-107)
[2019-03-19] MEDS: METFORMIN HCL 500MG TABLET PO SCH ×2 (07:15→17:15)
[2019-03-19 08:00] VITALS: BP 110/59
[2019-03-19] MEDS: ENOXAPARIN 40MG/0.4ML SYR SUBCUT SCH ×2 (09:00→20:32)
[2019-03-19] MEDS: QUETIAPINE FUMARATE 50MG TABLET PO SCH ×2 (09:00→09:24)
[2019-03-19] MEDS: ASPIRIN 81MG TABLET PO SCH (09:24)
[2019-03-19] MEDS: METOPROLOL TARTRATE 25MG TABLET PO SCH ×2 (09:24→22:09)
[2019-03-19] MEDS: ALPRAZOLAM 0.5 MG TABLET PO SCH ×2 (09:24→21:00)
[2019-03-19] MEDS: FLUOXETINE HCL 20MG CAPSULE PO SCH (09:24)
[2019-03-19 12:00] VITALS: BP 113/69
[2019-03-19] MEDS ORDERED: LIDOCAINE HCL/PF 1% 2ML VIAL ONE (13:42)
[2019-03-19] MEDS ORDERED: METHYLPREDNISOLONE SOD SUCC 125 MG/2 ML VIAL IV NR (14:00)
[2019-03-19] MEDS ORDERED: IPRATROPIUM/ALBUTEROL 0.5-3(2.5)MG/3ML NEB HHN PRN (14:00)
[2019-03-19 14:06] LABS: BG BASE EXCESS 0.2 mmol/L (-2.0-2.0); BG CARBOXYHEMOGLOBIN 0.6 % (0.5-1.5); BG DEOXYHEMOGLOBIN 5.2 % (0.0-5.0); BG FRACTION INSPIRED OXYGEN 21; BG HCO3 ACT 25.8 mmol/L (22.0-26.0); BG METHEMOGLOBIN 0.2 % (0.0-1.5); BG OXYGEN SATURATION 94.8 % (92.0-98.5); BG PCO2 45.8 mmHg (35.0-45.0); BG PH 7.369 (7.350-7.450); BG PO2 77.7 mmHg (75.0-100.0); BG SAMPLE SITE RIGHT RADIAL; BG TOTAL HEMOGLOBIN 13.2 g/dL (12.0-18.0); BG VENT MODE ROOM AIR
[2019-03-19] MEDS: BUDESONIDE 0.5MG/2ML NEB HHN SCH ×2 (15:43→20:45)
[2019-03-19] MEDS: IPRATROPIUM/ALBUTEROL 0.5-3(2.5)MG/3ML NEB HHN SCH ×2 (15:43→20:46)
[2019-03-19 16:00] VITALS: BP 115/70
[2019-03-19] MEDS: PREDNISONE 20MG TABLET PO SCH (17:00)
[2019-03-19 17:08] LABS: BG BASE EXCESS -0.1 mmol/L (-2.0-2.0); BG BILEVEL POS AIRWAY PRESSURE 15/5; BG CARBOXYHEMOGLOBIN 0.3 % (0.5-1.5); BG DEOXYHEMOGLOBIN 2.3 % (0.0-5.0); BG FRACTION INSPIRED OXYGEN 50; BG HCO3 ACT 25.6 mmol/L (22.0-26.0); BG METHEMOGLOBIN 0.4 % (0.0-1.5); BG OXYGEN SATURATION 97.7 % (92.0-98.5); BG PCO2 45.7 mmHg (35.0-45.0); BG PH 7.366 (7.350-7.450); BG SAMPLE SITE RIGHT BRACHIAL; BG TOTAL HEMOGLOBIN 13.3 g/dL (12.0-18.0); BG VENT MODE MASK - BIPAP
[2019-03-19 20:00] VITALS: BP 119/66
[2019-03-20] VITALS: BP 98/58
[2019-03-20] MEDS: IPRATROPIUM/ALBUTEROL 0.5-3(2.5)MG/3ML NEB HHN SCH ×5 (00:27→22:14)
[2019-03-20 04:00] VITALS: BP 125/72
[2019-03-20] MEDS: MORPHINE SULFATE 2 MG/ML CPJ (NOT FOR IM USE) IV PRN ×3 (04:43→20:34)
[2019-03-20 06:32] LABS: HEMATOCRIT. 36.2 % (42.0-52.0); MEAN CORPUSCULAR HEMOGLOBIN 29.6 pg (28.0-32.0); MEAN CORPUSCULAR VOLUME 89.6 fL (80.0-94.0); MEAN PLATELET VOLUME 7.7 fl (7.4-10.4); PLATELET 569 x1000/uL (130-400); RED BLOOD CELL COUNT 4.04 mill/uL (4.7-6.1); RED CELL DISTRIBUTION WIDTH 15.3 % (11.6-14.6)
[2019-03-20] MEDS: METFORMIN HCL 500MG TABLET PO SCH ×2 (06:44→17:15)
[2019-03-20 08:00] VITALS: BP 154/130
[2019-03-20 08:00] LABS: CHLORIDE 110 mEq/L (98-107)
[2019-03-20] MEDS: BUDESONIDE 0.5MG/2ML NEB HHN SCH ×2 (08:15→22:14)
[2019-03-20] MEDS: ENOXAPARIN 40MG/0.4ML SYR SUBCUT SCH ×2 (09:00→20:33)
[2019-03-20] MEDS: ALPRAZOLAM 0.5 MG TABLET PO SCH ×2 (09:00→20:34)
[2019-03-20] MEDS: FLUOXETINE HCL 20MG CAPSULE PO SCH (09:08)
[2019-03-20] MEDS: ASPIRIN 81MG TABLET PO SCH (09:08)
[2019-03-20] MEDS: PREDNISONE 20MG TABLET PO SCH ×2 (09:08→17:27)
[2019-03-20] MEDS: METOPROLOL TARTRATE 25MG TABLET PO SCH ×2 (09:08→20:35)
[2019-03-20] MEDS: QUETIAPINE FUMARATE 50MG TABLET PO SCH (09:08)
[2019-03-20 10:23] LABS: PLATELET ESTIMATE INCREASED
[2019-03-20 12:00] VITALS: BP 113/69
[2019-03-20 16:00] VITALS: BP 117/67
[2019-03-20 20:00] VITALS: BP 122/78
[2019-03-21] VITALS: BP 125/47
[2019-03-21] MEDS: MORPHINE SULFATE 2 MG/ML CPJ (NOT FOR IM USE) IV PRN ×4 (03:00→20:40)
[2019-03-21] MEDS: IPRATROPIUM/ALBUTEROL 0.5-3(2.5)MG/3ML NEB HHN SCH ×5 (03:38→21:40)
[2019-03-21 04:00] VITALS: BP 126/62
[2019-03-21 06:10] LABS: BASOPHILS % 0.2 % (0.0-2.0); HEMATOCRIT. 37.1 % (42.0-52.0); HEMOGLOBIN. 11.9 g/dL (14.0-18.0); LYMPHOCYTES % 8.6 % (20.0-50.0); MEAN CORPUSCULAR HEMOGLOBIN 28.9 pg (28.0-32.0); MEAN CORPUSCULAR VOLUME 90.2 fL (80.0-94.0); MEAN PLATELET VOLUME 7.9 fl (7.4-10.4); MONOCYTES % 8.1 % (2.0-8.0); NEUTROPHILS % 83.1 % (40.0-76.0); PLATELET 571 x1000/uL (130-400); RED BLOOD CELL COUNT 4.11 mill/uL (4.7-6.1); RED CELL DISTRIBUTION WIDTH 15.6 % (11.6-14.6)
[2019-03-21 06:33] LABS: CHLORIDE 109 mEq/L (98-107)
[2019-03-21] MEDS: METFORMIN HCL 500MG TABLET PO SCH ×2 (06:33→17:15)
[2019-03-21 08:00] VITALS: BP 133/80
[2019-03-21] MEDS: ASPIRIN 81MG TABLET PO SCH (08:25)
[2019-03-21] MEDS: METOPROLOL TARTRATE 25MG TABLET PO SCH (08:26)
[2019-03-21] MEDS: PREDNISONE 20MG TABLET PO SCH ×2 (08:26→17:34)
[2019-03-21] MEDS: ALPRAZOLAM 0.5 MG TABLET PO SCH ×2 (08:26→20:58)
[2019-03-21] MEDS: QUETIAPINE FUMARATE 50MG TABLET PO SCH (08:30)
[2019-03-21] MEDS: FLUOXETINE HCL 20MG CAPSULE PO SCH (08:30)
[2019-03-21] MEDS: ENOXAPARIN 40MG/0.4ML SYR SUBCUT SCH ×2 (08:30→20:59)
[2019-03-21] MEDS: BUDESONIDE 0.5MG/2ML NEB HHN SCH ×2 (09:59→21:40)
[2019-03-21] MEDS ORDERED: BENZONATATE 100MG CAPSULE PO PRN (10:00)
[2019-03-21] MEDS: LISINOPRIL 5MG TABLET PO SCH (10:45)
[2019-03-21 12:00] VITALS: BP 145/77
[2019-03-21] MEDS ORDERED: LIDOCAINE HCL/EPINEPHRINE 1%-EPI 1:100,000 30 ML VIAL INFIL SCH (12:00)
[2019-03-21 16:00] VITALS: BP 120/74
[2019-03-21 20:00] VITALS: BP 119/74
[2019-03-22] VITALS: BP 111/81
[2019-03-22] MEDS: GUAIFENESIN-DM 200MG-20MG/10ML UDC PO PRN (01:04)
[2019-03-22] MEDS: MORPHINE SULFATE 2 MG/ML CPJ (NOT FOR IM USE) IV PRN ×5 (01:06→22:21)
[2019-03-22] MEDS: IPRATROPIUM/ALBUTEROL 0.5-3(2.5)MG/3ML NEB HHN SCH ×6 (01:46→21:17)
[2019-03-22 04:00] VITALS: BP 142/85
[2019-03-22] MEDS: METFORMIN HCL 500MG TABLET PO SCH ×2 (06:27→17:15)
[2019-03-22] MEDS ORDERED: LIDOCAINE HCL/EPINEPHRINE 1%-EPI 1:100,000 20 ML VIAL INFIL NR (07:00)
[2019-03-22 08:00] VITALS: BP 133/87
[2019-03-22] MEDS: ENOXAPARIN 40MG/0.4ML SYR SUBCUT SCH ×2 (09:00→21:04)
[2019-03-22] MEDS: QUETIAPINE FUMARATE 50MG TABLET PO SCH (09:00)
[2019-03-22] MEDS: AMLODIPINE 5MG TABLET PO SCH ×2 (09:00→21:04)
[2019-03-22] MEDS: FLUOXETINE HCL 20MG CAPSULE PO SCH (09:08)
[2019-03-22] MEDS: ASPIRIN 81MG TABLET PO SCH (09:08)
[2019-03-22] MEDS: ALPRAZOLAM 0.5 MG TABLET PO SCH (09:09)
[2019-03-22] MEDS: PREDNISONE 20MG TABLET PO SCH (09:09)
[2019-03-22] MEDS: LISINOPRIL 5MG TABLET PO SCH (09:10)
[2019-03-22] MEDS: BUDESONIDE 0.5MG/2ML NEB HHN SCH ×2 (09:26→21:17)
[2019-03-22 12:00] VITALS: BP 125/64
[2019-03-22 16:00] VITALS: BP 102/50
[2019-03-22 16:07] LABS: CHLORIDE 107 mEq/L (98-107)
[2019-03-22 16:15] LABS: BASOPHILS % 0.1 % (0.0-2.0); EOSINOPHILS % 0.1 % (0.0-5.0); HEMOGLOBIN. 11.7 g/dL (14.0-18.0); LYMPHOCYTES % 7.2 % (20.0-50.0); MEAN CORPUSCULAR HEMOGLOBIN 29.2 pg (28.0-32.0); MEAN CORPUSCULAR VOLUME 89.9 fL (80.0-94.0); MEAN PLATELET VOLUME 7.9 fl (7.4-10.4); MONOCYTES % 6.5 % (2.0-8.0); NEUTROPHILS % 86.1 % (40.0-76.0); PLATELET 549 x1000/uL (130-400); RED CELL DISTRIBUTION WIDTH 15.9 % (11.6-14.6)
[2019-03-22 16:19] LABS: T4 FREE 0.77 ng/dL (0.76-1.46)
[2019-03-22 20:00] VITALS: BP 122/58
[2019-03-23] VITALS (7 sets, daily range): BP systolic 108–140; BP diastolic 60–85
[2019-03-23] MEDS: MORPHINE SULFATE 2 MG/ML CPJ (NOT FOR IM USE) IV PRN ×4 (02:26→15:53)
[2019-03-23] MEDS: IPRATROPIUM/ALBUTEROL 0.5-3(2.5)MG/3ML NEB HHN SCH ×6 (04:00→21:30)
[2019-03-23] MEDS: METFORMIN HCL 500MG TABLET PO SCH ×2 (06:16→17:15)
[2019-03-23] MEDS ORDERED: PREDNISONE 20MG TABLET PO SCH (07:15)
[2019-03-23 07:16] LABS: BASOPHILS % 0.6 % (0.0-2.0); EOSINOPHILS % 0.5 % (0.0-5.0); HEMATOCRIT. 37.5 % (42.0-52.0); HEMOGLOBIN. 12.2 g/dL (14.0-18.0); LYMPHOCYTES % 19.4 % (20.0-50.0); MEAN CORPUSCULAR HEMOGLOBIN 29.2 pg (28.0-32.0); MEAN PLATELET VOLUME 7.7 fl (7.4-10.4); MONOCYTES % 8.9 % (2.0-8.0); NEUTROPHILS % 70.6 % (40.0-76.0); PLATELET 554 x1000/uL (130-400); RED BLOOD CELL COUNT 4.17 mill/uL (4.7-6.1); RED CELL DISTRIBUTION WIDTH 15.9 % (11.6-14.6)
[2019-03-23] MEDS: BUDESONIDE 0.5MG/2ML NEB HHN SCH ×2 (08:19→21:30)
[2019-03-23] MEDS: ASPIRIN 81MG TABLET PO SCH (08:33)
[2019-03-23] MEDS: FLUOXETINE HCL 20MG CAPSULE PO SCH (08:34)
[2019-03-23] MEDS: ENOXAPARIN 40MG/0.4ML SYR SUBCUT SCH ×2 (08:35→20:55)
[2019-03-23 08:39] LABS: CHLORIDE 109 mEq/L (98-107)
[2019-03-23] MEDS: LISINOPRIL 5MG TABLET PO SCH (08:49)
[2019-03-23] MEDS: AMLODIPINE 5MG TABLET PO SCH ×2 (08:49→20:55)
[2019-03-23] MEDS: QUETIAPINE FUMARATE 50MG TABLET PO SCH (08:59)
[2019-03-23] MEDS ORDERED: METF500T PO (15:49)
[2019-03-23] MEDS ORDERED: LISI-186 PO (15:49)
[2019-03-23] MEDS ORDERED: IPRA3AMP9 HHN (15:49)
[2019-03-23] MEDS ORDERED: P20 PO (15:49)
[2019-03-23] MEDS ORDERED: AMLO5TAB88 PO (15:49)
[2019-03-23] MEDS ORDERED: SULF1TAB48 MT (15:49)
[2019-03-24] VITALS: BP 121/76
== END 2019-03-24 02:30 | DRG 816 ==
LOC: ER 05:51 → 5WST 08:51 → ENRESERV 11:06
PROVIDERS: ADMIT Internal Medicine; ATTEND Internal Medicine
PROC: 5A09357 Assistance with Respiratory Ventilation, Less than 24 Consecutive Hours, Continuous Positive Airway Pressure (ICD-10-PCS; principal; 2019-03-19)
PROC: 5A09357 Assistance with Respiratory Ventilation, Less than 24 Consecutive Hours, Continuous Positive Airway Pressure (ICD-10-PCS; 2019-03-20)
PROC: 5A09357 Assistance with Respiratory Ventilation, Less than 24 Consecutive Hours, Continuous Positive Airway Pressure (ICD-10-PCS; 2019-03-21)
PROC: 5A09357 Assistance with Respiratory Ventilation, Less than 24 Consecutive Hours, Continuous Positive Airway Pressure (ICD-10-PCS; 2019-03-22)
DX: T40.5X4A Poisoning by cocaine, undetermined, initial encounter (principal); J96.20 Acute and chronic respiratory failure, unspecified whether with hypoxia or hypercapnia; I47.2 Ventricular tachycardia; E44.1 Mild protein-calorie malnutrition; E11.9 Type 2 diabetes mellitus without complications; D64.9 Anemia, unspecified; I50.9 Heart failure, unspecified; I11.0 Hypertensive heart disease with heart failure; I49.5 Sick sinus syndrome; F12.10 Cannabis abuse, uncomplicated; L05.01 Pilonidal cyst with abscess; R07.89 Other chest pain; F32.9 Major depressive disorder, single episode, unspecified; G40.909 Epilepsy, unspecified, not intractable, without status epilepticus; F14.10 Cocaine abuse, uncomplicated; F41.9 Anxiety disorder, unspecified; M47.816 Spondylosis without myelopathy or radiculopathy, lumbar region; E66.2 Morbid (severe) obesity with alveolar hypoventilation; M51.36 Other intervertebral disc degeneration, lumbar region; J68.0 Bronchitis and pneumonitis due to chemicals, gases, fumes and vapors; Z53.9 Procedure and treatment not carried out, unspecified reason; K62.89 Other specified diseases of anus and rectum; I69.354 Hemiplegia and hemiparesis following cerebral infarction affecting left non-dominant side; Z95.0 Presence of cardiac pacemaker; Z68.42 Body mass index [BMI] 45.0-49.9, adult; Z88.5 Allergy status to narcotic agent; Z71.3 Dietary counseling and surveillance; Y92.89 Other specified places as the place of occurrence of the external cause; Z79.84 Long term (current) use of oral hypoglycemic drugs
CPT/HCPCS: 36415; 36600; 71045; 78580; 80048; 80305; 82375; 82805; 83735; 83880; 84145; 84439; 84443; 84481; 84484; 85379; 93005; 93970; 94640; 94660; 97162; 99285; J1650; J2270; J2405; J2930; J3490; J7512; J7620; J7626

== ENCOUNTER 2019-03-26 14:01 | Inpatient (IN) | payer MEDICAID ==
[~2019-03-26] VITALS: Ht 175.3 cm; Wt 117.9 kg
[~2019-03-26 14:01] MED LIST changes: +AMLO5TAB88 PO; +IPRA3AMP9 HHN; +LISI-186 PO; +METF500T PO; +P20 PO; +SULF1TAB48 MT
[2019-03-26] MEDS ORDERED: MORPHINE SULFATE 4 MG/ML CPJ (NOT FOR IM USE) IV ONE ×2 (16:30→18:45)
[2019-03-26 16:53] LABS: CLARITY URINE CLEAR (CLEAR); COLOR URINE YELLOW (YELLOW); KETONES URINE NEGATIVE (NEGATIVE); LEUKOCYTE ESTERASE URINE NEGATIVE (NEGATIVE); NITRITE URINE NEGATIVE (NEGATIVE); OCCULT BLOOD URINE NEGATIVE (NEGATIVE); PROTEIN URINE NEGATIVE (NEGATIVE); SPECIFIC GRAVITY URINE 1.023 (1.005-1.030); UROBILINOGEN URINE 0.2 E.U./dL (0.2-1.0)
[2019-03-26 17:17] LABS: CHLORIDE 107 mEq/L (98-107)
[2019-03-26 17:19] LABS: BASOPHILS % 0.3 % (0.0-2.0); EOSINOPHILS % 0.7 % (0.0-5.0); HEMATOCRIT. 39.2 % (42.0-52.0); HEMOGLOBIN. 12.9 g/dL (14.0-18.0); INR 1.1; LYMPHOCYTES % 7.7 % (20.0-50.0); MEAN CORPUSCULAR HEMOGLOBIN 29.3 pg (28.0-32.0); MEAN CORPUSCULAR VOLUME 89.3 fL (80.0-94.0); MEAN PLATELET VOLUME 7.7 fl (7.4-10.4); MONOCYTES % 6.5 % (2.0-8.0); NEUTROPHILS % 84.8 % (40.0-76.0); PLATELET 514 x1000/uL (130-400); PROTHROMBIN TIME 11.5 sec (9.6-11.0); RED BLOOD CELL COUNT 4.39 mill/uL (4.7-6.1); RED CELL DISTRIBUTION WIDTH 15.8 % (11.6-14.6)
[2019-03-26] MEDS ORDERED: CLINDAMYCIN 600 MG in DEXTROSE 5% WATER 50 ML IV ONE (17:45)
[2019-03-26 20:44] VITALS: BP 125/77
[2019-03-26] MEDS: MORPHINE SULFATE 2 MG/ML CPJ (NOT FOR IM USE) IV PRN (22:56)
[2019-03-26 23:39] LABS: *AMPHETAMINES SCREEN URINE NEGATIVE (NEGATIVE); *BARBITURATES SCREEN URINE NEGATIVE (NEGATIVE); *BENZODIAZEPINES SCREEN URINE PRESUMTIVE POSITIVE (NEGATIVE); *COCAINE SCREEN URINE NEGATIVE (NEGATIVE)
[2019-03-26 23:40] LABS: CANNABINOID URINE SCREEN NEGATIVE (NEGATIVE); METHADONE URINE SCREEN NEGATIVE (NEGATIVE); OPIATES URINE SCREEN PRESUMTIVE POSITIVE (NEGATIVE); PHENCYCLIDINE URINE SCREEN NEGATIVE (NEGATIVE)
[2019-03-26] MEDS: PIPERACILLIN/TAZ 3.375G PREMIX 50 ML IV SCH (23:53)
[2019-03-27] VITALS: BP 118/75
[2019-03-27] MEDS: MORPHINE SULFATE 2 MG/ML CPJ (NOT FOR IM USE) IV PRN ×5 (03:18→19:09)
[2019-03-27 04:00] VITALS: BP 109/59
[2019-03-27] MEDS: PIPERACILLIN/TAZ 3.375G PREMIX 50 ML IV SCH ×3 (05:21→17:50)
[2019-03-27 08:00] VITALS: BP 113/81
[2019-03-27 12:00] VITALS: BP 89/62
[2019-03-27] MEDS ORDERED: IPRATROPIUM/ALBUTEROL 0.5-3(2.5)MG/3ML NEB HHN PRN (12:00)
[2019-03-27 16:00] VITALS: BP 121/63
[2019-03-27] MEDS: IPRATROPIUM/ALBUTEROL 0.5-3(2.5)MG/3ML NEB HHN SCH ×2 (16:40→20:38)
[2019-03-27] MEDS: BUDESONIDE 0.5MG/2ML NEB HHN SCH (16:41)
[2019-03-27] MEDS ORDERED: VANCOMYCIN 2,000 MG in DEXT 5% WATER 500 ML IV SCH (18:30)
[2019-03-27 20:00] VITALS: BP 113/74
[2019-03-27] MEDS: ENOXAPARIN 40MG/0.4ML SYR SUBCUT SCH (21:00)
[2019-03-28] VITALS: BP 129/87
[2019-03-28] MEDS: IPRATROPIUM/ALBUTEROL 0.5-3(2.5)MG/3ML NEB HHN SCH ×4 (01:10→20:56)
[2019-03-28] MEDS: PIPERACILLIN/TAZ 3.375G PREMIX 50 ML IV SCH ×5 (01:54→23:18)
[2019-03-28] MEDS: MORPHINE SULFATE 2 MG/ML CPJ (NOT FOR IM USE) IV PRN ×6 (01:54→20:34)
[2019-03-28] MEDS: VANCOMYCIN 1 G PREMIX 200 ML IV SCH ×3 (03:41→20:46)
[2019-03-28 04:00] VITALS: BP 108/52
[2019-03-28 08:00] VITALS: BP 131/68
[2019-03-28] MEDS: BUDESONIDE 0.5MG/2ML NEB HHN SCH ×2 (08:57→20:56)
[2019-03-28] MEDS: SODIUM CHLORIDE 0.45% 1,000 ML IV SCH ×2 (08:59→19:00)
[2019-03-28] MEDS: ENOXAPARIN 40MG/0.4ML SYR SUBCUT SCH ×2 (09:00→21:00)
[2019-03-28 12:00] VITALS: BP 122/78
[2019-03-28] MEDS ORDERED: LIDOCAINE HCL 1% 20ML VIAL (Pyxis) INJ ONE (15:16)
[2019-03-28] MEDS ORDERED: BUPIVACAINE HCL/PF 0.5% (5MG/ML) 10ML ONE (15:17)
[2019-03-28] MEDS ORDERED: BACITRACIN 50,000 UNITS/VIAL ONE (15:17)
[2019-03-28 16:00] VITALS: BP 135/62
[2019-03-28] MEDS ORDERED: MIDAZOLAM HCL 2 MG/2 ML VIAL ONE ×2 (16:35→16:46)
[2019-03-28] MEDS ORDERED: FENTANYL CITRATE/PF 50MCG/ML 2ML VIAL ONE ×2 (16:35→16:46)
[2019-03-28] MEDS ORDERED: PROPOFOL 200MG/20ML VIAL IV ONE (16:35)
[2019-03-28] MEDS ORDERED: ONDANSETRON HCL 4MG/2ML INJ ONE (16:46)
[2019-03-28] MEDS ORDERED: DEXAMETHASONE 4MG/ML 1ML VIAL ONE (16:46)
[2019-03-28] MEDS ORDERED: LABETALOL 5MG/ML SYR 20 MG/4 ML SYRINGE IV PRN (17:30)
[2019-03-28] MEDS ORDERED: ONDANSETRON HCL 4MG/2ML INJ IV PRN (17:30)
[2019-03-28] MEDS ORDERED: MEPERIDINE HCL/PF 25MG/ML CPJ IV PRN (17:30)
[2019-03-28] MEDS: HYDROMORPHONE HCL/PF 2MG/ML CPJ IV PRN ×2 (17:41→18:13)
[2019-03-28 20:00] VITALS: BP 115/69
[2019-03-29] VITALS (7 sets, daily range): BP systolic 103–122; BP diastolic 47–73
[2019-03-29] MEDS: MORPHINE SULFATE 2 MG/ML CPJ (NOT FOR IM USE) IV PRN ×5 (00:37→17:29)
[2019-03-29] MEDS: IPRATROPIUM/ALBUTEROL 0.5-3(2.5)MG/3ML NEB HHN SCH ×3 (01:30→14:34)
[2019-03-29] MEDS: VANCOMYCIN 1 G PREMIX 200 ML IV SCH ×3 (03:30→18:31)
[2019-03-29 06:25] LABS: CHLORIDE 104 mEq/L (98-107)
[2019-03-29] MEDS: PIPERACILLIN/TAZ 3.375G PREMIX 50 ML IV SCH ×3 (06:49→17:30)
[2019-03-29] MEDS ORDERED: LIDOCAINE HCL 1% 20ML VIAL (Pyxis) INJ ONE (07:38)
[2019-03-29] MEDS ORDERED: SODIUM BICARBONATE 4% (2.4MEQ) 5ML VIAL IV ONE (07:38)
[2019-03-29] MEDS: ENOXAPARIN 40MG/0.4ML SYR SUBCUT SCH (09:31)
[2019-03-29 10:17] LABS: BASOPHILS % 1.3 % (0.0-2.0); EOSINOPHILS % 2.5 % (0.0-5.0); HEMOGLOBIN. 12.5 g/dL (14.0-18.0); MEAN CORPUSCULAR HEMOGLOBIN 29.3 pg (28.0-32.0); MEAN CORPUSCULAR VOLUME 89.1 fL (80.0-94.0); MEAN PLATELET VOLUME 7.5 fl (7.4-10.4); MONOCYTES % 7.1 % (2.0-8.0); NEUTROPHILS % 75.1 % (40.0-76.0); PLATELET 421 x1000/uL (130-400); RED BLOOD CELL COUNT 4.27 mill/uL (4.7-6.1)
[2019-03-29] MEDS: BUDESONIDE 0.5MG/2ML NEB HHN SCH (14:34)
[2019-03-29] MEDS ORDERED: VANC250C12 IV (16:01)
[2019-03-29] MEDS ORDERED: HYDR-3281 MT (16:02)
== END 2019-03-29 20:10 | DRG 720 ==
LOC: ER 14:01 → 6EST 18:41 → EDBEDREQSVC 18:47 → EDBEDREQ 18:47 → ENRESERV 19:47
PROVIDERS: ADMIT Family Medicine; ATTEND Family Medicine
PROC: 5A09357 Assistance with Respiratory Ventilation, Less than 24 Consecutive Hours, Continuous Positive Airway Pressure (ICD-10-PCS; 2019-03-27)
PROC: 0H98XZZ Drainage of Buttock Skin, External Approach (ICD-10-PCS; principal; 2019-03-28)
PROC: 5A09357 Assistance with Respiratory Ventilation, Less than 24 Consecutive Hours, Continuous Positive Airway Pressure (ICD-10-PCS; 2019-03-28)
PROC: 02HV33Z Insertion of Infusion Device into Superior Vena Cava, Percutaneous Approach (ICD-10-PCS; 2019-03-29)
PROC: B548ZZA Ultrasonography of Superior Vena Cava, Guidance (ICD-10-PCS; 2019-03-29)
PROC: B548ZZA Ultrasonography of Superior Vena Cava, Guidance (ICD-10-PCS; 2019-03-29)
DX: A41.9 Sepsis, unspecified organism (principal); J96.00 Acute respiratory failure, unspecified whether with hypoxia or hypercapnia; E66.01 Morbid (severe) obesity due to excess calories; I50.9 Heart failure, unspecified; I11.0 Hypertensive heart disease with heart failure; E11.9 Type 2 diabetes mellitus without complications; L05.01 Pilonidal cyst with abscess; E78.5 Hyperlipidemia, unspecified; J98.01 Acute bronchospasm; I49.5 Sick sinus syndrome; L05.91 Pilonidal cyst without abscess; I69.354 Hemiplegia and hemiparesis following cerebral infarction affecting left non-dominant side; F41.9 Anxiety disorder, unspecified; G47.33 Obstructive sleep apnea (adult) (pediatric); Z68.38 Body mass index [BMI] 38.0-38.9, adult; F32.9 Major depressive disorder, single episode, unspecified; Z95.0 Presence of cardiac pacemaker; Z88.5 Allergy status to narcotic agent
CPT/HCPCS: 36415; 36569; 36573; 71045; 74176; 80202; 80305; 83605; 93005; 94640; 94660; 99285; C1725; C1893; J1100; J1170; J1650; J2250; J2270; J2405; J2543; J2704; J3010; J3370; J3490; J7040; J7050; J7060; J7620; J7626

== ENCOUNTER 2019-04-09 09:27 | Emergency (ER) | payer MEDICAID ==
[~2019-04-09] VITALS: Ht 175.3 cm; Wt 140.0 kg
[~2019-04-09 09:27] MED LIST changes: -ASPI-1160 PO; +HYDR-3281 MT; -P20 PO; -SULF1TAB48 MT; +VANC250C12 IV
[2019-04-09] MEDS ORDERED: MORPHINE SULFATE 4 MG/ML CPJ (NOT FOR IM USE) IV STA (10:46)
[2019-04-09] MEDS ORDERED: ONDANSETRON HCL 4MG/2ML INJ IV STA (10:46)
[2019-04-09 10:57] LABS: BASOPHILS % 1.3 % (0.0-2.0); EOSINOPHILS % 3.1 % (0.0-5.0); HEMATOCRIT. 35.9 % (42.0-52.0); HEMOGLOBIN. 11.8 g/dL (14.0-18.0); LYMPHOCYTES % 14.4 % (20.0-50.0); MEAN CORPUSCULAR HEMOGLOBIN 29.1 pg (28.0-32.0); MEAN CORPUSCULAR VOLUME 88.8 fL (80.0-94.0); MEAN PLATELET VOLUME 7.6 fl (7.4-10.4); MONOCYTES % 8.2 % (2.0-8.0); PLATELET 385 x1000/uL (130-400); RED BLOOD CELL COUNT 4.05 mill/uL (4.7-6.1); RED CELL DISTRIBUTION WIDTH 16.1 % (11.6-14.6)
[2019-04-09 10:58] LABS: CHLORIDE 109 mEq/L (98-107)
[2019-04-09] MEDS ORDERED: ASPIRIN 81MG TABLET PO ONE (11:00)
[2019-04-09 11:02] LABS: INR 1.1; PROTHROMBIN TIME 11.4 sec (9.6-11.0)
[2019-04-09] MEDS ORDERED: HYDROMORPHONE HCL/PF 2MG/ML CPJ IV ONE (12:15)
[2019-04-09] MEDS ORDERED: MORPHINE SULFATE 4 MG/ML CPJ (NOT FOR IM USE) IV ONE (14:15)
[2019-04-09 15:24] VITALS: BP 125/83
== END 2019-04-09 16:12 | disposition home or self-care (01) ==
LOC: ER 09:27 → CANRESERV 15:54 → ER 16:12 → CANBEDREQ 16:28
DX: R07.9 Chest pain, unspecified (principal); R51 Headache; I11.9 Hypertensive heart disease without heart failure; J44.9 Chronic obstructive pulmonary disease, unspecified; E78.00 Pure hypercholesterolemia, unspecified; E78.5 Hyperlipidemia, unspecified; Z95.0 Presence of cardiac pacemaker; Z88.5 Allergy status to narcotic agent; Z88.8 Allergy status to other drugs, medicaments and biological substances; Z88.6 Allergy status to analgesic agent; Z79.899 Other long term (current) drug therapy; Z86.73 Personal history of transient ischemic attack (TIA), and cerebral infarction without residual deficits
CPT/HCPCS: 36415; 70450; 71045; 80053; 83880; 84484; 85025; 85610; 93005; 96374; 96375; 99284; J1170; J2270; J2405; Z7610

== ENCOUNTER 2019-04-15 21:17 | Inpatient (IN) | payer MEDICAID ==
[~2019-04-15] VITALS: Ht 175.3 cm; Wt 148.8 kg
[2019-04-15] MEDS ORDERED: SODIUM CHLORIDE 0.9% 1,000 ML IV ONE (22:00)
[2019-04-15] MEDS ORDERED: LEVOFLOXACIN 750MG PREMIX 150 ML IV ONE (22:00)
[2019-04-15] MEDS ORDERED: IPRATROPIUM/ALBUTEROL 0.5-3(2.5)MG/3ML NEB HHN ONE (22:00)
[2019-04-15] MEDS ORDERED: METHYLPREDNISOLONE SOD SUCC 125 MG/2 ML VIAL IV STA (22:00)
[2019-04-15] MEDS ORDERED: ONDANSETRON HCL 4MG/2ML INJ IV STA (22:00)
[2019-04-15] MEDS ORDERED: MORPHINE SULFATE 4 MG/ML CPJ (NOT FOR IM USE) IV STA (22:00)
[2019-04-15 23:53] LABS: BASOPHILS % 0.4 % (0.0-2.0); EOSINOPHILS % 2.7 % (0.0-5.0); HEMATOCRIT. 38.7 % (42.0-52.0); HEMOGLOBIN. 12.8 g/dL (14.0-18.0); LYMPHOCYTES % 30.8 % (20.0-50.0); MEAN CORPUSCULAR HEMOGLOBIN 29.4 pg (28.0-32.0); MEAN CORPUSCULAR VOLUME 88.6 fL (80.0-94.0); MONOCYTES % 9.9 % (2.0-8.0); NEUTROPHILS % 56.2 % (40.0-76.0); PLATELET 567 x1000/uL (130-400); RED BLOOD CELL COUNT 4.37 mill/uL (4.7-6.1); RED CELL DISTRIBUTION WIDTH 16.4 % (11.6-14.6)
[2019-04-16] LABS: CHLORIDE 106 mEq/L (98-107); INR 1.1; PARTIAL THROMBOPLASTIN TIME 35.8 sec (23.4-31.0); PROTHROMBIN TIME 11.4 sec (9.6-11.0)
[2019-04-16 00:04] LABS: ETHANOL BLOOD < 10 mg/dL
[2019-04-16] MEDS ORDERED: ASPIRIN 325MG TABLET PO ONE (00:30)
[2019-04-16] MEDS ORDERED: VANCOMYCIN 1 G PREMIX 200 ML IV SCH (00:45)
[2019-04-16] MEDS ORDERED: MORPHINE SULFATE 4 MG/ML CPJ (NOT FOR IM USE) IV ONE (00:45)
[2019-04-16] MEDS: MORPHINE SULFATE 2 MG/ML CPJ (NOT FOR IM USE) IV PRN ×4 (04:29→20:13)
[2019-04-16] MEDS ORDERED: DIPHENHYDRAMINE 50MG/ML VIAL IV NR (06:15)
[2019-04-16 08:00] VITALS: BP 109/63
[2019-04-16] MEDS ORDERED: ONDANSETRON HCL 4MG/2ML INJ IV PRN (08:30)
[2019-04-16] MEDS ORDERED: ACETAMINOPHEN 325MG TABLET PO PRN (08:30)
[2019-04-16] MEDS ORDERED: IPRATROPIUM/ALBUTEROL 0.5-3(2.5)MG/3ML NEB HHN PRN (08:30)
[2019-04-16 08:50] VITALS: BP 109/83
[2019-04-16] MEDS ORDERED: METHYLPREDNISOLONE SOD SUCC 40 MG/ML VIAL IV SCH (10:00)
[2019-04-16] MEDS: ASPIRIN 81MG TABLET PO SCH (10:31)
[2019-04-16 12:00] VITALS: BP 101/64
[2019-04-16] MEDS ORDERED: FLUO20CA33 MT (12:12)
[2019-04-16] MEDS: IPRATROPIUM/ALBUTEROL 0.5-3(2.5)MG/3ML NEB HHN SCH ×3 (12:42→20:00)
[2019-04-16] MEDS ORDERED: DIPHENHYDRAMINE 50MG CAPSULE PO PRN (13:15)
[2019-04-16] MEDS: SUMATRIPTAN SUCCINATE 6MG/0.5ML VIAL SUBCUT NR ×3 (15:00→15:07)
[2019-04-16 16:00] VITALS: BP 103/63
[2019-04-16 20:00] VITALS: BP 144/48
[2019-04-17] VITALS: BP 101/45
[2019-04-17] MEDS: MORPHINE SULFATE 2 MG/ML CPJ (NOT FOR IM USE) IV PRN ×5 (01:06→20:25)
[2019-04-17 04:00] VITALS: BP 150/81
[2019-04-17] MEDS: IPRATROPIUM/ALBUTEROL 0.5-3(2.5)MG/3ML NEB HHN SCH ×6 (04:00→21:42)
[2019-04-17] MEDS: ASPIRIN 81MG TABLET PO SCH (08:52)
[2019-04-17] MEDS: PREDNISONE 20MG TABLET PO SCH (08:53)
[2019-04-17 12:11] VITALS: BP 120/50
[2019-04-17] MEDS ORDERED: SODIUM BICARBONATE 4% (2.4MEQ) 5ML VIAL IV ONE (12:58)
[2019-04-17] MEDS ORDERED: LIDOCAINE HCL 1% 20ML VIAL (Pyxis) INJ ONE (12:58)
[2019-04-17 13:30] LABS: HEMATOCRIT. 37.5 % (42.0-52.0); MEAN CORPUSCULAR HEMOGLOBIN 29.1 pg (28.0-32.0); MEAN CORPUSCULAR VOLUME 90.6 fL (80.0-94.0); MEAN PLATELET VOLUME 7.6 fl (7.4-10.4); PLATELET 480 x1000/uL (130-400); RED BLOOD CELL COUNT 4.13 mill/uL (4.7-6.1); RED CELL DISTRIBUTION WIDTH 16.1 % (11.6-14.6)
[2019-04-17 13:43] LABS: CHLORIDE 110 mEq/L (98-107)
[2019-04-17 13:49] LABS: PLATELET ESTIMATE INCREASED
[2019-04-17] MEDS ORDERED: IOHEXOL-350 100 ML BOTTLE ONE (14:53)
[2019-04-17 15:26] LABS: *AMPHETAMINES SCREEN URINE NEGATIVE (NEGATIVE); *BARBITURATES SCREEN URINE NEGATIVE (NEGATIVE); *BENZODIAZEPINES SCREEN URINE NEGATIVE (NEGATIVE); *COCAINE SCREEN URINE NEGATIVE (NEGATIVE); CANNABINOID URINE SCREEN NEGATIVE (NEGATIVE); METHADONE URINE SCREEN NEGATIVE (NEGATIVE); OPIATES URINE SCREEN PRESUMTIVE POSITIVE (NEGATIVE); PHENCYCLIDINE URINE SCREEN NEGATIVE (NEGATIVE)
[2019-04-17] MEDS: GABAPENTIN 300MG CAPSULE PO SCH ×2 (15:28→21:39)
[2019-04-17 16:00] VITALS: BP 120/72
[2019-04-17] MEDS ORDERED: SUMATRIPTAN SUCCINATE 6MG/0.5ML VIAL SUBCUT NR (16:00)
[2019-04-17 20:00] VITALS: BP 138/73
[2019-04-18] VITALS: BP 129/62
[2019-04-18] MEDS: MORPHINE SULFATE 2 MG/ML CPJ (NOT FOR IM USE) IV PRN ×4 (00:39→13:26)
[2019-04-18] MEDS: IPRATROPIUM/ALBUTEROL 0.5-3(2.5)MG/3ML NEB HHN SCH ×3 (02:24→12:54)
[2019-04-18 04:00] VITALS: BP 154/76
[2019-04-18] MEDS: GABAPENTIN 300MG CAPSULE PO SCH ×2 (05:48→14:00)
[2019-04-18 08:00] VITALS: BP 143/76
[2019-04-18] MEDS: PREDNISONE 20MG TABLET PO SCH (09:04)
[2019-04-18] MEDS: ASPIRIN 81MG TABLET PO SCH (09:04)
[2019-04-18 12:00] VITALS: BP 143/73
[2019-04-18 12:15] VITALS: BP 143/73
[2019-04-18 13:26] VITALS: BP 143/73
== END 2019-04-18 15:15 | DRG 140 ==
LOC: ER 21:17 → 5WST 04-16 00:36 → EDBEDREQTM 04-16 00:37 → EDBEDREQDT 04-16 00:37 → EDBEDREQ 04-16 00:37 → ENRESERV 04-16 07:01
PROVIDERS: ADMIT Internal Medicine; ATTEND Internal Medicine
PROC: 02HV33Z Insertion of Infusion Device into Superior Vena Cava, Percutaneous Approach (ICD-10-PCS; principal; 2019-04-17)
PROC: B548ZZA Ultrasonography of Superior Vena Cava, Guidance (ICD-10-PCS; 2019-04-17)
PROC: B5181ZA Fluoroscopy of Superior Vena Cava using Low Osmolar Contrast, Guidance (ICD-10-PCS; 2019-04-17)
DX: J44.1 Chronic obstructive pulmonary disease with (acute) exacerbation (principal); I49.5 Sick sinus syndrome; Z68.42 Body mass index [BMI] 45.0-49.9, adult; D64.9 Anemia, unspecified; E11.9 Type 2 diabetes mellitus without complications; E78.00 Pure hypercholesterolemia, unspecified; E66.9 Obesity, unspecified; F14.10 Cocaine abuse, uncomplicated; F32.9 Major depressive disorder, single episode, unspecified; F41.9 Anxiety disorder, unspecified; G47.33 Obstructive sleep apnea (adult) (pediatric); I10 Essential (primary) hypertension; F12.90 Cannabis use, unspecified, uncomplicated; Z86.73 Personal history of transient ischemic attack (TIA), and cerebral infarction without residual deficits; Z95.0 Presence of cardiac pacemaker; Z88.6 Allergy status to analgesic agent; Z79.899 Other long term (current) drug therapy
CPT/HCPCS: 36415; 36573; 70496; 71045; 80048; 80305; 80320; 83605; 83880; 84484; 93005; 94640; 97116; 97162; 99285; C1725; C1769; J1200; J1956; J2270; J2405; J2920; J2930; J3030; J3370; J3490; J7030; J7512; J7620; Q0163; Q9967; G0480

== ENCOUNTER 2019-05-25 01:53 | Inpatient (IN) | payer MEDICAID ==
[~2019-05-25] VITALS: Ht 172.7 cm; Wt 147.9 kg
[~2019-05-25 01:53] MED LIST changes: -AMLO5TAB88 PO; +FLUO20CA33 MT; -FLUO40CA49 PO; -IPRA3AMP9 HHN; -LISI-186 PO; -METF500T PO; -VANC250C12 IV
[2019-05-25] MEDS ORDERED: NITROGLYCERIN 0.4MG TABLET SL SL PRN (02:30)
[2019-05-25] MEDS ORDERED: FUROSEMIDE 40MG/4ML VIAL IV ONE (02:30)
[2019-05-25] MEDS ORDERED: ASPIRIN 81MG TABLET PO ONE (02:30)
[2019-05-25 03:22] LABS: BASOPHILS % 0.7 % (0.0-2.0); EOSINOPHILS % 4.4 % (0.0-5.0); HEMATOCRIT. 35.8 % (42.0-52.0); HEMOGLOBIN. 11.9 g/dL (14.0-18.0); LYMPHOCYTES % 16.6 % (20.0-50.0); MEAN CORPUSCULAR HEMOGLOBIN 29.7 pg (28.0-32.0); MEAN CORPUSCULAR VOLUME 89.3 fL (80.0-94.0); MEAN PLATELET VOLUME 7.5 fl (7.4-10.4); MONOCYTES % 12.3 % (2.0-8.0); PLATELET 469 x1000/uL (130-400); RED CELL DISTRIBUTION WIDTH 15.6 % (11.6-14.6)
[2019-05-25 03:28] LABS: CHLORIDE 110 mEq/L (98-107)
[2019-05-25 03:32] LABS: ETHANOL BLOOD < 10 mg/dL
[2019-05-25 04:36] LABS: *AMPHETAMINES SCREEN URINE NEGATIVE (NEGATIVE); *BARBITURATES SCREEN URINE NEGATIVE (NEGATIVE); *BENZODIAZEPINES SCREEN URINE NEGATIVE (NEGATIVE); *COCAINE SCREEN URINE PRESUMTIVE POSITIVE (NEGATIVE); METHADONE URINE SCREEN NEGATIVE (NEGATIVE)
[2019-05-25 04:37] LABS: CANNABINOID URINE SCREEN NEGATIVE (NEGATIVE); OPIATES URINE SCREEN NEGATIVE (NEGATIVE); PHENCYCLIDINE URINE SCREEN NEGATIVE (NEGATIVE)
[2019-05-25] MEDS ORDERED: KETOROLAC 15MG/ML VIAL IV ONE (04:45)
[2019-05-25 08:00] VITALS: BP 124/70
[2019-05-25 08:30] VITALS: BP 124/70
[2019-05-25] MEDS: FUROSEMIDE 40MG/4ML VIAL IVP SCH ×3 (09:45→11:38)
[2019-05-25] MEDS: KETOROLAC 30MG/ML VIAL IV PRN ×3 (11:04→17:14)
[2019-05-25 11:09] VITALS: BP 124/70
[2019-05-25 12:00] VITALS: BP 137/79
[2019-05-25] MEDS: IPRATROPIUM/ALBUTEROL 0.5-3(2.5)MG/3ML NEB HHN SCH ×4 (12:00→20:56)
[2019-05-25] MEDS: BUDESONIDE 0.5MG/2ML NEB HHN SCH ×3 (12:50→15:35)
[2019-05-25] MEDS ORDERED: MORPHINE SULFATE 2 MG/ML CPJ (NOT FOR IM USE) IV SCH (13:45)
[2019-05-25 16:00] VITALS: BP 135/81
[2019-05-25 17:57] LABS: CLARITY URINE CLEAR (CLEAR); COLOR URINE YELLOW (YELLOW); KETONES URINE NEGATIVE (NEGATIVE); LEUKOCYTE ESTERASE URINE NEGATIVE (NEGATIVE); NITRITE URINE NEGATIVE (NEGATIVE); OCCULT BLOOD URINE NEGATIVE (NEGATIVE); PROTEIN URINE NEGATIVE (NEGATIVE); SPECIFIC GRAVITY URINE 1.006 (1.005-1.030); UROBILINOGEN URINE 0.2 E.U./dL (0.2-1.0)
[2019-05-25 20:00] VITALS: BP 125/83
[2019-05-25] MEDS: ENOXAPARIN 30MG/0.3ML SYR SUBCUT SCH ×2 (20:45→20:47)
[2019-05-26] VITALS: BP 114/57
[2019-05-26 04:00] VITALS: BP 123/66
[2019-05-26] MEDS: IPRATROPIUM/ALBUTEROL 0.5-3(2.5)MG/3ML NEB HHN SCH ×7 (05:00→21:59)
[2019-05-26] MEDS: BUDESONIDE 0.5MG/2ML NEB HHN SCH ×3 (05:05→21:59)
[2019-05-26 08:00] VITALS: BP 128/78
[2019-05-26] MEDS: FUROSEMIDE 40MG/4ML VIAL IVP SCH (08:40)
[2019-05-26] MEDS: ASPIRIN 81MG TABLET PO SCH (08:40)
[2019-05-26] MEDS: ENOXAPARIN 30MG/0.3ML SYR SUBCUT SCH ×2 (08:41→20:47)
[2019-05-26] MEDS: KETOROLAC 30MG/ML VIAL IV PRN ×2 (08:41→20:58)
[2019-05-26 12:00] VITALS: BP 106/75
[2019-05-26] MEDS ORDERED: MORPHINE SULFATE 2 MG/ML CPJ (NOT FOR IM USE) IV NR (12:30)
[2019-05-26 16:00] VITALS: BP 150/99
[2019-05-26 20:00] VITALS: BP 126/86
[2019-05-27] VITALS (8 sets, daily range): BP systolic 96–162; BP diastolic 27–113
[2019-05-27] MEDS: IPRATROPIUM/ALBUTEROL 0.5-3(2.5)MG/3ML NEB HHN SCH ×6 (00:51→21:18)
[2019-05-27] MEDS: KETOROLAC 30MG/ML VIAL IV PRN ×2 (01:08→10:54)
[2019-05-27] MEDS: FUROSEMIDE 40MG/4ML VIAL IVP SCH (08:57)
[2019-05-27] MEDS: ASPIRIN 81MG TABLET PO SCH (08:57)
[2019-05-27] MEDS: ENOXAPARIN 30MG/0.3ML SYR SUBCUT SCH ×2 (09:00→20:24)
[2019-05-27] MEDS: BUDESONIDE 0.5MG/2ML NEB HHN SCH ×2 (09:03→21:18)
[2019-05-27] MEDS ORDERED: MORPHINE SULFATE 2 MG/ML CPJ (NOT FOR IM USE) IV SCH (12:15)
[2019-05-27] MEDS ORDERED: ATROPINE SULFATE 1MG/ML VIAL IV PRN (14:15)
[2019-05-27] MEDS ORDERED: VANCOMYCIN 2,000 MG in DEXT 5% WATER 500 ML IV SCH (15:00)
[2019-05-27 15:03] LABS: BASOPHILS % 0.5 % (0.0-2.0); EOSINOPHILS % 7.5 % (0.0-5.0); HEMATOCRIT. 36.6 % (42.0-52.0); HEMOGLOBIN. 12.6 g/dL (14.0-18.0); LYMPHOCYTES % 25.3 % (20.0-50.0); MEAN CORPUSCULAR HEMOGLOBIN 30.5 pg (28.0-32.0); MEAN PLATELET VOLUME 7.5 fl (7.4-10.4); MONOCYTES % 10.6 % (2.0-8.0); NEUTROPHILS % 56.1 % (40.0-76.0); PLATELET 398 x1000/uL (130-400); RED BLOOD CELL COUNT 4.12 mill/uL (4.7-6.1); RED CELL DISTRIBUTION WIDTH 15.6 % (11.6-14.6)
[2019-05-27 15:12] LABS: CHLORIDE 107 mEq/L (98-107)
[2019-05-27 15:23] LABS: CREATINE KINASE 148 IU/L (39-308)
[2019-05-27 15:27] LABS: CREATINE KINASE MB FRACTION 1.7 ng/mL (0.5-3.6)
[2019-05-27] MEDS: DIPHENHYDRAMINE 50MG CAPSULE PO PRN (22:20)
[2019-05-28] VITALS (12 sets, daily range): BP systolic 92–151; BP diastolic 39–98
[2019-05-28] MEDS: IPRATROPIUM/ALBUTEROL 0.5-3(2.5)MG/3ML NEB HHN SCH ×4 (01:25→13:30)
[2019-05-28] MEDS ORDERED: VANCOMYCIN 1250MG in DEXTROSE 5% WATER 250ML IV SCH (03:00)
[2019-05-28] MEDS: BUDESONIDE 0.5MG/2ML NEB HHN SCH (08:33)
[2019-05-28] MEDS: ENOXAPARIN 30MG/0.3ML SYR SUBCUT SCH (09:00)
[2019-05-28] MEDS: FUROSEMIDE 40MG/4ML VIAL IVP SCH (09:00)
[2019-05-28 10:07] LABS: BASOPHILS % 0.4 % (0.0-2.0); EOSINOPHILS % 7.2 % (0.0-5.0); HEMATOCRIT. 36.7 % (42.0-52.0); HEMOGLOBIN. 12.2 g/dL (14.0-18.0); LYMPHOCYTES % 21.9 % (20.0-50.0); MEAN CORPUSCULAR HEMOGLOBIN 29.7 pg (28.0-32.0); MEAN CORPUSCULAR VOLUME 89.5 fL (80.0-94.0); MEAN PLATELET VOLUME 7.6 fl (7.4-10.4); MONOCYTES % 9.2 % (2.0-8.0); NEUTROPHILS % 61.3 % (40.0-76.0); PLATELET 404 x1000/uL (130-400); RED BLOOD CELL COUNT 4.11 mill/uL (4.7-6.1); RED CELL DISTRIBUTION WIDTH 15.7 % (11.6-14.6)
[2019-05-28] MEDS: ASPIRIN 81MG TABLET PO SCH (10:08)
[2019-05-28] MEDS: AMOXICILLIN/POTASSIUM CLAVULANATE 875/125MG TAB PO SCH ×2 (10:08→21:21)
[2019-05-28 10:24] LABS: CHLORIDE 109 mEq/L (98-107)
[2019-05-28] MEDS ORDERED: LIDOCAINE HCL 1% 20ML VIAL (Pyxis) INJ ONE ×2 (10:40→14:14)
[2019-05-28] MEDS ORDERED: LINEZOLID 600 MG PREMIX 300 ML IV SCH (12:00)
[2019-05-28] MEDS ORDERED: SODIUM BICARBONATE 4% (2.4MEQ) 5ML VIAL IV ONE (14:13)
[2019-05-28] MEDS ORDERED: IPRATROPIUM/ALBUTEROL 0.5-3(2.5)MG/3ML NEB HHN PRN (15:30)
[2019-05-28] MEDS: LINEZOLID 600 MG PREMIX 300 ML IV SCH (16:13)
[2019-05-28] MEDS: MORPHINE SULFATE 2 MG/ML CPJ (NOT FOR IM USE) IV PRN ×2 (18:01→22:27)
[2019-05-28] MEDS: ENOXAPARIN 40MG/0.4ML SYR SUBCUT SCH (21:00)
[2019-05-28] MEDS: DIPHENHYDRAMINE 50MG CAPSULE PO PRN (21:21)
[2019-05-29] VITALS: BP 132/62
[2019-05-29 02:00] VITALS: BP 113/49
[2019-05-29] MEDS: MORPHINE SULFATE 2 MG/ML CPJ (NOT FOR IM USE) IV PRN ×3 (02:38→11:56)
[2019-05-29 04:00] VITALS: BP 113/69
[2019-05-29] MEDS: LINEZOLID 600 MG PREMIX 300 ML IV SCH (07:30)
[2019-05-29 08:05] VITALS: BP 133/74
[2019-05-29 08:27] LABS: BASOPHILS % 0.6 % (0.0-2.0); EOSINOPHILS % 7.3 % (0.0-5.0); HEMATOCRIT. 35.9 % (42.0-52.0); HEMOGLOBIN. 11.9 g/dL (14.0-18.0); LYMPHOCYTES % 24.5 % (20.0-50.0); MEAN CORPUSCULAR HEMOGLOBIN 29.7 pg (28.0-32.0); MEAN CORPUSCULAR VOLUME 89.9 fL (80.0-94.0); MEAN PLATELET VOLUME 7.8 fl (7.4-10.4); NEUTROPHILS % 55.6 % (40.0-76.0); PLATELET 363 x1000/uL (130-400); RED CELL DISTRIBUTION WIDTH 15.8 % (11.6-14.6)
[2019-05-29 08:31] LABS: CHLORIDE 109 mEq/L (98-107)
[2019-05-29] MEDS: ENOXAPARIN 40MG/0.4ML SYR SUBCUT SCH ×2 (09:00→21:00)
[2019-05-29] MEDS: AMOXICILLIN/POTASSIUM CLAVULANATE 875/125MG TAB PO SCH ×2 (09:25→23:32)
[2019-05-29] MEDS: FUROSEMIDE 40MG/4ML VIAL IVP SCH (09:25)
[2019-05-29] MEDS: ASPIRIN 81MG TABLET PO SCH (09:26)
[2019-05-29 12:00] VITALS: BP 143/59
[2019-05-29] MEDS: DOXYCYCLINE HYCLATE 100MG CAPSULE PO SCH (17:22)
[2019-05-29] MEDS: KETOROLAC 30MG/ML VIAL IV PRN (17:33)
[2019-05-29 18:22] VITALS: BP 135/85
[2019-05-30] VITALS (11 sets, daily range): BP systolic 111–141; BP diastolic 53–98
[2019-05-30] MEDS: KETOROLAC 30MG/ML VIAL IV PRN ×2 (00:26→06:44)
[2019-05-30 04:15] LABS: HIV SCREEN 4G Non Reactive (Non Reactive)
[2019-05-30 06:27] LABS: CHLORIDE 108 mEq/L (98-107)
[2019-05-30 06:31] LABS: BASOPHILS % 0.3 % (0.0-2.0); EOSINOPHILS % 7.8 % (0.0-5.0); HEMATOCRIT. 34.9 % (42.0-52.0); HEMOGLOBIN. 11.7 g/dL (14.0-18.0); LYMPHOCYTES % 21.9 % (20.0-50.0); MEAN CORPUSCULAR VOLUME 89.8 fL (80.0-94.0); MONOCYTES % 12.3 % (2.0-8.0); NEUTROPHILS % 57.7 % (40.0-76.0); PLATELET 338 x1000/uL (130-400); RED BLOOD CELL COUNT 3.89 mill/uL (4.7-6.1); RED CELL DISTRIBUTION WIDTH 15.4 % (11.6-14.6)
[2019-05-30] MEDS: FUROSEMIDE 40MG/4ML VIAL IVP SCH (09:22)
[2019-05-30] MEDS: ASPIRIN 81MG TABLET PO SCH (09:23)
[2019-05-30] MEDS: AMOXICILLIN/POTASSIUM CLAVULANATE 875/125MG TAB PO SCH ×2 (09:23→20:35)
[2019-05-30] MEDS: ENOXAPARIN 40MG/0.4ML SYR SUBCUT SCH ×2 (09:23→20:35)
[2019-05-30] MEDS: DOXYCYCLINE HYCLATE 100MG CAPSULE PO SCH ×2 (09:23→17:20)
[2019-05-30] MEDS ORDERED: MORPHINE SULFATE 2 MG/ML CPJ (NOT FOR IM USE) IV NR (12:00)
[2019-05-30] MEDS ORDERED: HYDROCODONE/ACETAMINOPHEN 5/325MG TABLET PO PRN (22:00)
[2019-05-31] VITALS (10 sets, daily range): BP systolic 102–147; BP diastolic 52–85
[2019-05-31 05:40] LABS: CHLORIDE 107 mEq/L (98-107)
[2019-05-31 05:58] LABS: BASOPHILS % 0.6 % (0.0-2.0); EOSINOPHILS % 8.4 % (0.0-5.0); HEMATOCRIT. 33.6 % (42.0-52.0); HEMOGLOBIN. 11.4 g/dL (14.0-18.0); LYMPHOCYTES % 21.8 % (20.0-50.0); MEAN CORPUSCULAR HEMOGLOBIN 30.3 pg (28.0-32.0); MEAN CORPUSCULAR VOLUME 89.4 fL (80.0-94.0); MONOCYTES % 12.8 % (2.0-8.0); NEUTROPHILS % 56.4 % (40.0-76.0); PLATELET 318 x1000/uL (130-400); RED BLOOD CELL COUNT 3.76 mill/uL (4.7-6.1); RED CELL DISTRIBUTION WIDTH 15.6 % (11.6-14.6)
[2019-05-31] MEDS: ASPIRIN 81MG TABLET PO SCH (09:00)
[2019-05-31] MEDS: AMOXICILLIN/POTASSIUM CLAVULANATE 875/125MG TAB PO SCH (09:00)
[2019-05-31] MEDS: ENOXAPARIN 40MG/0.4ML SYR SUBCUT SCH (09:00)
[2019-05-31] MEDS: FUROSEMIDE 40MG/4ML VIAL IVP SCH (09:00)
[2019-05-31] MEDS: DOXYCYCLINE HYCLATE 100MG CAPSULE PO SCH ×2 (09:00→18:10)
[2019-05-31] MEDS ORDERED: MORPHINE SULFATE 2 MG/ML CPJ (NOT FOR IM USE) IV NR (10:30)
== END 2019-05-31 21:45 | DRG 720 ==
LOC: ER 01:53 → 5WST 03:58 → ENRESERV 07:00 → 5EST 05-27 16:26
PROVIDERS: ADMIT Internal Medicine; ATTEND Internal Medicine
PROC: 02HV33Z Insertion of Infusion Device into Superior Vena Cava, Percutaneous Approach (ICD-10-PCS; principal; 2019-05-28)
PROC: B548ZZA Ultrasonography of Superior Vena Cava, Guidance (ICD-10-PCS; 2019-05-28)
PROC: B5181ZA Fluoroscopy of Superior Vena Cava using Low Osmolar Contrast, Guidance (ICD-10-PCS; 2019-05-28)
PROC: 5A09357 Assistance with Respiratory Ventilation, Less than 24 Consecutive Hours, Continuous Positive Airway Pressure (ICD-10-PCS; 2019-05-28)
PROC: 5A09357 Assistance with Respiratory Ventilation, Less than 24 Consecutive Hours, Continuous Positive Airway Pressure (ICD-10-PCS; 2019-05-31)
DX: A41.89 Other specified sepsis (principal); J96.00 Acute respiratory failure, unspecified whether with hypoxia or hypercapnia; I50.33 Acute on chronic diastolic (congestive) heart failure; I47.2 Ventricular tachycardia; E66.2 Morbid (severe) obesity with alveolar hypoventilation; E87.8 Other disorders of electrolyte and fluid balance, not elsewhere classified; D64.9 Anemia, unspecified; E11.9 Type 2 diabetes mellitus without complications; I49.5 Sick sinus syndrome; I69.354 Hemiplegia and hemiparesis following cerebral infarction affecting left non-dominant side; D72.829 Elevated white blood cell count, unspecified; Z76.5 Malingerer [conscious simulation]; I11.0 Hypertensive heart disease with heart failure; J44.9 Chronic obstructive pulmonary disease, unspecified; L05.91 Pilonidal cyst without abscess; F14.10 Cocaine abuse, uncomplicated; G40.909 Epilepsy, unspecified, not intractable, without status epilepticus; E78.00 Pure hypercholesterolemia, unspecified; E78.5 Hyperlipidemia, unspecified; F12.10 Cannabis abuse, uncomplicated; F41.8 Other specified anxiety disorders; M47.816 Spondylosis without myelopathy or radiculopathy, lumbar region; F32.9 Major depressive disorder, single episode, unspecified; F99 Mental disorder, not otherwise specified; G89.29 Other chronic pain; M54.9 Dorsalgia, unspecified; Z60.2 Problems related to living alone; G90.8 Other disorders of autonomic nervous system; Z16.21 Resistance to vancomycin; B96.89 Other specified bacterial agents as the cause of diseases classified elsewhere; Z59.0 Homelessness; Z88.8 Allergy status to other drugs, medicaments and biological substances; Z79.899 Other long term (current) drug therapy; Z71.3 Dietary counseling and surveillance; Z71.51 Drug abuse counseling and surveillance of drug abuser; Z68.42 Body mass index [BMI] 45.0-49.9, adult
CPT/HCPCS: 36415; 36573; 71045; 73560; 80048; 80305; 80320; 81003; 82550; 82553; 83036; 83605; 83735; 83880; 84145; 84443; 84484; 85379; 87070; 87389; 93005; 93306; 93970; 94640; 96374; 97110; 97116; 97162; 97166; 97535; 99285; C1725; J1650; J1885; J1940; J2020; J2270; J3370; J3490; J7060; J7620; J7626; Q0163; G0480

== ENCOUNTER 2019-07-02 15:16 | Inpatient (IN) | payer MEDICAID ==
[~2019-07-02] VITALS: Ht 175.3 cm; Wt 120.2 kg
[~2019-07-02 15:16] MED LIST changes: +ASPI-1393 PO; -QUET25TA PO
[2019-07-02] MEDS ORDERED: ALBUTEROL (0.083%) 2.5MG/3ML NEB HHN STA (16:07)
[2019-07-02 16:45] LABS: BASOPHILS % 0.9 % (0.0-2.0); EOSINOPHILS % 3.4 % (0.0-5.0); HEMATOCRIT. 36.4 % (42.0-52.0); LYMPHOCYTES % 23.4 % (20.0-50.0); MEAN CORPUSCULAR HEMOGLOBIN 29.3 pg (28.0-32.0); MEAN CORPUSCULAR VOLUME 88.9 fL (80.0-94.0); MEAN PLATELET VOLUME 7.6 fl (7.4-10.4); MONOCYTES % 9.2 % (2.0-8.0); NEUTROPHILS % 63.1 % (40.0-76.0); PLATELET 412 x1000/uL (130-400); RED BLOOD CELL COUNT 4.09 mill/uL (4.7-6.1); RED CELL DISTRIBUTION WIDTH 14.9 % (11.6-14.6)
[2019-07-02] MEDS ORDERED: ACETAMINOPHEN 325MG TABLET PO ONE (16:45)
[2019-07-02 16:46] LABS: CHLORIDE 109 mEq/L (98-107)
[2019-07-02] MEDS ORDERED: ASPIRIN 325MG TABLET PO ONE (17:30)
[2019-07-02] MEDS ORDERED: LORAZEPAM 2MG/ML CPJ IV ONE (18:30)
[2019-07-02] MEDS ORDERED: AZITHROMYCIN 500 MG in DEXT 5% WATER 250 ML IV ONE (19:00)
[2019-07-02] MEDS ORDERED: ENOXAPARIN 80MG/0.8ML SYR SUBCUT ONE (19:00)
[2019-07-02] MEDS ORDERED: CEFTRIAXONE 2 G PREMIX 50 ML IV ONE (19:00)
[2019-07-02] MEDS ORDERED: IPRATROPIUM/ALBUTEROL 0.5-3(2.5)MG/3ML NEB HHN PRN (19:15)
[2019-07-02] MEDS ORDERED: MAGNESIUM/ALUMINUM HYDROXIDE/SIMETHICONE 30ML UDC PO PRN (19:15)
[2019-07-02] MEDS ORDERED: GUAIFENESIN 200MG/10ML SUGAR FREE UDC PO PRN (19:15)
[2019-07-02] MEDS ORDERED: ACETAMINOPHEN 325MG TABLET PO PRN (19:15)
[2019-07-02] MEDS ORDERED: CLONIDINE 0.1MG TABLET PO PRN (19:15)
[2019-07-02] MEDS ORDERED: ONDANSETRON HCL 4MG/2ML INJ IV PRN (19:15)
[2019-07-02] MEDS ORDERED: DOCUSATE SODIUM 100MG CAPSULE PO PRN (19:15)
[2019-07-02 20:37] LABS: PHOSPHORUS 3.1 mg/dL (2.5-4.9)
[2019-07-02] MEDS ORDERED: IOHEXOL-350 100 ML BOTTLE ONE (20:43)
[2019-07-02 22:30] VITALS: BP 123/72
[2019-07-02] MEDS: ENOXAPARIN 40MG/0.4ML SYR SUBCUT SCH (22:30)
[2019-07-03] MEDS: DIPHENHYDRAMINE 50MG/ML VIAL IV PRN ×2 (00:40→09:25)
[2019-07-03] MEDS ORDERED: DEXTROSE 50% WATER 50ML SYRINGE IV PRN (02:30)
[2019-07-03 02:40] VITALS: BP 110/61
[2019-07-03] MEDS: MORPHINE SULFATE 2 MG/ML CPJ (NOT FOR IM USE) IV PRN ×4 (02:40→20:34)
[2019-07-03 04:00] VITALS: BP 101/70
[2019-07-03] MEDS ORDERED: BLOOD SUGAR DIAGNOSTIC STRIP TEST SCH (07:10)
[2019-07-03] MEDS: INSULIN LISPRO 100 UNITS/ML SUBCUT SCH ×4 (07:12→20:19)
[2019-07-03] MEDS: BLOOD SUGAR DIAGNOSTIC STRIP TEST SCH ×4 (07:12→20:19)
[2019-07-03] MEDS ORDERED: LORAZEPAM 2MG/ML CPJ IV PRN (07:15)
[2019-07-03 08:16] VITALS: BP 107/77
[2019-07-03] MEDS: AZITHROMYCIN 500 MG in DEXT 5% WATER 250 ML IV SCH (08:24)
[2019-07-03] MEDS: ENOXAPARIN 40MG/0.4ML SYR SUBCUT SCH (08:25)
[2019-07-03 10:20] LABS: BASOPHILS % 0.7 % (0.0-2.0); EOSINOPHILS % 3.7 % (0.0-5.0); HEMOGLOBIN. 11.9 g/dL (14.0-18.0); LYMPHOCYTES % 22.8 % (20.0-50.0); MEAN CORPUSCULAR HEMOGLOBIN 29.4 pg (28.0-32.0); MEAN PLATELET VOLUME 7.7 fl (7.4-10.4); MONOCYTES % 8.8 % (2.0-8.0); PLATELET 386 x1000/uL (130-400); RED BLOOD CELL COUNT 4.05 mill/uL (4.7-6.1); RED CELL DISTRIBUTION WIDTH 15.1 % (11.6-14.6)
[2019-07-03 10:34] LABS: CHLORIDE 110 mEq/L (98-107)
[2019-07-03 10:44] LABS: LDL CHOLESTEROL 145 mg/dL (5-100)
[2019-07-03 10:45] LABS: HDL CHOLESTEROL 28 mg/dL (40-59)
[2019-07-03 12:13] VITALS: BP 106/57
[2019-07-03 16:13] VITALS: BP 131/54
[2019-07-03 20:00] VITALS: BP 107/55
[2019-07-03] MEDS: ENOXAPARIN 30MG/0.3ML SYR SUBCUT SCH (20:19)
[2019-07-03] MEDS: FLUTICASONE PROPIONATE 50MCG/SPRAY BOTTLE BOTHNSTRLS SCH (20:21)
[2019-07-03] MEDS: IPRATROPIUM/ALBUTEROL 0.5-3(2.5)MG/3ML NEB HHN SCH (20:26)
[2019-07-04] VITALS: BP 104/54
[2019-07-04] MEDS: MORPHINE SULFATE 2 MG/ML CPJ (NOT FOR IM USE) IV PRN ×3 (00:40→08:52)
[2019-07-04] MEDS: IPRATROPIUM/ALBUTEROL 0.5-3(2.5)MG/3ML NEB HHN SCH ×4 (01:42→20:01)
[2019-07-04 02:36] LABS: *BARBITURATES SCREEN URINE NEGATIVE (NEGATIVE); *COCAINE SCREEN URINE NEGATIVE (NEGATIVE)
[2019-07-04 02:37] LABS: *AMPHETAMINES SCREEN URINE NEGATIVE (NEGATIVE); *BENZODIAZEPINES SCREEN URINE NEGATIVE (NEGATIVE); CANNABINOID URINE SCREEN NEGATIVE (NEGATIVE); METHADONE URINE SCREEN NEGATIVE (NEGATIVE); PHENCYCLIDINE URINE SCREEN NEGATIVE (NEGATIVE)
[2019-07-04 02:38] LABS: OPIATES URINE SCREEN PRESUMTIVE POSITIVE (NEGATIVE)
[2019-07-04 04:00] VITALS: BP 107/52
[2019-07-04] MEDS: BLOOD SUGAR DIAGNOSTIC STRIP TEST SCH ×4 (05:50→20:29)
[2019-07-04] MEDS: INSULIN LISPRO 100 UNITS/ML SUBCUT SCH ×4 (07:01→20:29)
[2019-07-04 08:00] VITALS: BP_SYST 116; BP_SYST 117; BP_DIAS 55; BP_DIAS 61
[2019-07-04] MEDS: AZITHROMYCIN 500 MG in DEXT 5% WATER 250 ML IV SCH (08:57)
[2019-07-04] MEDS: FLUTICASONE PROPIONATE 50MCG/SPRAY BOTTLE BOTHNSTRLS SCH ×2 (09:00→20:28)
[2019-07-04] MEDS: ENOXAPARIN 30MG/0.3ML SYR SUBCUT SCH ×2 (09:00→20:30)
[2019-07-04] MEDS: DIPHENHYDRAMINE 50MG/ML VIAL IV PRN (11:07)
[2019-07-04 12:28] VITALS: BP 112/68
[2019-07-04 16:30] VITALS: BP 159/72
[2019-07-04] MEDS ORDERED: DIPHENHYDRAMINE 25MG CAPSULE PO PRN (18:00)
[2019-07-04 20:00] VITALS: BP 141/87
[2019-07-04] MEDS: HYDROCODONE/ACETAMINOPHEN 5/325MG TABLET PO PRN (20:28)
[2019-07-05] VITALS (7 sets, daily range): BP systolic 104–123; BP diastolic 53–90
[2019-07-05] MEDS: IPRATROPIUM/ALBUTEROL 0.5-3(2.5)MG/3ML NEB HHN SCH ×4 (02:05→20:44)
[2019-07-05] MEDS: HYDROCODONE/ACETAMINOPHEN 5/325MG TABLET PO PRN (03:10)
[2019-07-05] MEDS: BLOOD SUGAR DIAGNOSTIC STRIP TEST SCH ×4 (07:10→20:42)
[2019-07-05] MEDS: INSULIN LISPRO 100 UNITS/ML SUBCUT SCH ×4 (07:40→20:42)
[2019-07-05] MEDS: ENOXAPARIN 30MG/0.3ML SYR SUBCUT SCH ×2 (09:00→20:42)
[2019-07-05] MEDS: FLUTICASONE PROPIONATE 50MCG/SPRAY BOTTLE BOTHNSTRLS SCH ×2 (09:00→20:42)
[2019-07-05] MEDS ORDERED: AZITHROMYCIN 250 MG TABLET PO SCH (09:00)
== END 2019-07-05 22:20 | DRG 139 ==
LOC: ER 15:16 → 8WST 18:50 → EDBEDREQ 18:51 → ENRESERV 20:05
PROVIDERS: ADMIT Internal Medicine; ATTEND Internal Medicine
PROC: 5A09357 Assistance with Respiratory Ventilation, Less than 24 Consecutive Hours, Continuous Positive Airway Pressure (ICD-10-PCS; principal; 2019-07-03)
DX: J18.9 Pneumonia, unspecified organism (principal); J96.00 Acute respiratory failure, unspecified whether with hypoxia or hypercapnia; I11.0 Hypertensive heart disease with heart failure; E66.01 Morbid (severe) obesity due to excess calories; I50.9 Heart failure, unspecified; E11.9 Type 2 diabetes mellitus without complications; D64.9 Anemia, unspecified; I49.5 Sick sinus syndrome; J44.0 Chronic obstructive pulmonary disease with (acute) lower respiratory infection; J44.1 Chronic obstructive pulmonary disease with (acute) exacerbation; I69.354 Hemiplegia and hemiparesis following cerebral infarction affecting left non-dominant side; F14.10 Cocaine abuse, uncomplicated; F12.10 Cannabis abuse, uncomplicated; G40.909 Epilepsy, unspecified, not intractable, without status epilepticus; F99 Mental disorder, not otherwise specified; M47.816 Spondylosis without myelopathy or radiculopathy, lumbar region; F32.9 Major depressive disorder, single episode, unspecified; F41.9 Anxiety disorder, unspecified; R04.0 Epistaxis; R04.2 Hemoptysis; G47.33 Obstructive sleep apnea (adult) (pediatric); Z87.01 Personal history of pneumonia (recurrent); Z95.0 Presence of cardiac pacemaker; Z88.6 Allergy status to analgesic agent; Z79.899 Other long term (current) drug therapy
CPT/HCPCS: 36415; 71045; 80061; 80305; 82962; 83735; 83880; 84100; 84443; 84484; 93005; 93970; 94640; 94660; 99285; C1893; J0456; J0696; J1200; J1650; J1815; J2060; J2270; J7060; J7611; J7620; Q9967

== ENCOUNTER 2019-07-22 19:38 | Inpatient (IN) | payer MEDICAID ==
[~2019-07-22] VITALS: Ht 175.3 cm; Wt 147.4 kg
[2019-07-22] MEDS ORDERED: ACETAMINOPHEN 325MG TABLET PO STA (20:07)
[2019-07-22] MEDS ORDERED: ACETAMINOPHEN WITH CODEINE 300/30MG TABLET PO ONE (21:45)
[2019-07-22 22:06] LABS: BASOPHILS % 0.5 % (0.0-2.0); EOSINOPHILS % 0.2 % (0.0-5.0); HEMATOCRIT. 35.5 % (42.0-52.0); HEMOGLOBIN. 11.5 g/dL (14.0-18.0); LYMPHOCYTES % 8.7 % (20.0-50.0); MEAN CORPUSCULAR HEMOGLOBIN 28.1 pg (28.0-32.0); MEAN CORPUSCULAR VOLUME 86.5 fL (80.0-94.0); MEAN PLATELET VOLUME 7.6 fl (7.4-10.4); MONOCYTES % 7.4 % (2.0-8.0); NEUTROPHILS % 83.2 % (40.0-76.0); PLATELET 363 x1000/uL (130-400); RED CELL DISTRIBUTION WIDTH 16.9 % (11.6-14.6)
[2019-07-22] MEDS ORDERED: MORPHINE SULFATE 4 MG/ML CPJ (NOT FOR IM USE) IV ONE (22:15)
[2019-07-22] MEDS ORDERED: PIPERACILLIN/TAZ 3.375G PREMIX 50 ML IV ONE (22:45)
[2019-07-23 02:36] LABS: CLARITY URINE CLEAR (CLEAR); COLOR URINE YELLOW (YELLOW); KETONES URINE NEGATIVE (NEGATIVE); LEUKOCYTE ESTERASE URINE TRACE (NEGATIVE); NITRITE URINE NEGATIVE (NEGATIVE); OCCULT BLOOD URINE 2+ (NEGATIVE); PROTEIN URINE NEGATIVE (NEGATIVE); SPECIFIC GRAVITY URINE 1.014 (1.005-1.030)
[2019-07-23 09:40] VITALS: BP 141/70
[2019-07-23] MEDS ORDERED: INFLUENZA VIRUS VACCINE(AFLURIA) 0.5ML SYR IM ONE (11:15)
[2019-07-23] MEDS ORDERED: ACETAMINOPHEN 325MG TABLET PO PRN (11:30)
[2019-07-23] MEDS ORDERED: ONDANSETRON HCL 4MG/2ML INJ IV PRN (11:30)
[2019-07-23] MEDS ORDERED: CLONIDINE 0.1MG TABLET PO PRN (11:30)
[2019-07-23] MEDS ORDERED: NALOXONE HCL 0.4 MG/ML 1ML VIAL IV PRN (11:30)
[2019-07-23] MEDS ORDERED: DOCUSATE SODIUM 100MG CAPSULE PO PRN (11:30)
[2019-07-23] MEDS ORDERED: IPRATROPIUM/ALBUTEROL 0.5-3(2.5)MG/3ML NEB HHN PRN (11:30)
[2019-07-23 12:00] VITALS: BP 141/70
[2019-07-23] MEDS ORDERED: LORAZEPAM 2MG/ML CPJ IV SCH (12:15)
[2019-07-23] MEDS: MORPHINE SULFATE 2 MG/ML CPJ (NOT FOR IM USE) IV PRN ×2 (12:42→20:26)
[2019-07-23] MEDS ORDERED: PIPERACILLIN/TAZ 3.375G PREMIX 50 ML IV SCH (14:00)
[2019-07-23] MEDS: PIPERACILLIN/TAZOBACTAM 3.375 G in DEXT 5% WATER 100 ML IV SCH ×2 (14:00→21:38)
[2019-07-23] MEDS ORDERED: VANCOMYCIN 2,000 MG in DEXT 5% WATER 500 ML IV NR (14:00)
[2019-07-23] MEDS: FLUOXETINE HCL 20MG CAPSULE PO SCH (15:17)
[2019-07-23 16:00] VITALS: BP 147/85
[2019-07-23 16:03] LABS: CHLORIDE 110 mEq/L (98-107)
[2019-07-23] MEDS: DIPHENHYDRAMINE 50MG/ML VIAL IV PRN (18:45)
[2019-07-23 20:00] VITALS: BP 122/53
[2019-07-23] MEDS: ATORVASTATIN CALCIUM 20MG TABLET PO SCH (20:28)
[2019-07-24] VITALS: BP 140/86
[2019-07-24 04:00] VITALS: BP 108/69
[2019-07-24] MEDS: MORPHINE SULFATE 2 MG/ML CPJ (NOT FOR IM USE) IV PRN ×2 (04:05→16:31)
[2019-07-24] MEDS: PIPERACILLIN/TAZOBACTAM 3.375 G in DEXT 5% WATER 100 ML IV SCH ×3 (05:56→22:19)
[2019-07-24] MEDS: VANCOMYCIN 1500MG in DEXTROSE 5% WATER 250ML IV SCH ×2 (06:00→18:32)
[2019-07-24 08:00] VITALS: BP 110/64
[2019-07-24] MEDS: DIPHENHYDRAMINE 50MG/ML VIAL IV PRN ×2 (08:38→18:45)
[2019-07-24 12:00] VITALS: BP 115/79
[2019-07-24 12:23] LABS: BASOPHILS % 0.2 % (0.0-2.0); HEMATOCRIT. 37.3 % (42.0-52.0); HEMOGLOBIN. 12.2 g/dL (14.0-18.0); LYMPHOCYTES % 14.3 % (20.0-50.0); MEAN CORPUSCULAR HEMOGLOBIN 28.9 pg (28.0-32.0); MEAN CORPUSCULAR VOLUME 88.4 fL (80.0-94.0); MEAN PLATELET VOLUME 7.5 fl (7.4-10.4); MONOCYTES % 10.3 % (2.0-8.0); NEUTROPHILS % 72.2 % (40.0-76.0); PLATELET 367 x1000/uL (130-400); RED BLOOD CELL COUNT 4.21 mill/uL (4.7-6.1); RED CELL DISTRIBUTION WIDTH 14.8 % (11.6-14.6)
[2019-07-24 12:39] LABS: CHLORIDE 111 mEq/L (98-107)
[2019-07-24 12:45] LABS: TOTAL IRON BINDING CAPACITY 304 ug/dL (250-450)
[2019-07-24] MEDS: FLUOXETINE HCL 20MG CAPSULE PO SCH (13:05)
[2019-07-24 16:00] VITALS: BP 137/78
[2019-07-24 20:00] VITALS: BP 137/70
[2019-07-24] MEDS: ATORVASTATIN CALCIUM 20MG TABLET PO SCH (22:19)
[2019-07-24] MEDS: HYDROCODONE/ACETAMINOPHEN 5/325MG TABLET PO PRN (22:33)
[2019-07-25] VITALS: BP 117/70
[2019-07-25 04:00] VITALS: BP 129/68
[2019-07-25] MEDS: VANCOMYCIN 1500MG in DEXTROSE 5% WATER 250ML IV SCH ×2 (06:00→18:00)
[2019-07-25] MEDS: PIPERACILLIN/TAZOBACTAM 3.375 G in DEXT 5% WATER 100 ML IV SCH ×2 (06:00→14:00)
[2019-07-25] MEDS: FLUOXETINE HCL 20MG CAPSULE PO SCH (08:52)
[2019-07-25] MEDS: HYDROCODONE/ACETAMINOPHEN 5/325MG TABLET PO PRN (11:25)
[2019-07-25 16:00] VITALS: BP 138/82
[2019-07-25 20:00] VITALS: BP 128/56
[2019-07-25] MEDS: ATORVASTATIN CALCIUM 20MG TABLET PO SCH ×2 (21:18→21:21)
[2019-07-26 04:00] VITALS: BP 131/79
[2019-07-26 08:00] VITALS: BP 123/75
[2019-07-26] MEDS ORDERED: SODIUM BICARBONATE 4% (2.4MEQ) 5ML VIAL IV ONE (08:00)
[2019-07-26] MEDS ORDERED: LIDOCAINE HCL 1% 20ML VIAL (Pyxis) INJ ONE (08:01)
[2019-07-26] MEDS: MORPHINE SULFATE 2 MG/ML CPJ (NOT FOR IM USE) IV PRN ×4 (09:47→22:21)
[2019-07-26] MEDS: FLUOXETINE HCL 20MG CAPSULE PO SCH (09:54)
[2019-07-26] MEDS: DIPHENHYDRAMINE 50MG/ML VIAL IV PRN ×2 (11:21→19:42)
[2019-07-26 12:00] VITALS: BP 127/65
[2019-07-26] MEDS: SODIUM CHLORIDE 0.45% 1,000 ML IV SCH (12:31)
[2019-07-26] MEDS: PIPERACILLIN/TAZOBACTAM 3.375 G in DEXT 5% WATER 100 ML IV SCH ×2 (15:11→23:51)
[2019-07-26] MEDS: VANCOMYCIN 1500MG in DEXTROSE 5% WATER 250ML IV SCH (18:17)
[2019-07-26 20:00] VITALS: BP 135/73
[2019-07-26 20:28] LABS: CHLORIDE 106 mEq/L (98-107)
[2019-07-26 20:33] LABS: BASOPHILS % 0.1 % (0.0-2.0); EOSINOPHILS % 1.2 % (0.0-5.0); HEMATOCRIT. 37.5 % (42.0-52.0); LYMPHOCYTES % 7.5 % (20.0-50.0); MEAN CORPUSCULAR HEMOGLOBIN 28.2 pg (28.0-32.0); MEAN CORPUSCULAR VOLUME 87.8 fL (80.0-94.0); MEAN PLATELET VOLUME 7.5 fl (7.4-10.4); MONOCYTES % 9.5 % (2.0-8.0); NEUTROPHILS % 81.7 % (40.0-76.0); PLATELET 385 x1000/uL (130-400); RED BLOOD CELL COUNT 4.27 mill/uL (4.7-6.1); RED CELL DISTRIBUTION WIDTH 14.6 % (11.6-14.6)
[2019-07-26] MEDS: ATORVASTATIN CALCIUM 20MG TABLET PO SCH (20:45)
[2019-07-26] MEDS ORDERED: DIATR MEGLU/DIATRIZOATE SOLN 30ML PO NR (21:00)
[2019-07-26] MEDS: ENOXAPARIN 40MG/0.4ML SYR SUBCUT SCH (21:00)
[2019-07-26] MEDS ORDERED: POTASSIUM CHLORIDE 20MEQ TABLET SR PO NR (21:15)
[2019-07-27] VITALS: BP 136/60
[2019-07-27] MEDS: LORAZEPAM 2MG/ML CPJ IV PRN ×2 (00:18→11:18)
[2019-07-27] MEDS: MORPHINE SULFATE 2 MG/ML CPJ (NOT FOR IM USE) IV PRN ×4 (03:46→20:01)
[2019-07-27 04:00] VITALS: BP 128/73
[2019-07-27 06:16] LABS: *AMPHETAMINES SCREEN URINE NEGATIVE (NEGATIVE); *BARBITURATES SCREEN URINE NEGATIVE (NEGATIVE); *BENZODIAZEPINES SCREEN URINE NEGATIVE (NEGATIVE); *COCAINE SCREEN URINE PRESUMTIVE POSITIVE (NEGATIVE); METHADONE URINE SCREEN NEGATIVE (NEGATIVE); OPIATES URINE SCREEN PRESUMTIVE POSITIVE (NEGATIVE)
[2019-07-27 06:18] LABS: CANNABINOID URINE SCREEN NEGATIVE (NEGATIVE); PHENCYCLIDINE URINE SCREEN NEGATIVE (NEGATIVE)
[2019-07-27] MEDS: PIPERACILLIN/TAZOBACTAM 3.375 G in DEXT 5% WATER 100 ML IV SCH ×2 (06:21→14:45)
[2019-07-27] MEDS: DIPHENHYDRAMINE 50MG/ML VIAL IV PRN ×2 (06:37→20:10)
[2019-07-27] MEDS: VANCOMYCIN 1500MG in DEXTROSE 5% WATER 250ML IV SCH ×2 (07:01→20:00)
[2019-07-27] MEDS: SODIUM CHLORIDE 0.45% 1,000 ML IV SCH ×2 (07:01→08:30)
[2019-07-27 08:00] VITALS: BP 135/60
[2019-07-27 08:06] LABS: HEMATOCRIT. 35.9 % (42.0-52.0); HEMOGLOBIN. 11.7 g/dL (14.0-18.0); MEAN CORPUSCULAR HEMOGLOBIN 28.5 pg (28.0-32.0); MEAN CORPUSCULAR VOLUME 87.7 fL (80.0-94.0); MEAN PLATELET VOLUME 7.7 fl (7.4-10.4); PLATELET 384 x1000/uL (130-400); RED BLOOD CELL COUNT 4.09 mill/uL (4.7-6.1); RED CELL DISTRIBUTION WIDTH 14.9 % (11.6-14.6)
[2019-07-27 08:27] LABS: CHLORIDE 105 mEq/L (98-107)
[2019-07-27] MEDS ORDERED: IOHEXOL-300 100 ML BOTTLE ONE (08:52)
[2019-07-27] MEDS: ENOXAPARIN 40MG/0.4ML SYR SUBCUT SCH ×3 (09:00→20:11)
[2019-07-27] MEDS: FLUOXETINE HCL 20MG CAPSULE PO SCH (09:56)
[2019-07-27] MEDS: POTASSIUM CHLORIDE 20MEQ TABLET SR PO SCH (11:19)
[2019-07-27 12:00] VITALS: BP 104/64
[2019-07-27 13:17] LABS: PLATELET ESTIMATE NORMAL
[2019-07-27 16:00] VITALS: BP 103/61
[2019-07-27 20:00] VITALS: BP 128/58
[2019-07-27] MEDS: ATORVASTATIN CALCIUM 20MG TABLET PO SCH (20:01)
[2019-07-28] VITALS: BP 130/42
[2019-07-28] MEDS: PIPERACILLIN/TAZOBACTAM 3.375 G in DEXT 5% WATER 100 ML IV SCH ×4 (00:01→22:55)
[2019-07-28] MEDS: MORPHINE SULFATE 2 MG/ML CPJ (NOT FOR IM USE) IV PRN ×4 (00:28→20:03)
[2019-07-28] MEDS: LORAZEPAM 2MG/ML CPJ IV PRN (02:51)
[2019-07-28 04:00] VITALS: BP 103/64
[2019-07-28] MEDS: DIPHENHYDRAMINE 50MG/ML VIAL IV PRN ×2 (06:56→17:50)
[2019-07-28 08:00] VITALS: BP 108/59
[2019-07-28] MEDS ORDERED: POTASSIUM CHLORIDE 20MEQ TABLET SR PO NR (08:15)
[2019-07-28] MEDS: FLUOXETINE HCL 20MG CAPSULE PO SCH (08:32)
[2019-07-28] MEDS: POTASSIUM CHLORIDE 20MEQ TABLET SR PO SCH (08:48)
[2019-07-28] MEDS: ENOXAPARIN 40MG/0.4ML SYR SUBCUT SCH ×2 (08:49→21:00)
[2019-07-28] MEDS: VANCOMYCIN 1500MG in DEXTROSE 5% WATER 250ML IV SCH ×2 (09:21→20:03)
[2019-07-28 12:00] VITALS: BP 103/58
[2019-07-28 16:00] VITALS: BP 113/64
[2019-07-28 20:00] VITALS: BP 119/55
[2019-07-28] MEDS: ATORVASTATIN CALCIUM 20MG TABLET PO SCH (20:03)
[2019-07-29] VITALS: BP 118/43
[2019-07-29] MEDS: MORPHINE SULFATE 2 MG/ML CPJ (NOT FOR IM USE) IV PRN ×5 (01:57→20:30)
[2019-07-29 04:00] VITALS: BP 110/50
[2019-07-29] MEDS: PIPERACILLIN/TAZOBACTAM 3.375 G in DEXT 5% WATER 100 ML IV SCH ×3 (06:09→22:44)
[2019-07-29 08:00] VITALS: BP 123/62
[2019-07-29] MEDS: VANCOMYCIN 1500MG in DEXTROSE 5% WATER 250ML IV SCH ×2 (08:08→20:31)
[2019-07-29] MEDS: ENOXAPARIN 40MG/0.4ML SYR SUBCUT SCH ×2 (09:00→20:50)
[2019-07-29] MEDS: POTASSIUM CHLORIDE 20MEQ TABLET SR PO SCH (09:22)
[2019-07-29] MEDS: FLUOXETINE HCL 20MG CAPSULE PO SCH (09:23)
[2019-07-29 11:38] LABS: BASOPHILS % 0.3 % (0.0-2.0); EOSINOPHILS % 4.1 % (0.0-5.0); HEMATOCRIT. 38.2 % (42.0-52.0); HEMOGLOBIN. 12.5 g/dL (14.0-18.0); LYMPHOCYTES % 14.6 % (20.0-50.0); MEAN CORPUSCULAR HEMOGLOBIN 28.5 pg (28.0-32.0); MEAN CORPUSCULAR VOLUME 87.1 fL (80.0-94.0); MEAN PLATELET VOLUME 7.7 fl (7.4-10.4); MONOCYTES % 9.8 % (2.0-8.0); NEUTROPHILS % 71.2 % (40.0-76.0); PLATELET 422 x1000/uL (130-400); RED BLOOD CELL COUNT 4.39 mill/uL (4.7-6.1); RED CELL DISTRIBUTION WIDTH 14.3 % (11.6-14.6)
[2019-07-29 12:00] VITALS: BP 135/78
[2019-07-29 12:21] LABS: CHLORIDE 107 mEq/L (98-107)
[2019-07-29] MEDS ORDERED: LORAZEPAM 0.5MG TABLET PO PRN (12:45)
[2019-07-29 16:00] VITALS: BP 137/78
[2019-07-29 20:00] VITALS: BP 124/75
[2019-07-29] MEDS: ATORVASTATIN CALCIUM 20MG TABLET PO SCH (20:31)
[2019-07-29] MEDS: DIPHENHYDRAMINE 50MG/ML VIAL IV PRN (20:42)
[2019-07-30] VITALS: BP 138/88
[2019-07-30] MEDS: MORPHINE SULFATE 2 MG/ML CPJ (NOT FOR IM USE) IV PRN ×5 (00:41→20:21)
[2019-07-30 04:00] VITALS: BP 114/60
[2019-07-30] MEDS: PIPERACILLIN/TAZOBACTAM 3.375 G in DEXT 5% WATER 100 ML IV SCH ×2 (05:21→15:15)
[2019-07-30 08:00] VITALS: BP 115/62
[2019-07-30] MEDS: VANCOMYCIN 1500MG in DEXTROSE 5% WATER 250ML IV SCH (08:48)
[2019-07-30] MEDS: FLUOXETINE HCL 20MG CAPSULE PO SCH (08:50)
[2019-07-30] MEDS: POTASSIUM CHLORIDE 20MEQ TABLET SR PO SCH (08:50)
[2019-07-30] MEDS: ENOXAPARIN 40MG/0.4ML SYR SUBCUT SCH ×2 (08:57→21:00)
[2019-07-30] MEDS: DIPHENHYDRAMINE 50MG/ML VIAL IV PRN ×3 (11:29→21:24)
[2019-07-30 16:00] VITALS: BP 150/74
[2019-07-30] MEDS ORDERED: PIPERACILLIN/TAZOBACTAM 3.375 G in DEXT 5% WATER 100 ML IV SCH ×2 (16:30→22:00)
[2019-07-30 20:33] VITALS: BP 151/92
[2019-07-30] MEDS: ATORVASTATIN CALCIUM 20MG TABLET PO SCH (21:24)
== END 2019-07-30 23:29 | DRG 720 ==
LOC: ER 19:38 → 6EST 23:48 → EDBEDREQSVC 23:56 → EDBEDREQTM 23:56 → EDBEDREQ 23:57 → CANRESERV 07-23 00:15 → ENRESERV 07-23 00:15 → CANRESERV 07-23 07:02
PROVIDERS: ADMIT Internal Medicine; ATTEND Internal Medicine
PROC: 02HV33Z Insertion of Infusion Device into Superior Vena Cava, Percutaneous Approach (ICD-10-PCS; principal; 2019-07-26)
PROC: B5181ZA Fluoroscopy of Superior Vena Cava using Low Osmolar Contrast, Guidance (ICD-10-PCS; 2019-07-26)
PROC: B548ZZA Ultrasonography of Superior Vena Cava, Guidance (ICD-10-PCS; 2019-07-26)
DX: A41.9 Sepsis, unspecified organism (principal); I49.5 Sick sinus syndrome; I11.0 Hypertensive heart disease with heart failure; I50.32 Chronic diastolic (congestive) heart failure; Z68.42 Body mass index [BMI] 45.0-49.9, adult; D64.9 Anemia, unspecified; E11.9 Type 2 diabetes mellitus without complications; E66.9 Obesity, unspecified; E78.5 Hyperlipidemia, unspecified; F32.9 Major depressive disorder, single episode, unspecified; G47.33 Obstructive sleep apnea (adult) (pediatric); L05.01 Pilonidal cyst with abscess; F41.1 Generalized anxiety disorder; J44.9 Chronic obstructive pulmonary disease, unspecified; R94.31 Abnormal electrocardiogram [ECG] [EKG]; R31.9 Hematuria, unspecified; F12.10 Cannabis abuse, uncomplicated; F14.10 Cocaine abuse, uncomplicated; Z71.3 Dietary counseling and surveillance; Z87.01 Personal history of pneumonia (recurrent); Z86.73 Personal history of transient ischemic attack (TIA), and cerebral infarction without residual deficits; Z95.0 Presence of cardiac pacemaker; Z91.19 Patient's noncompliance with other medical treatment and regimen; Z79.82 Long term (current) use of aspirin; Z79.899 Other long term (current) drug therapy; Z88.8 Allergy status to other drugs, medicaments and biological substances; Z91.018 Allergy to other foods
CPT/HCPCS: 36415; 36573; 74177; 80048; 80305; 81003; 82728; 82962; 83540; 83550; 83605; 84145; 87070; 87804; 93005; 97161; 97166; 99285; C1725; J1200; J1650; J2060; J2270; J2405; J2543; J3370; J3490; J7040; J7050; J7060; Q9963; Q9967

== ENCOUNTER 2019-08-22 23:33 | Emergency (ER) | payer MEDICAID ==
[~2019-08-22] VITALS: Ht 175.3 cm; Wt 125.0 kg
[2019-08-23] MEDS ORDERED: NITROGLYCERIN 0.4MG TABLET SL SL PRN (00:45)
[2019-08-23] MEDS ORDERED: ASPIRIN 81MG TABLET PO ONE (00:45)
[2019-08-23 01:17] LABS: CHLORIDE 102 mEq/L (98-107)
[2019-08-23 01:33] LABS: BASOPHILS % 0.6 % (0.0-2.0); EOSINOPHILS % 4.2 % (0.0-5.0); HEMATOCRIT. 36.6 % (42.0-52.0); HEMOGLOBIN. 12.2 g/dL (14.0-18.0); LYMPHOCYTES % 22.5 % (20.0-50.0); MEAN CORPUSCULAR VOLUME 87.3 fL (80.0-94.0); MEAN PLATELET VOLUME 7.7 fl (7.4-10.4); MONOCYTES % 9.9 % (2.0-8.0); NEUTROPHILS % 62.8 % (40.0-76.0); PLATELET 394 x1000/uL (130-400); RED BLOOD CELL COUNT 4.19 mill/uL (4.7-6.1); RED CELL DISTRIBUTION WIDTH 15.8 % (11.6-14.6)
[2019-08-23] MEDS ORDERED: TRAMADOL 50MG TABLET PO ONE (09:45)
[2019-08-23 18:42] VITALS: BP 116/74
== END 2019-08-23 18:43 | disposition home or self-care (01) ==
LOC: ER 23:33
DX: G89.29 Other chronic pain (principal); R07.89 Other chest pain; R51 Headache; I11.0 Hypertensive heart disease with heart failure; I50.9 Heart failure, unspecified; J44.9 Chronic obstructive pulmonary disease, unspecified; E11.9 Type 2 diabetes mellitus without complications; E66.01 Morbid (severe) obesity due to excess calories; Z68.42 Body mass index [BMI] 45.0-49.9, adult; Z86.73 Personal history of transient ischemic attack (TIA), and cerebral infarction without residual deficits; Z88.6 Allergy status to analgesic agent; Z59.0 Homelessness; Z75.1 Person awaiting admission to adequate facility elsewhere
CPT/HCPCS: 36415; 71045; 80053; 83880; 84484; 85025; 93005; 99284; Z7610

== ENCOUNTER 2019-10-29 22:36 | Emergency (ER) | payer MEDICAID ==
[~2019-10-29] VITALS: Ht 172.7 cm; Wt 127.0 kg
[~2019-10-29 22:36] MED LIST changes: -ASPI-1393 PO; +ASPI-1497 PO
[2019-10-30] MEDS ORDERED: ACETAMINOPHEN 325MG TABLET PO ONE (00:30)
[2019-10-30 02:03] VITALS: BP 144/79
== END 2019-10-30 02:05 | disposition home or self-care (01) ==
LOC: ER 22:36
DX: L05.91 Pilonidal cyst without abscess (principal); I11.0 Hypertensive heart disease with heart failure; I50.9 Heart failure, unspecified; F32.9 Major depressive disorder, single episode, unspecified; F41.9 Anxiety disorder, unspecified; J44.9 Chronic obstructive pulmonary disease, unspecified; Z86.73 Personal history of transient ischemic attack (TIA), and cerebral infarction without residual deficits; Z88.6 Allergy status to analgesic agent; Z95.0 Presence of cardiac pacemaker; Z79.82 Long term (current) use of aspirin
CPT/HCPCS: 99283; Z7610

== ENCOUNTER 2019-12-15 02:15 | Inpatient (IN) | payer MEDICAID ==
[~2019-12-15] VITALS: Ht 177.8 cm; Wt 156.9 kg
[2019-12-15] MEDS ORDERED: IPRATROPIUM BROMIDE (0.02%) 0.5MG/2.5ML NEB HHN STA (02:21)
[2019-12-15] MEDS ORDERED: ALBUTEROL (0.083%) 2.5MG/3ML NEB HHN STA (02:21)
[2019-12-15] MEDS ORDERED: NITROGLYCERIN 50MG PREMIX 250 ML IV ONE (02:30)
[2019-12-15] MEDS ORDERED: FUROSEMIDE 40MG/4ML VIAL IV ONE (02:30)
[2019-12-15] MEDS ORDERED: ACETAMINOPHEN 500MG TABLET PO ONE (02:45)
[2019-12-15 03:09] LABS: HEMATOCRIT. 37.4 % (42.0-52.0); HEMOGLOBIN. 12.6 g/dL (14.0-18.0); MEAN CORPUSCULAR HEMOGLOBIN 29.7 pg (28.0-32.0); MEAN CORPUSCULAR VOLUME 88.4 fL (80.0-94.0); MEAN PLATELET VOLUME 7.3 fl (7.4-10.4); PLATELET 443 x1000/uL (130-400); RED BLOOD CELL COUNT 4.24 mill/uL (4.7-6.1); RED CELL DISTRIBUTION WIDTH 16.3 % (11.6-14.6)
[2019-12-15 03:12] LABS: CHLORIDE 100 mEq/L (98-107)
[2019-12-15 03:53] LABS: PLATELET ESTIMATE SLIGHTLY INCREASED
[2019-12-15] MEDS ORDERED: CEFTRIAXONE 1 G PREMIX 50 ML IV SCH (05:00)
[2019-12-15] MEDS ORDERED: AZITHROMYCIN 500 MG in DEXT 5% WATER 250 ML IV SCH (06:00)
[2019-12-15] MEDS ORDERED: ACETAMINOPHEN 325MG TABLET PO PRN (10:15)
[2019-12-15] MEDS ORDERED: ONDANSETRON HCL 4MG/2ML INJ IV PRN (10:15)
[2019-12-15 10:22] VITALS: BP 108/62
[2019-12-15 10:24] VITALS: BP 108/62
[2019-12-15] MEDS: FUROSEMIDE 40MG/4ML VIAL IVP SCH ×2 (10:59→18:20)
[2019-12-15] MEDS: CEFTRIAXONE 1 G PREMIX 50 ML IV SCH (11:49)
[2019-12-15] MEDS: DIPHENHYDRAMINE 25MG CAPSULE PO PRN (11:50)
[2019-12-15 12:00] VITALS: BP 112/73
[2019-12-15] MEDS: HYDROCODONE/ACETAMINOPHEN 10/325MG TABLET PO PRN ×2 (12:08→18:19)
[2019-12-15 14:34] LABS: *AMPHETAMINES SCREEN URINE NEGATIVE (NEGATIVE); *BARBITURATES SCREEN URINE NEGATIVE (NEGATIVE); *BENZODIAZEPINES SCREEN URINE NEGATIVE (NEGATIVE); *COCAINE SCREEN URINE PRESUMTIVE POSITIVE (NEGATIVE); CANNABINOID URINE SCREEN NEGATIVE (NEGATIVE); METHADONE URINE SCREEN NEGATIVE (NEGATIVE); OPIATES URINE SCREEN NEGATIVE (NEGATIVE); PHENCYCLIDINE URINE SCREEN NEGATIVE (NEGATIVE)
[2019-12-15] MEDS ORDERED: IPRATROPIUM BROMIDE (0.02%) 0.5MG/2.5ML NEB HHN SCH (15:00)
[2019-12-15 16:00] VITALS: BP 108/77
[2019-12-15] MEDS: DILTIAZEM HCL 60MG TABLET PO SCH (16:17)
[2019-12-15] MEDS ORDERED: VERAPAMIL HCL 2.5 MG/1 ML 2ML VIAL IV PRN (18:15)
[2019-12-15] MEDS: METHYLPREDNISOLONE SOD SUCC 40 MG/ML VIAL IV SCH (18:15)
[2019-12-15] MEDS: DULOXETINE HCL 20MG DR CAPSULE PO SCH (18:16)
[2019-12-15] MEDS: DIGOXIN 500MCG/2ML AMP IV SCH (18:25)
[2019-12-15] MEDS ORDERED: DEXTROSE 50% WATER 50ML SYRINGE IV PRN (19:30)
[2019-12-15 20:00] VITALS: BP 123/77
[2019-12-15] MEDS ORDERED: METOLAZONE 2.5MG TABLET PO NR (20:00)
[2019-12-15] MEDS: INSULIN LISPRO 100 UNITS/ML SUBCUT SCH (20:44)
[2019-12-15] MEDS: BLOOD SUGAR DIAGNOSTIC STRIP TEST SCH (20:45)
[2019-12-16] VITALS (7 sets, daily range): BP systolic 103–145; BP diastolic 60–85
[2019-12-16] MEDS: BUDESONIDE 0.5MG/2ML NEB HHN SCH ×3 (00:36→20:59)
[2019-12-16] MEDS: IPRATROPIUM BROMIDE (0.02%) 0.5MG/2.5ML NEB HHN SCH ×6 (00:37→20:59)
[2019-12-16] MEDS: METHYLPREDNISOLONE SOD SUCC 40 MG/ML VIAL IV SCH ×3 (01:00→21:02)
[2019-12-16] MEDS: DILTIAZEM HCL 60MG TABLET PO SCH ×2 (04:30)
[2019-12-16] MEDS: AZITHROMYCIN 500 MG in DEXT 5% WATER 250 ML IV SCH (05:00)
[2019-12-16] MEDS: DIPHENHYDRAMINE 25MG CAPSULE PO PRN ×3 (05:21→21:38)
[2019-12-16] MEDS: INSULIN LISPRO 100 UNITS/ML SUBCUT SCH ×4 (08:00→21:00)
[2019-12-16] MEDS: BLOOD SUGAR DIAGNOSTIC STRIP TEST SCH ×3 (08:22→21:46)
[2019-12-16] MEDS: APIXABAN 5 MG TABLET PO SCH ×2 (08:24→17:00)
[2019-12-16] MEDS: DULOXETINE HCL 20MG DR CAPSULE PO SCH ×2 (08:24→21:38)
[2019-12-16] MEDS ORDERED: METOLAZONE 2.5MG TABLET PO SCH (09:00)
[2019-12-16] MEDS: FUROSEMIDE 40MG/4ML VIAL IVP SCH ×2 (09:18→21:00)
[2019-12-16] MEDS: DILTIAZEM HCL 90MG TABLET PO SCH ×2 (09:19→18:00)
[2019-12-16 10:09] LABS: BASOPHILS % 0.2 % (0.0-2.0); HEMATOCRIT. 37.6 % (42.0-52.0); HEMOGLOBIN. 12.6 g/dL (14.0-18.0); LYMPHOCYTES % 7.7 % (20.0-50.0); MEAN CORPUSCULAR HEMOGLOBIN 29.5 pg (28.0-32.0); MEAN CORPUSCULAR VOLUME 87.9 fL (80.0-94.0); MEAN PLATELET VOLUME 7.4 fl (7.4-10.4); MONOCYTES % 6.6 % (2.0-8.0); NEUTROPHILS % 85.5 % (40.0-76.0); PLATELET 445 x1000/uL (130-400); RED BLOOD CELL COUNT 4.27 mill/uL (4.7-6.1); RED CELL DISTRIBUTION WIDTH 15.9 % (11.6-14.6)
[2019-12-16 10:15] LABS: CHLORIDE 104 mEq/L (98-107)
[2019-12-16] MEDS: CEFTRIAXONE 1 G PREMIX 50 ML IV SCH (11:06)
[2019-12-16] MEDS ORDERED: MORPHINE SULFATE 2 MG/ML CPJ (NOT FOR IM USE) IV PRN (14:45)
[2019-12-16] MEDS: DIGOXIN 500MCG/2ML AMP IV SCH (21:01)
[2019-12-16] MEDS: MORPHINE SULFATE 2 MG/ML CPJ (NOT FOR IM USE) IV PRN (21:39)
[2019-12-17] VITALS: BP 91/64
[2019-12-17] MEDS: IPRATROPIUM BROMIDE (0.02%) 0.5MG/2.5ML NEB HHN SCH ×6 (00:15→20:30)
[2019-12-17] MEDS: METHYLPREDNISOLONE SOD SUCC 40 MG/ML VIAL IV SCH ×3 (01:00→17:30)
[2019-12-17] MEDS ORDERED: DIPHENHYDRAMINE 50MG/ML VIAL IV PRN (01:45)
[2019-12-17] MEDS: LORAZEPAM 2MG/ML CPJ IV PRN (02:36)
[2019-12-17 04:00] VITALS: BP 129/81
[2019-12-17] MEDS: AZITHROMYCIN 500 MG in DEXT 5% WATER 250 ML IV SCH ×2 (05:23→06:00)
[2019-12-17] MEDS: DILTIAZEM HCL 90MG TABLET PO SCH ×5 (05:23→17:23)
[2019-12-17] MEDS: MORPHINE SULFATE 2 MG/ML CPJ (NOT FOR IM USE) IV PRN ×2 (05:24→10:38)
[2019-12-17] MEDS: FUROSEMIDE 40MG/4ML VIAL IVP SCH ×2 (05:25→17:29)
[2019-12-17] MEDS: BLOOD SUGAR DIAGNOSTIC STRIP TEST SCH ×4 (05:25→21:00)
[2019-12-17 07:31] LABS: MEAN CORPUSCULAR HEMOGLOBIN 29.1 pg (28.0-32.0); MEAN CORPUSCULAR VOLUME 87.4 fL (80.0-94.0); MEAN PLATELET VOLUME 7.9 fl (7.4-10.4); PLATELET 457 x1000/uL (130-400); RED BLOOD CELL COUNT 4.11 mill/uL (4.7-6.1); RED CELL DISTRIBUTION WIDTH 15.6 % (11.6-14.6)
[2019-12-17] MEDS: INSULIN LISPRO 100 UNITS/ML SUBCUT SCH ×4 (07:50→21:00)
[2019-12-17 08:03] VITALS: BP 145/75
[2019-12-17] MEDS: APIXABAN 5 MG TABLET PO SCH ×2 (08:28→17:00)
[2019-12-17] MEDS: AZITHROMYCIN 500 MG TABLET PO SCH (08:29)
[2019-12-17] MEDS: DULOXETINE HCL 20MG DR CAPSULE PO SCH ×2 (08:29→20:59)
[2019-12-17] MEDS: BUDESONIDE 0.5MG/2ML NEB HHN SCH ×2 (09:23→20:30)
[2019-12-17 12:00] VITALS: BP 118/70
[2019-12-17] MEDS: CEFTRIAXONE 1 G PREMIX 50 ML IV SCH (13:04)
[2019-12-17 13:48] LABS: CHLORIDE 99 mEq/L (98-107)
[2019-12-17 16:00] VITALS: BP 104/57
[2019-12-17 17:11] LABS: PLATELET ESTIMATE SLIGHTLY INCREASED
[2019-12-17] MEDS: DIGOXIN 500MCG/2ML AMP IV SCH (17:31)
[2019-12-17 20:00] VITALS: BP 131/78
[2019-12-17] MEDS: GUAIFENESIN 600MG ER TABLET PO SCH (20:59)
[2019-12-17] MEDS: FLUTICASONE PROPIONATE 50MCG/SPRAY BOTTLE BOTHNSTRLS SCH (21:00)
[2019-12-18] VITALS: BP 129/80
[2019-12-18] MEDS: IPRATROPIUM BROMIDE (0.02%) 0.5MG/2.5ML NEB HHN SCH ×7 (00:15→22:12)
[2019-12-18] MEDS: METHYLPREDNISOLONE SOD SUCC 40 MG/ML VIAL IV SCH ×3 (01:08→17:00)
[2019-12-18] MEDS: LORAZEPAM 2MG/ML CPJ IV PRN ×2 (01:08→18:34)
[2019-12-18 04:00] VITALS: BP 129/79
[2019-12-18] MEDS: FUROSEMIDE 40MG/4ML VIAL IVP SCH (05:32)
[2019-12-18] MEDS: DILTIAZEM HCL 90MG TABLET PO SCH ×5 (05:32→18:26)
[2019-12-18] MEDS: BLOOD SUGAR DIAGNOSTIC STRIP TEST SCH ×4 (06:23→21:00)
[2019-12-18] MEDS: INSULIN LISPRO 100 UNITS/ML SUBCUT SCH ×4 (06:24→21:00)
[2019-12-18 08:00] VITALS: BP 115/62
[2019-12-18] MEDS: FLUTICASONE PROPIONATE 50MCG/SPRAY BOTTLE BOTHNSTRLS SCH ×2 (08:27→21:00)
[2019-12-18] MEDS: AZITHROMYCIN 500 MG TABLET PO SCH ×2 (08:28→08:32)
[2019-12-18] MEDS: DULOXETINE HCL 20MG DR CAPSULE PO SCH ×3 (08:28→21:00)
[2019-12-18] MEDS: GUAIFENESIN 600MG ER TABLET PO SCH ×3 (08:28→21:00)
[2019-12-18] MEDS: APIXABAN 5 MG TABLET PO SCH ×3 (08:29→17:00)
[2019-12-18] MEDS: BUDESONIDE 0.5MG/2ML NEB HHN SCH (08:50)
[2019-12-18 12:00] VITALS: BP 154/81
[2019-12-18] MEDS: CEFTRIAXONE 1 G PREMIX 50 ML IV SCH (13:15)
[2019-12-18] MEDS: MORPHINE SULFATE 2 MG/ML CPJ (NOT FOR IM USE) IV PRN ×2 (14:23→22:15)
[2019-12-18 16:00] VITALS: BP 113/69
[2019-12-18] MEDS: DIGOXIN 500MCG/2ML AMP IV SCH (18:26)
[2019-12-18 20:00] VITALS: BP 143/85
[2019-12-19] VITALS: BP 132/74
[2019-12-19] MEDS: METHYLPREDNISOLONE SOD SUCC 40 MG/ML VIAL IV SCH ×3 (01:00→17:22)
[2019-12-19] MEDS: LORAZEPAM 2MG/ML CPJ IV PRN ×2 (02:34→23:39)
[2019-12-19 04:00] VITALS: BP 133/86
[2019-12-19] MEDS: DILTIAZEM HCL 90MG TABLET PO SCH ×4 (05:18→17:26)
[2019-12-19] MEDS: BLOOD SUGAR DIAGNOSTIC STRIP TEST SCH ×4 (06:31→20:43)
[2019-12-19] MEDS: MORPHINE SULFATE 2 MG/ML CPJ (NOT FOR IM USE) IV PRN (06:45)
[2019-12-19 07:11] LABS: CHLORIDE 100 mEq/L (98-107)
[2019-12-19 07:37] LABS: BASOPHILS % 0.2 % (0.0-2.0); HEMATOCRIT. 38.6 % (42.0-52.0); HEMOGLOBIN. 13.3 g/dL (14.0-18.0); LYMPHOCYTES % 11.5 % (20.0-50.0); MEAN CORPUSCULAR HEMOGLOBIN 30.2 pg (28.0-32.0); MEAN CORPUSCULAR VOLUME 87.8 fL (80.0-94.0); MEAN PLATELET VOLUME 7.8 fl (7.4-10.4); MONOCYTES % 10.7 % (2.0-8.0); NEUTROPHILS % 77.6 % (40.0-76.0); PLATELET 522 x1000/uL (130-400); RED BLOOD CELL COUNT 4.39 mill/uL (4.7-6.1); RED CELL DISTRIBUTION WIDTH 15.4 % (11.6-14.6)
[2019-12-19] MEDS: INSULIN LISPRO 100 UNITS/ML SUBCUT SCH ×4 (07:50→21:00)
[2019-12-19] MEDS ORDERED: FUROSEMIDE 40MG TABLET PO SCH (09:00)
[2019-12-19] MEDS: IPRATROPIUM BROMIDE (0.02%) 0.5MG/2.5ML NEB HHN SCH ×4 (10:11→20:08)
[2019-12-19] MEDS: BUDESONIDE 0.5MG/2ML NEB HHN SCH (10:11)
[2019-12-19] MEDS: GUAIFENESIN 600MG ER TABLET PO SCH ×2 (10:13→21:00)
[2019-12-19] MEDS: AZITHROMYCIN 500 MG TABLET PO SCH (10:13)
[2019-12-19] MEDS: APIXABAN 5 MG TABLET PO SCH ×2 (10:14→17:23)
[2019-12-19] MEDS: FUROSEMIDE 40MG TABLET PO SCH ×2 (10:14→21:00)
[2019-12-19] MEDS: FLUTICASONE PROPIONATE 50MCG/SPRAY BOTTLE BOTHNSTRLS SCH ×2 (10:14→21:32)
[2019-12-19] MEDS: DULOXETINE HCL 20MG DR CAPSULE PO SCH ×2 (10:24→21:00)
[2019-12-19] MEDS: CEFTRIAXONE 1 G PREMIX 50 ML IV SCH (11:07)
[2019-12-19 12:20] VITALS: BP 130/112
[2019-12-19 16:17] VITALS: BP 143/79
[2019-12-19] MEDS: DIGOXIN 500MCG/2ML AMP IV SCH (17:22)
[2019-12-20] VITALS: BP 125/72
[2019-12-20] MEDS: IPRATROPIUM BROMIDE (0.02%) 0.5MG/2.5ML NEB HHN SCH ×5 (00:26→16:31)
[2019-12-20] MEDS: METHYLPREDNISOLONE SOD SUCC 40 MG/ML VIAL IV SCH ×2 (01:00→10:18)
[2019-12-20] MEDS: DILTIAZEM HCL 90MG TABLET PO SCH ×4 (01:24→17:09)
[2019-12-20 04:00] VITALS: BP 143/92
[2019-12-20] MEDS: MORPHINE SULFATE 2 MG/ML CPJ (NOT FOR IM USE) IV PRN ×2 (06:42→12:45)
[2019-12-20] MEDS: BLOOD SUGAR DIAGNOSTIC STRIP TEST SCH ×4 (07:43→21:00)
[2019-12-20] MEDS: INSULIN LISPRO 100 UNITS/ML SUBCUT SCH ×4 (07:44→21:00)
[2019-12-20 08:00] VITALS: BP 114/76
[2019-12-20] MEDS: FLUTICASONE PROPIONATE 50MCG/SPRAY BOTTLE BOTHNSTRLS SCH ×2 (09:00→10:17)
[2019-12-20] MEDS: DULOXETINE HCL 20MG DR CAPSULE PO SCH ×2 (10:17→21:00)
[2019-12-20] MEDS: GUAIFENESIN 600MG ER TABLET PO SCH ×2 (10:18→21:00)
[2019-12-20] MEDS: APIXABAN 5 MG TABLET PO SCH ×2 (10:18→17:00)
[2019-12-20] MEDS: AZITHROMYCIN 500 MG TABLET PO SCH (10:18)
[2019-12-20] MEDS: FUROSEMIDE 40MG TABLET PO SCH ×2 (10:18→21:00)
[2019-12-20 12:00] VITALS: BP 120/58
[2019-12-20] MEDS: CEFTRIAXONE 1 G PREMIX 50 ML IV SCH (12:07)
[2019-12-20 16:00] VITALS: BP 100/72
[2019-12-20] MEDS: DIGOXIN 500MCG/2ML AMP IV SCH (17:02)
[2019-12-20 18:17] VITALS: BP 100/72
[2019-12-21] MEDS ORDERED: PREDNISONE 20MG TABLET PO SCH (07:50)
== END 2019-12-20 21:00 | DRG 816 ==
LOC: ER 02:15 → ENRESERV 07:44 → 5EST 08:32 → 6WST 12-16 12:22
PROVIDERS: ADMIT Internal Medicine; ATTEND Internal Medicine
PROC: 5A09357 Assistance with Respiratory Ventilation, Less than 24 Consecutive Hours, Continuous Positive Airway Pressure (ICD-10-PCS; principal; 2019-12-15)
PROC: 5A09357 Assistance with Respiratory Ventilation, Less than 24 Consecutive Hours, Continuous Positive Airway Pressure (ICD-10-PCS; 2019-12-16)
PROC: 4B02XSZ Measurement of Cardiac Pacemaker, External Approach (ICD-10-PCS; 2019-12-16)
PROC: 5A09357 Assistance with Respiratory Ventilation, Less than 24 Consecutive Hours, Continuous Positive Airway Pressure (ICD-10-PCS; 2019-12-20)
DX: T40.5X1A Poisoning by cocaine, accidental (unintentional), initial encounter (principal); J96.00 Acute respiratory failure, unspecified whether with hypoxia or hypercapnia; A41.9 Sepsis, unspecified organism; I50.33 Acute on chronic diastolic (congestive) heart failure; E44.1 Mild protein-calorie malnutrition; E66.01 Morbid (severe) obesity due to excess calories; I48.91 Unspecified atrial fibrillation; K61.0 Anal abscess; G40.909 Epilepsy, unspecified, not intractable, without status epilepticus; D64.9 Anemia, unspecified; E11.9 Type 2 diabetes mellitus without complications; I11.0 Hypertensive heart disease with heart failure; I49.5 Sick sinus syndrome; F32.9 Major depressive disorder, single episode, unspecified; J44.0 Chronic obstructive pulmonary disease with (acute) lower respiratory infection; K62.89 Other specified diseases of anus and rectum; E78.5 Hyperlipidemia, unspecified; G47.33 Obstructive sleep apnea (adult) (pediatric); I48.92 Unspecified atrial flutter; I69.354 Hemiplegia and hemiparesis following cerebral infarction affecting left non-dominant side; M47.816 Spondylosis without myelopathy or radiculopathy, lumbar region; F17.210 Nicotine dependence, cigarettes, uncomplicated; G89.4 Chronic pain syndrome; R26.2 Difficulty in walking, not elsewhere classified; F12.10 Cannabis abuse, uncomplicated; F14.10 Cocaine abuse, uncomplicated; J70.4 Drug-induced interstitial lung disorders, unspecified; J44.1 Chronic obstructive pulmonary disease with (acute) exacerbation; Z76.5 Malingerer [conscious simulation]; Z79.01 Long term (current) use of anticoagulants; Z79.899 Other long term (current) drug therapy; Z91.14 Patient's other noncompliance with medication regimen; Z88.6 Allergy status to analgesic agent; Z95.0 Presence of cardiac pacemaker; Z79.82 Long term (current) use of aspirin; Z68.42 Body mass index [BMI] 45.0-49.9, adult; Z71.89 Other specified counseling; Z71.51 Drug abuse counseling and surveillance of drug abuser; Z71.6 Tobacco abuse counseling; Y92.89 Other specified places as the place of occurrence of the external cause
CPT/HCPCS: 36415; 71045; 80048; 80053; 80162; 80305; 82962; 83605; 83735; 83880; 84134; 84145; 84484; 85025; 87804; 93005; 93306; 94640; 94660; 97162; 97530; 99291; J0456; J0696; J1160; J1200; J1940; J2060; J2270; J2920; J3490; J7060; J7626; Q0163

== ENCOUNTER 2020-01-24 01:36 | Inpatient (IN) | payer MEDICAID ==
[~2020-01-24] VITALS: Ht 175.3 cm; Wt 127.5 kg
[~2020-01-24 01:36] MED LIST changes: -HYDR-3281 MT
[2020-01-24] MEDS ORDERED: ACETAMINOPHEN 325MG TABLET PO STA (01:52)
[2020-01-24] MEDS ORDERED: ASPIRIN 81MG TABLET PO ONE (02:00)
[2020-01-24] MEDS ORDERED: NITROGLYCERIN 0.4MG TABLET SL SL PRN (02:00)
[2020-01-24] MEDS ORDERED: FUROSEMIDE 40MG/4ML VIAL IV ONE (02:00)
[2020-01-24] MEDS ORDERED: ONDANSETRON HCL 4MG/2ML INJ IV ONE (03:00)
[2020-01-24] MEDS ORDERED: MORPHINE SULFATE 4 MG/ML CPJ (NOT FOR IM USE) IV ONE (03:00)
[2020-01-24 03:42] LABS: BASOPHILS % 0.4 % (0.0-2.0); HEMATOCRIT. 39.5 % (42.0-52.0); HEMOGLOBIN. 13.1 g/dL (14.0-18.0); LYMPHOCYTES % 26.4 % (20.0-50.0); MEAN CORPUSCULAR HEMOGLOBIN 29.8 pg (28.0-32.0); MEAN CORPUSCULAR VOLUME 89.8 fL (80.0-94.0); MEAN PLATELET VOLUME 7.7 fl (7.4-10.4); MONOCYTES % 6.7 % (2.0-8.0); NEUTROPHILS % 65.5 % (40.0-76.0); PLATELET 456 x1000/uL (130-400); RED CELL DISTRIBUTION WIDTH 16.6 % (11.6-14.6)
[2020-01-24 03:48] LABS: CHLORIDE 105 mEq/L (98-107)
[2020-01-24 03:49] LABS: INR 1.1; PARTIAL THROMBOPLASTIN TIME 32.1 sec (23.4-31.0)
[2020-01-24] MEDS: HYDROCODONE/ACETAMINOPHEN 5/325MG TABLET PO PRN ×3 (06:33→23:53)
[2020-01-24 08:00] VITALS: BP 118/67
[2020-01-24 10:00] VITALS: BP 145/88
[2020-01-24] MEDS ORDERED: ONDANSETRON HCL 4MG/2ML INJ IV PRN (11:15)
[2020-01-24 12:00] VITALS: BP 131/73
[2020-01-24] MEDS ORDERED: AZITHROMYCIN 500 MG TABLET PO NR (13:00)
[2020-01-24] MEDS: AMLODIPINE 5MG TABLET PO SCH ×2 (13:10→22:04)
[2020-01-24] MEDS: LORAZEPAM 1MG TABLET PO PRN (13:11)
[2020-01-24] MEDS: LOSARTAN POTASSIUM 50 MG TABLET PO SCH (13:11)
[2020-01-24 16:00] VITALS: BP 112/64
[2020-01-24] MEDS: FUROSEMIDE 40MG/4ML VIAL IVP SCH (16:03)
[2020-01-24] MEDS: ACETAMINOPHEN 325MG TABLET PO PRN (16:04)
[2020-01-24] MEDS: HYDROCODONE/ACETAMINOPHEN 10/325MG TABLET PO PRN (17:01)
[2020-01-24] MEDS: CEFTRIAXONE 1 G PREMIX 50 ML IV SCH (17:02)
[2020-01-24 18:49] VITALS: BP 112/64
[2020-01-24 19:36] LABS: *AMPHETAMINES SCREEN URINE NEGATIVE (NEGATIVE); *BARBITURATES SCREEN URINE NEGATIVE (NEGATIVE); *BENZODIAZEPINES SCREEN URINE NEGATIVE (NEGATIVE); *COCAINE SCREEN URINE PRESUMTIVE POSITIVE (NEGATIVE); METHADONE URINE SCREEN NEGATIVE (NEGATIVE); OPIATES URINE SCREEN PRESUMTIVE POSITIVE (NEGATIVE)
[2020-01-24 19:37] LABS: CANNABINOID URINE SCREEN NEGATIVE (NEGATIVE); PHENCYCLIDINE URINE SCREEN NEGATIVE (NEGATIVE)
[2020-01-24 20:00] VITALS: BP 133/53
[2020-01-24] MEDS: ENOXAPARIN 30MG/0.3ML SYR SUBCUT SCH ×2 (21:00→22:04)
[2020-01-24] MEDS: GUAIFENESIN 600MG ER TABLET PO SCH (22:04)
[2020-01-24] MEDS: CARISOPRODOL 350 MG TABLET PO SCH (22:50)
[2020-01-25] VITALS: BP 101/57
[2020-01-25] MEDS: HYDROCODONE/ACETAMINOPHEN 10/325MG TABLET PO PRN ×2 (02:12→22:38)
[2020-01-25 04:00] VITALS: BP 100/58
[2020-01-25] MEDS: HYDROCODONE/ACETAMINOPHEN 5/325MG TABLET PO PRN ×3 (04:51→16:11)
[2020-01-25] MEDS: CARISOPRODOL 350 MG TABLET PO SCH ×3 (06:47→22:44)
[2020-01-25 08:00] VITALS: BP 115/59
[2020-01-25] MEDS: GUAIFENESIN 600MG ER TABLET PO SCH ×2 (08:51→22:38)
[2020-01-25] MEDS: FUROSEMIDE 40MG/4ML VIAL IVP SCH ×3 (08:51→18:31)
[2020-01-25] MEDS: AZITHROMYCIN 250 MG TABLET PO SCH (08:52)
[2020-01-25] MEDS: AMLODIPINE 5MG TABLET PO SCH ×2 (08:52→22:38)
[2020-01-25] MEDS: LOSARTAN POTASSIUM 50 MG TABLET PO SCH (08:52)
[2020-01-25] MEDS: CEFTRIAXONE 1 G PREMIX 50 ML IV SCH (08:53)
[2020-01-25] MEDS: ENOXAPARIN 30MG/0.3ML SYR SUBCUT SCH (09:00)
[2020-01-25 16:05] VITALS: BP 112/58
[2020-01-25] MEDS: APIXABAN 5 MG TABLET PO SCH ×2 (17:00→18:31)
[2020-01-25 17:07] LABS: BASOPHILS % 0.3 % (0.0-2.0); EOSINOPHILS % 1.8 % (0.0-5.0); HEMATOCRIT. 36.4 % (42.0-52.0); HEMOGLOBIN. 12.2 g/dL (14.0-18.0); LYMPHOCYTES % 14.6 % (20.0-50.0); MEAN CORPUSCULAR HEMOGLOBIN 29.8 pg (28.0-32.0); MEAN CORPUSCULAR VOLUME 89.1 fL (80.0-94.0); MEAN PLATELET VOLUME 7.8 fl (7.4-10.4); MONOCYTES % 8.9 % (2.0-8.0); NEUTROPHILS % 74.4 % (40.0-76.0); PLATELET 393 x1000/uL (130-400); RED BLOOD CELL COUNT 4.09 mill/uL (4.7-6.1)
[2020-01-25 17:12] LABS: CHLORIDE 101 mEq/L (98-107)
[2020-01-25] MEDS: LORAZEPAM 1MG TABLET PO PRN (19:49)
[2020-01-25] MEDS: ACETAMINOPHEN 325MG TABLET PO PRN (19:51)
[2020-01-25 20:00] VITALS: BP 175/146
[2020-01-25] MEDS ORDERED: MORPHINE SULFATE 2 MG/ML CPJ (NOT FOR IM USE) IV PRN (22:30)
[2020-01-25] MEDS: FLUOXETINE HCL 20MG CAPSULE PO SCH (22:38)
[2020-01-25] MEDS: ALPRAZOLAM 0.5 MG TABLET PO PRN (22:39)
[2020-01-26] MEDS: HYDROCODONE/ACETAMINOPHEN 5/325MG TABLET PO PRN ×3 (02:17→22:38)
[2020-01-26] MEDS: LORAZEPAM 1MG TABLET PO PRN ×3 (05:06→22:29)
[2020-01-26] MEDS: HYDROCODONE/ACETAMINOPHEN 10/325MG TABLET PO PRN ×2 (05:08→17:45)
[2020-01-26] MEDS: CARISOPRODOL 350 MG TABLET PO SCH ×3 (05:08→22:29)
[2020-01-26 08:00] VITALS: BP 119/54
[2020-01-26] MEDS: LOSARTAN POTASSIUM 50 MG TABLET PO SCH (09:40)
[2020-01-26] MEDS: FLUOXETINE HCL 20MG CAPSULE PO SCH (09:40)
[2020-01-26] MEDS: FUROSEMIDE 40MG/4ML VIAL IVP SCH ×2 (09:40→17:44)
[2020-01-26] MEDS: AMLODIPINE 5MG TABLET PO SCH ×2 (09:40→22:29)
[2020-01-26] MEDS: GUAIFENESIN 600MG ER TABLET PO SCH ×2 (09:40→22:29)
[2020-01-26] MEDS: AZITHROMYCIN 250 MG TABLET PO SCH (09:40)
[2020-01-26] MEDS: APIXABAN 5 MG TABLET PO SCH ×2 (09:43→17:45)
[2020-01-26] MEDS: CEFTRIAXONE 1 G PREMIX 50 ML IV SCH (09:43)
[2020-01-26] MEDS: ACETAMINOPHEN 325MG TABLET PO PRN (14:29)
[2020-01-26] MEDS: ALPRAZOLAM 0.5 MG TABLET PO PRN (14:39)
[2020-01-26 16:00] VITALS: BP 139/70
[2020-01-26 18:00] VITALS: BP 139/70
[2020-01-26 20:00] VITALS: BP 127/69
[2020-01-27] VITALS: BP 112/68
[2020-01-27] MEDS: ACETAMINOPHEN 325MG TABLET PO PRN (00:29)
[2020-01-27] MEDS: HYDROCODONE/ACETAMINOPHEN 10/325MG TABLET PO PRN ×3 (00:29→21:31)
[2020-01-27] MEDS: ALPRAZOLAM 0.5 MG TABLET PO PRN ×3 (00:46→22:05)
[2020-01-27 04:00] VITALS: BP 125/78
[2020-01-27] MEDS: CARISOPRODOL 350 MG TABLET PO SCH ×3 (06:13→21:01)
[2020-01-27] MEDS: LORAZEPAM 1MG TABLET PO PRN ×2 (06:13→21:30)
[2020-01-27] MEDS: HYDROCODONE/ACETAMINOPHEN 5/325MG TABLET PO PRN ×2 (06:13→18:14)
[2020-01-27 08:00] VITALS: BP 168/106
[2020-01-27] MEDS: AZITHROMYCIN 250 MG TABLET PO SCH (10:04)
[2020-01-27] MEDS: FUROSEMIDE 40MG/4ML VIAL IVP SCH ×2 (10:04→18:09)
[2020-01-27] MEDS: AMLODIPINE 5MG TABLET PO SCH ×2 (10:04→21:01)
[2020-01-27] MEDS: LOSARTAN POTASSIUM 50 MG TABLET PO SCH ×2 (10:04→21:02)
[2020-01-27] MEDS: FLUOXETINE HCL 20MG CAPSULE PO SCH (10:12)
[2020-01-27] MEDS: APIXABAN 5 MG TABLET PO SCH ×2 (10:12→18:09)
[2020-01-27] MEDS: GUAIFENESIN 600MG ER TABLET PO SCH ×2 (10:12→21:00)
[2020-01-27 12:00] VITALS: BP 107/64
[2020-01-27 16:00] VITALS: BP 137/113
[2020-01-27] MEDS ORDERED: CLONIDINE 0.1MG TABLET PO PRN (17:30)
[2020-01-27 20:00] VITALS: BP 111/68
[2020-01-27] MEDS: DIPHENHYDRAMINE 50MG CAPSULE PO PRN (21:00)
[2020-01-27] MEDS: IPRATROPIUM/ALBUTEROL 0.5-3(2.5)MG/3ML NEB HHN SCH (21:16)
[2020-01-28] VITALS: BP 113/70
[2020-01-28] MEDS: IPRATROPIUM/ALBUTEROL 0.5-3(2.5)MG/3ML NEB HHN SCH ×4 (01:42→21:30)
[2020-01-28] MEDS: ACETAMINOPHEN 325MG TABLET PO PRN (02:21)
[2020-01-28] MEDS: DIPHENHYDRAMINE 50MG CAPSULE PO PRN (02:46)
[2020-01-28 04:00] VITALS: BP 115/72
[2020-01-28] MEDS: HYDROCODONE/ACETAMINOPHEN 10/325MG TABLET PO PRN ×3 (04:02→22:06)
[2020-01-28] MEDS: CARISOPRODOL 350 MG TABLET PO SCH ×3 (05:46→22:05)
[2020-01-28 08:00] VITALS: BP 136/79
[2020-01-28] MEDS: FLUOXETINE HCL 20MG CAPSULE PO SCH (09:32)
[2020-01-28] MEDS: GUAIFENESIN 600MG ER TABLET PO SCH ×2 (09:32→22:05)
[2020-01-28] MEDS: AZITHROMYCIN 250 MG TABLET PO SCH (09:32)
[2020-01-28] MEDS: HYDROCODONE/ACETAMINOPHEN 5/325MG TABLET PO PRN (09:32)
[2020-01-28] MEDS: APIXABAN 5 MG TABLET PO SCH ×2 (09:33→18:00)
[2020-01-28] MEDS: AMLODIPINE 5MG TABLET PO SCH ×2 (09:33→22:05)
[2020-01-28] MEDS: LOSARTAN POTASSIUM 50 MG TABLET PO SCH ×2 (09:33→22:03)
[2020-01-28] MEDS: FUROSEMIDE 40MG/4ML VIAL IVP SCH ×2 (09:33→17:59)
[2020-01-28] MEDS: CEFTRIAXONE 1,000 MG in DEXTROSE 5% WATER 50 ML IV SCH (09:46)
[2020-01-28 12:00] VITALS: BP 146/79
[2020-01-28] MEDS ORDERED: MORPHINE SULFATE 2 MG/ML CPJ (NOT FOR IM USE) IV NR (13:15)
[2020-01-28 16:00] VITALS: BP 121/79
[2020-01-28] MEDS: METFORMIN HCL 500MG TABLET PO SCH (18:00)
[2020-01-28 20:00] VITALS: BP 129/54
[2020-01-29] VITALS: BP 141/77
[2020-01-29] MEDS: ACETAMINOPHEN 325MG TABLET PO PRN ×3 (00:44→21:51)
[2020-01-29] MEDS: DIPHENHYDRAMINE 50MG CAPSULE PO PRN (00:55)
[2020-01-29] MEDS: IPRATROPIUM/ALBUTEROL 0.5-3(2.5)MG/3ML NEB HHN SCH ×4 (01:22→20:35)
[2020-01-29 04:00] VITALS: BP 116/65
[2020-01-29] MEDS: CARISOPRODOL 350 MG TABLET PO SCH ×3 (06:34→21:51)
[2020-01-29] MEDS: HYDROCODONE/ACETAMINOPHEN 5/325MG TABLET PO PRN (06:42)
[2020-01-29 08:00] VITALS: BP 125/53
[2020-01-29] MEDS: CEFTRIAXONE 1,000 MG in DEXTROSE 5% WATER 50 ML IV SCH (09:15)
[2020-01-29] MEDS: FUROSEMIDE 40MG/4ML VIAL IVP SCH (09:15)
[2020-01-29] MEDS: AMLODIPINE 5MG TABLET PO SCH ×2 (09:16→21:50)
[2020-01-29] MEDS: APIXABAN 5 MG TABLET PO SCH ×3 (09:16→17:28)
[2020-01-29] MEDS: LOSARTAN POTASSIUM 50 MG TABLET PO SCH ×2 (09:16→21:50)
[2020-01-29] MEDS: FLUOXETINE HCL 20MG CAPSULE PO SCH (09:16)
[2020-01-29] MEDS: GUAIFENESIN 600MG ER TABLET PO SCH ×2 (09:16→21:51)
[2020-01-29] MEDS: METFORMIN HCL 500MG TABLET PO SCH ×3 (09:16→17:48)
[2020-01-29] MEDS: HYDROCODONE/ACETAMINOPHEN 10/325MG TABLET PO PRN (09:17)
[2020-01-29 12:00] VITALS: BP 111/47
[2020-01-29] MEDS: ALPRAZOLAM 0.5 MG TABLET PO PRN ×2 (13:08→21:52)
[2020-01-29 16:00] VITALS: BP 111/60
[2020-01-29] MEDS: FUROSEMIDE 40MG TABLET PO SCH ×2 (17:15→17:28)
[2020-01-29 20:00] VITALS: BP 100/60
[2020-01-29] MEDS: BUDESONIDE 0.5MG/2ML NEB HHN SCH (20:36)
[2020-01-30] VITALS: BP 136/71
[2020-01-30] MEDS: IPRATROPIUM/ALBUTEROL 0.5-3(2.5)MG/3ML NEB HHN SCH ×3 (01:53→14:50)
[2020-01-30] MEDS: ACETAMINOPHEN 325MG TABLET PO PRN (03:01)
[2020-01-30] MEDS: CARISOPRODOL 350 MG TABLET PO SCH ×3 (06:50→20:22)
[2020-01-30] MEDS: FUROSEMIDE 40MG TABLET PO SCH ×2 (06:50→16:16)
[2020-01-30 08:28] VITALS: BP 118/70
[2020-01-30] MEDS: BUDESONIDE 0.5MG/2ML NEB HHN SCH (08:51)
[2020-01-30] MEDS: GUAIFENESIN 600MG ER TABLET PO SCH ×2 (09:15→20:22)
[2020-01-30] MEDS: METFORMIN HCL 500MG TABLET PO SCH ×2 (09:18→16:16)
[2020-01-30] MEDS: LOSARTAN POTASSIUM 50 MG TABLET PO SCH ×2 (09:18→20:22)
[2020-01-30] MEDS: APIXABAN 5 MG TABLET PO SCH ×2 (09:18→16:16)
[2020-01-30] MEDS: AMLODIPINE 5MG TABLET PO SCH ×2 (09:19→20:23)
[2020-01-30] MEDS: FLUOXETINE HCL 20MG CAPSULE PO SCH (09:19)
[2020-01-30 11:47] VITALS: BP 125/64
[2020-01-30] MEDS ORDERED: IPRA3AMP9 NEB (14:43)
[2020-01-30] MEDS ORDERED: LOSA50TA3 PO (14:43)
[2020-01-30] MEDS ORDERED: FLUO20CA33 MT (14:43)
[2020-01-30] MEDS ORDERED: ALPR0.5T PO (14:43)
[2020-01-30] MEDS ORDERED: CARI350T27 PO (14:43)
[2020-01-30] MEDS ORDERED: METF500T PO (14:43)
[2020-01-30] MEDS ORDERED: ALBU18HF2 IH (14:43)
[2020-01-30] MEDS ORDERED: AMLO5TAB88 PO (14:43)
[2020-01-30] MEDS ORDERED: APIX5TAB PO (14:43)
[2020-01-30] MEDS ORDERED: FURO40TA5 PO (14:43)
[2020-01-30] MEDS ORDERED: FLUT1DIS3 INH (14:43)
[2020-01-30] MEDS ORDERED: HYDROCODONE/ACETAMINOPHEN 10/325MG TABLET PO PRN (14:45)
[2020-01-30] MEDS ORDERED: ALPR2TAB2 MT (16:41)
[2020-01-30 17:36] VITALS: BP 125/72
[2020-01-30] MEDS ORDERED: IPRATROPIUM/ALBUTEROL 0.5-3(2.5)MG/3ML NEB HHN SCH (22:00)
== END 2020-01-30 17:35 | disposition home or self-care (01) | DRG 720 ==
LOC: ER 01:36 → 7WST 04:18 → ENRESERV 07:36 → 6WST 01-26 18:32
PROVIDERS: ADMIT Internal Medicine; ATTEND Internal Medicine
PROC: 5A09357 Assistance with Respiratory Ventilation, Less than 24 Consecutive Hours, Continuous Positive Airway Pressure (ICD-10-PCS; principal; 2020-01-29)
DX: A41.9 Sepsis, unspecified organism (principal); J96.00 Acute respiratory failure, unspecified whether with hypoxia or hypercapnia; I50.33 Acute on chronic diastolic (congestive) heart failure; E44.0 Moderate protein-calorie malnutrition; E87.2 Acidosis; I11.0 Hypertensive heart disease with heart failure; J18.9 Pneumonia, unspecified organism; Z68.41 Body mass index [BMI] 40.0-44.9, adult; I48.91 Unspecified atrial fibrillation; E11.9 Type 2 diabetes mellitus without complications; J44.9 Chronic obstructive pulmonary disease, unspecified; E66.9 Obesity, unspecified; G47.33 Obstructive sleep apnea (adult) (pediatric); F17.210 Nicotine dependence, cigarettes, uncomplicated; Z20.828 Contact with and (suspected) exposure to other viral communicable diseases; F14.10 Cocaine abuse, uncomplicated; F11.10 Opioid abuse, uncomplicated; F12.10 Cannabis abuse, uncomplicated; J06.9 Acute upper respiratory infection, unspecified; F32.9 Major depressive disorder, single episode, unspecified; F41.9 Anxiety disorder, unspecified; Z86.73 Personal history of transient ischemic attack (TIA), and cerebral infarction without residual deficits; Z76.5 Malingerer [conscious simulation]; Z95.0 Presence of cardiac pacemaker; Z88.6 Allergy status to analgesic agent; Z91.018 Allergy to other foods; Z79.899 Other long term (current) drug therapy; Z71.6 Tobacco abuse counseling; Z71.51 Drug abuse counseling and surveillance of drug abuser; Z71.3 Dietary counseling and surveillance
CPT/HCPCS: 36415; 71045; 80048; 80053; 80305; 82728; 82962; 83605; 83615; 83880; 84145; 84484; 85025; 85379; 86140; 87635; 87804; 93005; 94640; 94660; 97116; 97162; 97164; 97530; 99291; J0696; J1650; J1940; J2270; J2405; J7060; J7626; Q0163

== ENCOUNTER 2020-04-23 09:49 | Emergency (ER) | payer MEDICAID ==
[~2020-04-23] VITALS: Ht 185.4 cm; Wt 120.0 kg
[~2020-04-23 09:49] MED LIST changes: +ALBU18HF2 IH; +ALPR0.5T PO; +ALPR2TAB2 MT; -ALPR2TAB2 PO; +AMLO5TAB88 PO; +APIX5TAB PO; -ASPI-1497 PO; +CARI350T27 PO; +FLUT1DIS3 INH; +FURO40TA5 PO; +IPRA3AMP9 NEB; +LOSA50TA3 PO; +METF500T PO
[2020-04-23] MEDS ORDERED: ACETAMINOPHEN WITH CODEINE 300/30MG TABLET PO ONE (11:45)
[2020-04-23 14:18] VITALS: BP 159/70
== END 2020-04-23 14:30 | disposition home or self-care (01) ==
LOC: ER 09:53
DX: T81.89XA Other complications of procedures, not elsewhere classified, initial encounter (principal); I50.9 Heart failure, unspecified; Z95.0 Presence of cardiac pacemaker; Z88.6 Allergy status to analgesic agent; Z91.018 Allergy to other foods; I69.354 Hemiplegia and hemiparesis following cerebral infarction affecting left non-dominant side; Y83.8 Other surgical procedures as the cause of abnormal reaction of the patient, or of later complication, without mention of misadventure at the time of the procedure; Y92.018 Other place in single-family (private) house as the place of occurrence of the external cause
CPT/HCPCS: 99283

== ENCOUNTER 2020-04-26 00:47 | Inpatient (IN) | payer MEDICAID ==
[~2020-04-26] VITALS: Ht 175.3 cm; Wt 137.4 kg
[2020-04-26] MEDS ORDERED: ASPIRIN 81MG TABLET PO ONE (01:15)
[2020-04-26 01:26] LABS: BASOPHILS % 0.6 % (0.0-2.0); EOSINOPHILS % 7.3 % (0.0-5.0); HEMOGLOBIN. 11.4 g/dL (14.0-18.0); LYMPHOCYTES % 22.5 % (20.0-50.0); MEAN CORPUSCULAR HEMOGLOBIN 29.3 pg (28.0-32.0); MEAN CORPUSCULAR VOLUME 87.6 fL (80.0-94.0); MONOCYTES % 9.9 % (2.0-8.0); NEUTROPHILS % 59.7 % (40.0-76.0); PLATELET 496 x1000/uL (130-400); RED BLOOD CELL COUNT 3.87 mill/uL (4.7-6.1); RED CELL DISTRIBUTION WIDTH 15.3 % (11.6-14.6)
[2020-04-26 01:28] LABS: CHLORIDE 110 mEq/L (98-107)
[2020-04-26] MEDS ORDERED: NITROGLYCERIN 0.4MG TABLET SL SL ONE (02:15)
[2020-04-26] MEDS ORDERED: VISCOUS LIDOCAINE 2% 15 ML UDC PO ONE (02:15)
[2020-04-26] MEDS ORDERED: CLINDAMYCIN 600 MG in DEXTROSE 5% WATER 50 ML IV ONE (02:15)
[2020-04-26] MEDS ORDERED: MORPHINE SULFATE 2 MG/ML CPJ (NOT FOR IM USE) IV ONE ×2 (02:15→05:00)
[2020-04-26] MEDS ORDERED: MAGNESIUM/ALUMINUM HYDROXIDE/SIMETHICONE 30ML UDC PO ONE (02:15)
[2020-04-26] MEDS ORDERED: DIATR MEGLU/DIATRIZOATE SOLN 30ML ONE (02:30)
[2020-04-26] MEDS ORDERED: CLINDAMYCIN 600 MG in SODIUM CHLORIDE 0.9% 50 ML IV NR (02:45)
[2020-04-26] MEDS: MORPHINE SULFATE 2 MG/ML CPJ (NOT FOR IM USE) IV PRN ×4 (09:18→23:01)
[2020-04-26] MEDS ORDERED: ALPRAZOLAM 0.5 MG TABLET PO PRN (16:00)
[2020-04-26] MEDS ORDERED: DEXTROSE 50% WATER 50ML SYRINGE IV PRN ×2 (16:15)
[2020-04-26 16:46] LABS: *AMPHETAMINES SCREEN URINE NEGATIVE (NEGATIVE); *BARBITURATES SCREEN URINE NEGATIVE (NEGATIVE); *BENZODIAZEPINES SCREEN URINE PRESUMTIVE POSITIVE (NEGATIVE)
[2020-04-26 16:47] LABS: *COCAINE SCREEN URINE PRESUMTIVE POSITIVE (NEGATIVE); CANNABINOID URINE SCREEN PRESUMTIVE POSITIVE (NEGATIVE); METHADONE URINE SCREEN NEGATIVE (NEGATIVE); OPIATES URINE SCREEN PRESUMTIVE POSITIVE (NEGATIVE); PHENCYCLIDINE URINE SCREEN NEGATIVE (NEGATIVE)
[2020-04-26] MEDS: POTASSIUM CHLORIDE 20MEQ TABLET SR PO SCH (17:00)
[2020-04-26] MEDS ORDERED: APIXABAN 5 MG TABLET PO SCH (17:00)
[2020-04-26] MEDS: BLOOD SUGAR DIAGNOSTIC STRIP TEST SCH ×2 (17:00→20:32)
[2020-04-26] MEDS ORDERED: METFORMIN HCL 500MG TABLET PO SCH (17:00)
[2020-04-26] MEDS: FLUOXETINE HCL 20MG CAPSULE PO SCH (18:02)
[2020-04-26] MEDS ORDERED: LOSARTAN POTASSIUM 50 MG TABLET PO SCH (21:00)
[2020-04-26] MEDS: AMLODIPINE 5MG TABLET PO SCH (21:00)
[2020-04-26] MEDS: ENOXAPARIN 30MG/0.3ML SYR SUBCUT SCH (21:00)
[2020-04-26] MEDS: FUROSEMIDE 40MG TABLET PO SCH (21:34)
[2020-04-26] MEDS ORDERED: LORAZEPAM 2MG/ML CPJ IV PRN (21:45)
[2020-04-26] MEDS: LORAZEPAM 2MG/ML CPJ IV PRN (21:52)
[2020-04-26] MEDS ORDERED: CARISOPRODOL 350 MG TABLET PO SCH (22:00)
[2020-04-27] VITALS (7 sets, daily range): BP systolic 91–122; BP diastolic 46–71
[2020-04-27] MEDS: MORPHINE SULFATE 2 MG/ML CPJ (NOT FOR IM USE) IV PRN ×7 (02:23→23:37)
[2020-04-27] MEDS: BLOOD SUGAR DIAGNOSTIC STRIP TEST SCH ×4 (06:25→20:32)
[2020-04-27] MEDS: AMLODIPINE 5MG TABLET PO SCH ×2 (08:40→20:31)
[2020-04-27] MEDS: FLUOXETINE HCL 20MG CAPSULE PO SCH (08:40)
[2020-04-27] MEDS: ASPIRIN 81MG EC TABLET PO SCH (08:40)
[2020-04-27] MEDS: POTASSIUM CHLORIDE 20MEQ TABLET SR PO SCH ×2 (08:40→17:04)
[2020-04-27] MEDS: FUROSEMIDE 40MG TABLET PO SCH ×2 (08:40→20:31)
[2020-04-27] MEDS: ENOXAPARIN 30MG/0.3ML SYR SUBCUT SCH ×3 (08:41→20:31)
[2020-04-27 10:39] LABS: HEMATOCRIT. 34.6 % (42.0-52.0); HEMOGLOBIN. 11.2 g/dL (14.0-18.0); MEAN CORPUSCULAR HEMOGLOBIN 28.8 pg (28.0-32.0); MEAN CORPUSCULAR VOLUME 88.6 fL (80.0-94.0); RED CELL DISTRIBUTION WIDTH 15.9 % (11.6-14.6)
[2020-04-27 10:52] LABS: CHLORIDE 107 mEq/L (98-107)
[2020-04-27 11:01] LABS: PHOSPHORUS 3.3 mg/dL (2.5-4.9)
[2020-04-27 12:00] LABS: PLATELET ESTIMATE NORMAL
[2020-04-27 12:01] LABS: MEAN PLATELET VOLUME 7.6 fl (7.4-10.4); PLATELET 361 x1000/uL (130-400)
[2020-04-28 00:56] VITALS: BP 118/52
[2020-04-28 04:00] VITALS: BP 105/63
[2020-04-28 06:31] LABS: CHLORIDE 107 mEq/L (98-107)
[2020-04-28 06:34] LABS: BASOPHILS % 0.3 % (0.0-2.0); EOSINOPHILS % 9.1 % (0.0-5.0); HEMOGLOBIN. 11.6 g/dL (14.0-18.0); LYMPHOCYTES % 26.3 % (20.0-50.0); MEAN CORPUSCULAR HEMOGLOBIN 28.9 pg (28.0-32.0); MEAN CORPUSCULAR VOLUME 87.5 fL (80.0-94.0); MEAN PLATELET VOLUME 7.5 fl (7.4-10.4); MONOCYTES % 12.2 % (2.0-8.0); NEUTROPHILS % 52.1 % (40.0-76.0); PLATELET 438 x1000/uL (130-400); RED CELL DISTRIBUTION WIDTH 15.6 % (11.6-14.6)
[2020-04-28 08:00] VITALS: BP 153/77
[2020-04-28] MEDS: BLOOD SUGAR DIAGNOSTIC STRIP TEST SCH ×4 (08:04→20:22)
[2020-04-28] MEDS: ENOXAPARIN 30MG/0.3ML SYR SUBCUT SCH ×2 (09:00→09:13)
[2020-04-28] MEDS: IPRATROPIUM/ALBUTEROL 0.5-3(2.5)MG/3ML NEB NEB SCH ×3 (09:06→16:55)
[2020-04-28] MEDS: FUROSEMIDE 40MG TABLET PO SCH ×2 (09:12→20:20)
[2020-04-28] MEDS: POTASSIUM CHLORIDE 20MEQ TABLET SR PO SCH ×3 (09:12→16:22)
[2020-04-28] MEDS: ASPIRIN 81MG EC TABLET PO SCH (09:12)
[2020-04-28] MEDS: AMLODIPINE 5MG TABLET PO SCH ×2 (09:12→20:21)
[2020-04-28] MEDS: FLUOXETINE HCL 20MG CAPSULE PO SCH (09:12)
[2020-04-28] MEDS: MORPHINE SULFATE 2 MG/ML CPJ (NOT FOR IM USE) IV PRN ×4 (09:13→22:30)
[2020-04-28] MEDS ORDERED: ASPI-1158 PO (10:58)
[2020-04-28 12:00] VITALS: BP 141/82
[2020-04-28] MEDS ORDERED: DIPHENHYDRAMINE 50MG CAPSULE PO PRN (15:45)
[2020-04-28 16:00] VITALS: BP 131/72
[2020-04-28] MEDS ORDERED: DIPHENHYDRAMINE 50MG/ML VIAL IV PRN (16:00)
[2020-04-28] MEDS: ENOXAPARIN 40MG/0.4ML SYR SUBCUT SCH (20:21)
[2020-04-28] MEDS: LORAZEPAM 2MG/ML CPJ IV PRN (20:40)
[2020-04-28 20:47] VITALS: BP 136/84
[2020-04-29 00:12] VITALS: BP 116/56
[2020-04-29] MEDS: MORPHINE SULFATE 2 MG/ML CPJ (NOT FOR IM USE) IV PRN ×5 (03:36→18:03)
[2020-04-29 04:00] VITALS: BP 123/62
[2020-04-29] MEDS: BLOOD SUGAR DIAGNOSTIC STRIP TEST SCH ×3 (07:47→17:36)
[2020-04-29 08:00] VITALS: BP 109/60
[2020-04-29] MEDS: FUROSEMIDE 40MG TABLET PO SCH ×3 (09:00→20:12)
[2020-04-29] MEDS: ENOXAPARIN 40MG/0.4ML SYR SUBCUT SCH ×2 (09:00→20:12)
[2020-04-29] MEDS: AMLODIPINE 5MG TABLET PO SCH ×2 (09:00→20:02)
[2020-04-29] MEDS: IPRATROPIUM/ALBUTEROL 0.5-3(2.5)MG/3ML NEB NEB SCH (09:20)
[2020-04-29] MEDS: FLUOXETINE HCL 20MG CAPSULE PO SCH (09:28)
[2020-04-29] MEDS: POTASSIUM CHLORIDE 20MEQ TABLET SR PO SCH ×2 (09:28→17:00)
[2020-04-29] MEDS: ASPIRIN 81MG EC TABLET PO SCH (09:28)
[2020-04-29 12:00] VITALS: BP 126/65
[2020-04-29 16:00] VITALS: BP 111/61
[2020-04-29] MEDS ORDERED: HYDROCODONE/ACETAMINOPHEN 5/325MG TABLET PO PRN (18:15)
[2020-04-29] MEDS: LORAZEPAM 2MG/ML CPJ IV PRN (19:32)
[2020-04-29 20:49] VITALS: BP 117/60
[2020-04-30] MEDS: DIPHENHYDRAMINE 50MG/ML VIAL IV PRN ×3 (00:33→16:38)
[2020-04-30 00:45] VITALS: BP 133/75
[2020-04-30] MEDS: LORAZEPAM 2MG/ML CPJ IV PRN (03:36)
[2020-04-30 04:00] VITALS: BP 136/62
[2020-04-30 08:00] VITALS: BP 118/76
[2020-04-30] MEDS: FUROSEMIDE 40MG TABLET PO SCH ×3 (09:00→19:41)
[2020-04-30] MEDS: ENOXAPARIN 40MG/0.4ML SYR SUBCUT SCH ×3 (09:00→19:40)
[2020-04-30] MEDS: POTASSIUM CHLORIDE 20MEQ TABLET SR PO SCH ×2 (09:05→16:40)
[2020-04-30] MEDS: ASPIRIN 81MG EC TABLET PO SCH (09:06)
[2020-04-30] MEDS: AMLODIPINE 5MG TABLET PO SCH ×2 (09:06→19:41)
[2020-04-30] MEDS: FLUOXETINE HCL 20MG CAPSULE PO SCH (09:06)
[2020-04-30] MEDS: IPRATROPIUM/ALBUTEROL 0.5-3(2.5)MG/3ML NEB NEB SCH ×2 (09:31→21:47)
[2020-04-30] MEDS ORDERED: HYDROMORPHONE HCL/PF 2MG/ML CPJ IV SCH ×2 (10:15→14:15)
[2020-04-30 12:00] VITALS: BP 126/66
[2020-04-30] MEDS ORDERED: HYDROCODONE/ACETAMINOPHEN 5/325MG TABLET PO PRN (14:15)
[2020-04-30 16:00] VITALS: BP 112/57
[2020-04-30] MEDS: MORPHINE SULFATE 2 MG/ML CPJ (NOT FOR IM USE) IV PRN ×2 (20:24→23:19)
[2020-04-30 20:25] VITALS: BP 122/69
[2020-05-01] VITALS: BP 106/60
[2020-05-01] MEDS: DIPHENHYDRAMINE 50MG/ML VIAL IV PRN (01:31)
[2020-05-01] MEDS: MORPHINE SULFATE 2 MG/ML CPJ (NOT FOR IM USE) IV PRN ×2 (03:15→09:03)
[2020-05-01 04:00] VITALS: BP 119/68
[2020-05-01] MEDS: LORAZEPAM 2MG/ML CPJ IV PRN (06:17)
[2020-05-01 08:00] VITALS: BP 117/63
[2020-05-01] MEDS: IPRATROPIUM/ALBUTEROL 0.5-3(2.5)MG/3ML NEB NEB SCH ×2 (08:37→16:46)
[2020-05-01] MEDS: ENOXAPARIN 40MG/0.4ML SYR SUBCUT SCH ×2 (09:00→21:00)
[2020-05-01] MEDS: FUROSEMIDE 40MG TABLET PO SCH ×2 (09:00→21:00)
[2020-05-01] MEDS: FLUOXETINE HCL 20MG CAPSULE PO SCH (09:03)
[2020-05-01] MEDS: ASPIRIN 81MG EC TABLET PO SCH (09:03)
[2020-05-01] MEDS: POTASSIUM CHLORIDE 20MEQ TABLET SR PO SCH ×2 (09:03→17:16)
[2020-05-01] MEDS: AMLODIPINE 5MG TABLET PO SCH ×2 (09:15→21:00)
[2020-05-01] MEDS ORDERED: LORAZEPAM 1MG TABLET PO PRN (11:30)
[2020-05-01 12:00] VITALS: BP 120/71
[2020-05-01] MEDS: OXYCODONE HCL/ACETAMINOPHEN 5/325MG TABLET PO PRN ×2 (14:33→21:34)
[2020-05-01 16:00] VITALS: BP 141/63
[2020-05-01 20:00] VITALS: BP 96/58
[2020-05-02 00:35] VITALS: BP 98/64
[2020-05-02 04:30] VITALS: BP 91/51
[2020-05-02 07:40] VITALS: BP 113/51
[2020-05-02] MEDS: OXYCODONE HCL/ACETAMINOPHEN 5/325MG TABLET PO PRN ×3 (07:44→16:55)
[2020-05-02] MEDS: IPRATROPIUM/ALBUTEROL 0.5-3(2.5)MG/3ML NEB NEB SCH (08:59)
[2020-05-02] MEDS: AMLODIPINE 5MG TABLET PO SCH ×3 (09:00→21:18)
[2020-05-02] MEDS: ENOXAPARIN 40MG/0.4ML SYR SUBCUT SCH ×2 (09:00→21:00)
[2020-05-02] MEDS: ASPIRIN 81MG EC TABLET PO SCH ×2 (09:00→09:41)
[2020-05-02] MEDS: FLUOXETINE HCL 20MG CAPSULE PO SCH ×2 (09:00→09:41)
[2020-05-02] MEDS: POTASSIUM CHLORIDE 20MEQ TABLET SR PO SCH ×3 (09:00→16:52)
[2020-05-02] MEDS: FUROSEMIDE 40MG TABLET PO SCH ×3 (09:00→21:00)
[2020-05-02 12:00] VITALS: BP 137/65
[2020-05-02 16:00] VITALS: BP 110/69
[2020-05-02 20:00] VITALS: BP 108/61
[2020-05-02] MEDS: DIPHENHYDRAMINE 25MG CAPSULE PO PRN (22:04)
[2020-05-03 04:00] VITALS: BP 99/58
[2020-05-03] MEDS: IPRATROPIUM/ALBUTEROL 0.5-3(2.5)MG/3ML NEB NEB SCH ×2 (07:49→16:08)
[2020-05-03 09:00] VITALS: BP 123/72
[2020-05-03] MEDS: ENOXAPARIN 40MG/0.4ML SYR SUBCUT SCH ×2 (09:00→21:00)
[2020-05-03] MEDS: FUROSEMIDE 40MG TABLET PO SCH ×3 (09:00→21:00)
[2020-05-03] MEDS: ASPIRIN 81MG EC TABLET PO SCH (09:09)
[2020-05-03] MEDS: AMLODIPINE 5MG TABLET PO SCH ×2 (09:09→21:00)
[2020-05-03] MEDS: POTASSIUM CHLORIDE 20MEQ TABLET SR PO SCH ×2 (09:09→17:00)
[2020-05-03] MEDS: OXYCODONE HCL/ACETAMINOPHEN 5/325MG TABLET PO PRN ×2 (09:09→20:07)
[2020-05-03] MEDS ORDERED: CALCIUM CARBONATE 500MG TABLET CHEW PO PRN (10:45)
[2020-05-03] MEDS: FLUOXETINE HCL 20MG CAPSULE PO SCH (11:13)
[2020-05-03 16:00] VITALS: BP 115/67
[2020-05-03] MEDS: DIPHENHYDRAMINE 25MG CAPSULE PO PRN (18:29)
[2020-05-03 20:06] VITALS: BP 118/60
[2020-05-04 00:16] VITALS: BP 108/55
[2020-05-04 04:00] VITALS: BP 115/71
[2020-05-04 08:00] VITALS: BP 124/72
[2020-05-04] MEDS: DIPHENHYDRAMINE 25MG CAPSULE PO PRN (08:23)
[2020-05-04] MEDS: AMLODIPINE 5MG TABLET PO SCH (08:24)
[2020-05-04] MEDS: ASPIRIN 81MG EC TABLET PO SCH (08:24)
[2020-05-04] MEDS: POTASSIUM CHLORIDE 20MEQ TABLET SR PO SCH ×2 (08:24→17:59)
[2020-05-04] MEDS: FLUOXETINE HCL 20MG CAPSULE PO SCH (08:24)
[2020-05-04] MEDS: FUROSEMIDE 40MG TABLET PO SCH (08:29)
[2020-05-04] MEDS: ENOXAPARIN 40MG/0.4ML SYR SUBCUT SCH ×2 (08:30→21:00)
[2020-05-04] MEDS: IPRATROPIUM/ALBUTEROL 0.5-3(2.5)MG/3ML NEB NEB SCH ×2 (08:39→15:59)
[2020-05-04 12:00] VITALS: BP 111/63
[2020-05-04] MEDS ORDERED: ALBU18HF2 IH (14:33)
[2020-05-04] MEDS ORDERED: FURO40TA5 PO (14:33)
[2020-05-04] MEDS ORDERED: AMLO5TAB88 PO (14:33)
[2020-05-04] MEDS ORDERED: APIX5TAB PO (14:33)
[2020-05-04] MEDS ORDERED: POTA20TA82 MT (14:33)
[2020-05-04] MEDS: OXYCODONE HCL/ACETAMINOPHEN 5/325MG TABLET PO PRN ×2 (15:19→21:18)
[2020-05-04 15:26] VITALS: BP 112/70
[2020-05-04] MEDS ORDERED: OXYC-100 MT (15:56)
[2020-05-04 20:00] VITALS: BP 113/80
[2020-05-04] MEDS: AMLODIPINE 2.5MG TABLET PO SCH (21:00)
[2020-05-05] VITALS: BP 111/68
[2020-05-05 04:00] VITALS: BP 126/68
[2020-05-05 08:00] VITALS: BP 109/56
[2020-05-05] MEDS: POTASSIUM CHLORIDE 20MEQ TABLET SR PO SCH (08:36)
[2020-05-05] MEDS: ASPIRIN 81MG EC TABLET PO SCH (08:36)
[2020-05-05] MEDS: FLUOXETINE HCL 20MG CAPSULE PO SCH (08:36)
[2020-05-05] MEDS: AMLODIPINE 2.5MG TABLET PO SCH (08:39)
[2020-05-05] MEDS: OXYCODONE HCL/ACETAMINOPHEN 5/325MG TABLET PO PRN (08:39)
[2020-05-05] MEDS: ENOXAPARIN 40MG/0.4ML SYR SUBCUT SCH (08:39)
[2020-05-05] MEDS ORDERED: FUROSEMIDE 40MG TABLET PO SCH (09:00)
[2020-05-05 09:49] VITALS: BP 109/56
== END 2020-05-05 11:20 | DRG 203 ==
LOC: ER 00:47 → MICUSO 03:29 → EDBEDREQ 03:32 → EDBEDREQTM 03:32 → 6WST 04-27 02:08
PROVIDERS: ADMIT Internal Medicine; ATTEND Internal Medicine
PROC: 0JB90ZZ Excision of Buttock Subcutaneous Tissue and Fascia, Open Approach (ICD-10-PCS; principal; 2020-04-28)
DX: M94.0 Chondrocostal junction syndrome [Tietze] (principal); L02.31 Cutaneous abscess of buttock; I50.43 Acute on chronic combined systolic (congestive) and diastolic (congestive) heart failure; I11.0 Hypertensive heart disease with heart failure; F41.9 Anxiety disorder, unspecified; G47.33 Obstructive sleep apnea (adult) (pediatric); E66.09 Other obesity due to excess calories; Z68.42 Body mass index [BMI] 45.0-49.9, adult; E11.65 Type 2 diabetes mellitus with hyperglycemia; F20.9 Schizophrenia, unspecified; F14.129 Cocaine abuse with intoxication, unspecified; I48.0 Paroxysmal atrial fibrillation; F12.90 Cannabis use, unspecified, uncomplicated; F17.210 Nicotine dependence, cigarettes, uncomplicated; T81.89XA Other complications of procedures, not elsewhere classified, initial encounter; R74.0 Nonspecific elevation of levels of transaminase and lactic acid dehydrogenase [LDH]; L89.309 Pressure ulcer of unspecified buttock, unspecified stage; E66.9 Obesity, unspecified; F32.9 Major depressive disorder, single episode, unspecified; G89.4 Chronic pain syndrome; I43 Cardiomyopathy in diseases classified elsewhere; J44.9 Chronic obstructive pulmonary disease, unspecified; Z79.01 Long term (current) use of anticoagulants; Z59.0 Homelessness; Z79.4 Long term (current) use of insulin; Z79.51 Long term (current) use of inhaled steroids; Z95.0 Presence of cardiac pacemaker; Z79.82 Long term (current) use of aspirin; Z79.899 Other long term (current) drug therapy; Z82.3 Family history of stroke; Z82.49 Family history of ischemic heart disease and other diseases of the circulatory system; Z91.14 Patient's other noncompliance with medication regimen; Z91.19 Patient's noncompliance with other medical treatment and regimen; Z76.5 Malingerer [conscious simulation]; Z79.84 Long term (current) use of oral hypoglycemic drugs; Y92.89 Other specified places as the place of occurrence of the external cause; Z11.59 Encounter for screening for other viral diseases
CPT/HCPCS: 36415; 71045; 74176; 80048; 80053; 80305; 82962; 83036; 83735; 83880; 84100; 84134; 84484; 85025; 93005; 93306; 94640; 97116; 97162; 99285; J1170; J1200; J1650; J2060; J2270; J3490; J7060; Q0163; Q9963; U0003-CS

== ENCOUNTER 2021-03-21 10:47 | Emergency (ER) | payer MEDICAID ==
[~2021-03-21] VITALS: Ht 175.3 cm; Wt 133.0 kg
[~2021-03-21 10:47] MED LIST changes: -ALPR0.5T PO; +ASPI-1406 PO; -CARI350T27 PO; -LOSA50TA3 PO; +OXYC-100 MT; +POTA20TA82 MT
[2021-03-21] MEDS ORDERED: SODIUM CHLORIDE 0.9% 1,000 ML IV ONE (11:30)
[2021-03-21 12:25] LABS: CHLORIDE 110 mEq/L (98-107)
[2021-03-21 12:30] LABS: ETHANOL BLOOD < 10 mg/dL
[2021-03-21 12:48] VITALS: BP 126/147
[2021-03-21 13:02] LABS: BASOPHILS % 0.8 % (0.0-2.0); EOSINOPHILS % 2.6 % (0.0-5.0); HEMATOCRIT. 40.8 % (42.0-52.0); HEMOGLOBIN. 13.9 g/dL (14.0-18.0); MEAN CORPUSCULAR HEMOGLOBIN 31.6 pg (28.0-32.0); MEAN CORPUSCULAR VOLUME 93.1 fL (80.0-94.0); MEAN PLATELET VOLUME 7.2 fl (7.4-10.4); MONOCYTES % 9.6 % (2.0-8.0); PLATELET 396 x1000/uL (130-400); RED BLOOD CELL COUNT 4.38 mill/uL (4.7-6.1); RED CELL DISTRIBUTION WIDTH 15.5 % (11.6-14.6)
[2021-03-21 13:19] LABS: *COCAINE SCREEN URINE PRESUMTIVE POSITIVE (NEGATIVE); METHADONE URINE SCREEN NEGATIVE (NEGATIVE); OPIATES URINE SCREEN NEGATIVE (NEGATIVE)
[2021-03-21 13:20] LABS: CANNABINOID URINE SCREEN NEGATIVE (NEGATIVE); PHENCYCLIDINE URINE SCREEN NEGATIVE (NEGATIVE)
[2021-03-21 13:22] LABS: *BARBITURATES SCREEN URINE NEGATIVE (NEGATIVE)
[2021-03-21 13:25] LABS: *BENZODIAZEPINES SCREEN URINE NEGATIVE (NEGATIVE)
[2021-03-21 13:27] LABS: *AMPHETAMINES SCREEN URINE NEGATIVE (NEGATIVE)
[2021-03-21] MEDS ORDERED: NITROGLYCERIN 0.4MG TABLET SL SL ONE ×2 (15:00)
[2021-03-21] MEDS ORDERED: ASPIRIN 325MG EC TABLET PO ONE ×2 (15:00)
== END 2021-03-21 15:17 | disposition left against medical advice (07) ==
LOC: ER 10:47
DX: F14.10 Cocaine abuse, uncomplicated (principal); R07.89 Other chest pain; R51.9 Headache, unspecified; R55 Syncope and collapse; F12.10 Cannabis abuse, uncomplicated; I48.91 Unspecified atrial fibrillation; I10 Essential (primary) hypertension; Z86.73 Personal history of transient ischemic attack (TIA), and cerebral infarction without residual deficits; Z98.890 Other specified postprocedural states; Z79.899 Other long term (current) drug therapy
CPT/HCPCS: 36415; 71045; 80053; 80305; 80320; 83880; 84484; 85025; 85379; 93005; 99285; J7030; G0480